=== PATIENT | male | born 1965 | race Caucasian/White ===

== ENCOUNTER 2024-04-21 08:38 | Outpatient (OUT) | payer OTHER, SELFPAY ==
--- NOTE | 2024-04-20 10:45 | VEINCLINIC_ITS ---
Vital Signs 04/21/24 08:49 Height 6 ft Weight 161.025 kg BMI 48.1 BP 110/66 BP Location Left Brachial BP Position Sitting BP Cuff Size Adult BP Source Manual Cuff Respiration 18 Pulse 67 Pulse Oximetry (%) 97 Varicose Veins Patient on this day for comprehensive consult for bilateral painful varicose veins. Referred by Dr. Han for chronic edema that is worsening. He is on Lasix which has helped. 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 Patient has worn stockings for the past 3 years with minimal relief. Nam Vargas MD personally performed the services described in this documentation, as scribed by Jena Garrett RN in my presence and it is both accurate and complete. IJena RN, am scribing for, and in the presence of, Dr. Nam Meza and in the presence of the patient. thigh: bilateral, knee: bilateral, calf: bilateral, ankle: bilateral and robert: bilateral tender 7 10 years Worsened in recent months: Yes standing elevating extremities and compression stockings Reports fatigue, heaviness, limb pain, edema and leg edema History of lower extremity trauma: Yes Superficial thrombophlebitis: No Family history of varicose veins: no Has patient had previous lower extremity venous surgery: No Patient has previously received the following treatment(s) for lower extremity varicose veins: Reports none Does patient have a history of : not applicable Does patient intend to have future pregnancies: not applicable Has patient had lower extremity venous scan with relux testing: Yes Support hose used: Yes Problems walking or doing physical activity: Yes How does it affect you: effects ADL and work life Do you walk much: Yes Do you stand much: Yes Review of Systems ROS Narrative Patient has heeled right robert wound. Nam aVrgas MD personally performed the services described in this documentation, as scribed by Jena Garrett RN in my presence and it is both accurate and complete. IJena RN, am scribing for, and in the presence of, Dr. Nam Meza and in the presence of the patient. Status of ROS 10 or more systems reviewed and unremark able except as noted in history and below Cardiovascular Reports: edema and swelling of feet/ankles Musculoskeletal Reports: extremity pain, extremity swelling, joint pain and joint swelling Integumentary/Breast Reports: skin tenderness [facility] Medical History (Updated 04/21/24 @ 09:40 by Jena Garrett, SINDI) Pain due to varicose veins of both lower extremities ?I83.813 - Varicose veins of bilateral lower extremities with pain (ICD-10) Melanoma ?C43.9 - Malignant melanoma of skin, unspecified (ICD-10) Hypertension ?I10 - Essential (primary) hypertension (ICD-10) Vertigo ?R42 - Dizziness and giddiness (ICD-10) 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, unspecified (ICD-10) Myocardial infarct ?I21.9 - Acute myocardial infarction, unspecified (ICD-10) CAD (coronary artery disease) ?I25.10 - Atherosclerotic heart disease of [place] coronary artery without angina pectoris (ICD-10) Hypercholesteremia ?E78.00 - Pure hypercholesterolemia, unspecified (ICD-10) AAA (abdominal aortic aneurysm) ?I71.40 - Abdominal aortic aneurysm, without rupture, unspecified (ICD-10) Surgical History (Updated 04/21/24 @ 08:58 by Jena Garrett RN) S/P lateral meniscus repair of right knee ?Z98.890 - Other specified postprocedural states (ICD-10) H/O heart artery stent ?Z95.5 - Presence of coronary angioplasty implant and graft (ICD-10) History of endovascular stent graft for abdominal aortic aneurysm (AAA) ?Z95.828 - Presence of other vascular implants and grafts (ICD-10) Family History (Updated 04/21/24 @ 08:59 by Jena Garrett RN) Mother Family history of cancer Father Family history of myocardial infarction Family history of hypertension Family history of stroke Social History (Updated 04/21/24 @ 09:00 by Jena Garrett RN) Within the past year, how many standard drinks containing alcohol did you have on a typical day: 7 to 9 Smoking status: Former smoker Do you use any of these nicotine containing products: smokeless tobacco Nicotine containing products detail: smoked 3-4 PPD for 35 days. Quit 13 years ago. Non-prescribed substance use: denies use Meds Home Medications and Allergies Home Medications ?Medication ?Instructions ?Recorded ?Confirmed ?Type albuterol 90 mcg/actuation aerosol mcg inhalation 04/21/24 History inhaler aspirin 81 mg tablet,delayed 81 mg PO DAILY 04/21/24 04/21/24 History release (Adult Low Dose Aspirin) furosemide 20 mg tablet 20 mg PO DAILY 04/21/24 04/21/24 History lisinopril 10 mg tablet 10 mg PO DAILY 04/21/24 04/21/24 History lovastatin 10 mg tablet 10 mg PO DAILY 04/21/24 04/21/24 History nitroglycerin 0.4 mg sublingual 0.4 mg sublingual Q5M 04/21/24 04/21/24 History tablet potassium chloride 20 mEq oral 20 meq PO DAILY 04/21/24 04/21/24 History packet (Klor-Con) Allergies Allergy/AdvReac Type Severity Reaction Status Date / Time No Known Drug Allergies Allergy Unverified 04/21/24 09:00 Exam Narrative Exam Narrative: INam MD personally performed the services described in this documentation, as scribed by Jena Garrett RN in my presence and it is both accurate and complete. IJena RN, am scribing for, and in the presence of, Dr. Nam Meza and in the presence of the patient. Constitutional Documenting provider has reviewed patient's vital signs: yes Common normals: oriented x3 Nutritional appearance: overweight Lymph Lymphatic: no lymphedema noted Cardio Peripheral pulses: posterior tibial pulses present and dorsalis pedis pulses present Extremity General: calf tenderness, edema and other findings Right lower extremity: lower leg Right lower leg: inspection and palpation Left lower extremity: lower leg Left lower leg: inspection and palpation Neuro Common normals: oriented x3 Assessment and Plan Assessment and Plan (1) Pain due to varicose veins of both lower extremities: Plan Explained vein anatomy and physiology to patient. Explained the development of varicose veins to patient.? Explained varicose vein treatments to patient, including laser ablation, microfoam chemical ablation (Varithena), injection sclerotherapy and microphlebectomy.? Explained potential risks and benefits of varicose vein treatments.? Patient verbalizes understanding and wants to pursue varicose vein treatment.? Dr. Meza examines patient and reviews results of bilateral leg reflux u/s.? Patient and Dr. Meza creates a plan of care.? Patient also agrees to purchase bilateral thigh high compression stockings and wear them as educated.? Patient also educated on exercise and rest elevation of bilateral legs. Plan is to start with EVLT of left GSV. Prior authorization initiated. Will call patient to schedule when approved. Will initiate lymphedema clinic referral. I, Nam West, MD personally performed the services described in this documentation, as scribed by Jena Garrett RN in my presence and it is both accurate and complete. I, Jena Garrett RN, am scribing for, and in the presence of, Dr. Nam Meza and in the presence of the patient.
--- NOTE | 2024-04-20 10:46 | W.VEIN ---
Discharge Plan Discharge Disposition: Home, Self-Care Outpatient Diagnostics: VC Endovenous Perf Ablation LT (Routine) Timeframe: 2 Months Facility: [facility] - Location: Vein Center Ordered By: Nam Meza Follow Up Appointments: will call patient to schedule Plan of Treatment: prior authorization needed. Referral to lymphedema. Patient Instructions: Endovenous Ablation (GEN) Print Language: Syriac Discharge Date/Time: 04/21/24 10:15
--- NOTE | 2024-04-21 08:45 | VEIN_ITS ---
Patient Name: LIZZY KELLY MR#: [id number] : 1965 Exam Date: 04/21/2024 Ordering Doctor: DR RONY SAUNDERS D.P.M. RADIOLOGY REPORT PROCEDURE: [facility] - OFFICE VISIT INITIAL COMPARISON: None. PROGRESS NOTES: 58-year-old male who presents a long history of lower extremity painful varicose veins with chronic subcutaneous edema period this culminated in a nonhealing wound along the right ankle. The patient was referred by Dr. Rangel . 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 His swelling is significantly decreased when he wakes from sleep. Patient does have some relief with compression stockings and leg elevation. The patient denies any signs and symptoms to suggest arterial ischemia. The patient describes a family history significant for cancer myocardial infarction hypertension and stroke. The patient does drink 79 drinks per day. The patient does not currently smoke but does use smokeless tobacco. The patient has a 90-100 pack year history of smoking discontinuing 13 years ago. The patient's current medical history is significant for melanoma, primary hypertension, vertigo, myocardial infarction, coronary artery disease with 4 stents. Hypercholesterolemia and a 12 cm abdominal aortic aneurysm with endograft placement. No history of deep venous thrombus or pulmonary embolus. See separate history and physical for medication list. No prior treatment for varicose or spider veins. After review of nurse notes, history and physical exam I discussed at length the pathophysiology of venous hypertension and possible treatments, therapies and strategies available. We discussed at length the importance of elevating the lower extremities above the level of the heart, increased physical activity and compression stocking use. 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 I did refer the patient to the lymphedema clinic. We did discussed intravenous laser ablation micro foam chemical ablation at length. Risks benefits and alternatives were discussed with the patient. We decided to start with the worst vein, the left great saphenous vein to CF patient has some improvement in symptoms. Additionally the patient purchased 30-40 mm knee high compression stockings for lymphedema. The patient was given referral to the lymphedema clinic. Ultrasound venous reflux study performed the same day was discussed at length with the patient. The report demonstrates moderate right and mild left great saphenous vein venous insufficiency with dilatation and saphenofemoral junction reflux. Incompetent right leg perforating vein in the region of the patient's ulcer. Bilateral incompetent varicose veins PHYSICAL EXAM: The right leg demonstrates mild scattered varicose and reticular veins. Extensive subcutaneous edema below the knee with pitting edema. Evidence of healing venous stasis ulceration on the ankle. Multiple scars. The left leg demonstrates mild scattered varicose reticular veins. Extensive subcutaneous edema below the knee with pitting edema. Multiple scars. Both thighs, legs and feet were symmetrically warm to the touch. posterior tibial and dorsalis pedis pulses were not definitively , possibly related to edema. VEIN/VC Facility EST Comprehensive IMPRESSION: 1. Bilateral great saphenous vein and right leg perforating vein venous insufficiency with dilatation and saphenofemoral junction reflux 2. Bilateral lower extremity varicose veins 3. Severe multifactorial lower extremity subcutaneous edema 4. No definite flow significant arterial disease 5. CEAP: C5, Ep, Asd, Pr PLAN: 1. Endovenous laser ablation of the left patient has we will right great saphenous vein right perforating vein 2. Micro foam chemical ablation bilateral incompetent varicose veins 3. Long-term use of bilateral knee high 30-40 mm compression stockings 4. Referral to the [facility] 5. Elevated legs , weight loss and increased physical activity for symptomatic relief Nurse notes, history and physical were reviewed and confirmed, see attached forms. The nurse was present throughout the physical exam and consultation Dictated by: Nam Meza MD on 04/21/2024 at 11:13 Approved by: Nam Meza MD on 04/21/2024 at 11:20
--- NOTE | 2024-04-21 08:46 | VEIN_ITS ---
Patient Name: LIZZY KELLY MR#: [id number] : 1965 Exam Date: 04/21/2024 Ordering Doctor: DR RONY SAUNDERS D.P.M. RADIOLOGY REPORT PROCEDURE: VC EXT VENOUS REFLUX GELA LMTD COMPARISON: None. INDICATIONS: I83.813 Bilateral painful varicose veins TECHNIQUE: Duplex imaging of the lower extremity to assess the deep and superficial venous system for the presence of deep or superficial venous incompetence and to document the location and severity of disease. The study includes evaluation of the great saphenous vein (GSV), anterior accessory saphenous vein (AASV) and small saphenous vein (SSV). Patient scanned in reverse Trendelenburg and standing. FINDINGS: RIGHT LOWER EXTREMITY: Saphenofemoral Junction Reflux: Yes 9.9mm 1.5 sec GSV: Diam (mm) Reflux/ Time (sec) Proximal Thigh 5.8 Yes 0.7 Mid Thigh 5.8 Yes 0.9 Distal Thigh 4.7 Yes 0.5 Prox Calf 4.0 No Mid Calf 3.9 Yes 1.2 Saphenopopliteal Junction Reflux: 5.5mm Yes 0.8 SSV: Proximal Calf 3.1 No Mid Calf 2.7 No AASV: Not present Thrombi: No acute or chronic thrombus visualized Compressibility: Normal Flow: Normal Preforator: Dist/med calf 6.4mm with 0.7s reflux. Tech Note: Incompetent GSV. Patent varicose vein mid/med calf 4.3mm with 1.7s reflux. Patent varicose vein medial knee 4.0mm with 0.9s reflux. Patent varicose vein 3.4mm with 1.4s reflux. LEFT LOWER EXTREMITY: Saphenofemoral Junction Reflux: Yes 11.1 mm 1.6 sec GSV: Diam (mm) Reflux/Time (sec) Proximal Thigh 6.5 Yes 1.2 Mid Thigh 6.7 No Distal Thigh 6.6 Yes 0.7 Prox Calf 5.3 Yes 3.7 Mid Calf 4.5 Yes 3.5 Saphenopopliteal Junction Relux: 4.5 mm No SSV: Proximal Calf 2.7 No Mid Calf 3.0 No AASV: Not present Thrombi: No acute or chronic thrombus visualized Compressibility: Normal Flow: Normal [employer] Driver: No patent perforators visualized. Tech Note: Incompetent GSV. Patent varicose vein mid/med calf 5.4mm with 2.2s reflux. Patent varicose vein mid/posterior 5.1mm with 1.5s reflux. CONCLUSION: 1. Mild right and severe left great saphenous vein venous insufficiency with dilatation and saphenofemoral junction reflux 2. Incompetent right leg perforating vein with associated wound 3. Bilateral incompetent varicose veins Dictated by: Nam Meza MD on 04/21/2024 at 09:45 Approved by: Nam Meza MD on 04/21/2024 at 09:47
[2024-04-21 08:49] VITALS: BP 110/66; PULSE 67; O2SAT 97; BMI 48.1
== END 2024-04-21 10:15 | disposition home or self-care (01) ==
LOC: VC 08:39
PROVIDERS: PCP Podiatrist Foot & Ankle Surgery; Visit Provider Podiatrist Foot & Ankle Surgery
DX: I87.2 Venous insufficiency (chronic) (peripheral) (principal); L03.115 Cellulitis of right lower limb; I83.813 Varicose veins of bilateral lower extremities with pain
CPT/HCPCS: 93970; G0463

== ENCOUNTER 2024-04-24 09:40 | Outpatient (RCR) | payer OTHER, SELFPAY | END 2024-05-16 13:32 | disposition home or self-care (01) | LOC: OT 09:40 | PROVIDERS: PCP Podiatrist Foot & Ankle Surgery; Visit Provider Radiology Diagnostic Radiology | DX: R60.0 Localized edema (principal); I89.0 Lymphedema, not elsewhere classified | CPT/HCPCS: 97140; 97167; 97535 ==

== ENCOUNTER 2024-06-04 08:35 | Outpatient (OUT) | payer OTHER, SELFPAY ==
--- NOTE | 2024-06-03 15:24 | VEINCLINIC_ITS ---
Vital Signs 06/04/24 08:59 BP 150/72 H BP Location Right Brachial BP Position Sitting BP Cuff Size Large Adult BP Source Manual Cuff Respiration 18 Pulse 79 Pulse Source Monitor Pulse Oximetry (%) 95 Oxygen Delivery Method Room Air Comment The patient's blood pressure is elevated. Varicose Veins Patient in this day for EVLT of left GSV Nam Vargas MD personally performed the services described in this documentation, as scribed by Dylan Ying RN in my presence and it is both accurate and complete. Dylan Vargas RN, am scribing for, and in the presence of, Dr. Nam Meza and in the presence of the patient. thigh: bilateral, knee: bilateral, calf: bilateral, ankle: bilateral and robert: bilateral tender 7 10 years Worsened in recent months: Yes standing elevating extremities and compression stockings Reports fatigue, heaviness, limb pain, edema and leg edema History of lower extremity trauma: Yes Superficial thrombophlebitis: No Family history of varicose veins: no Has patient had previous lower extremity venous surgery: No Patient has previously received the following treatment(s) for lower extremity varicose veins: Reports none Does patient have a history of : not applicable Does patient intend to have future pregnancies: not applicable Has patient had lower extremity venous scan with relux testing: Yes Support hose used: Yes Problems walking or doing physical activity: Yes How does it affect you: effects ADL and work life Do you walk much: Yes Do you stand much: Yes Review of Systems ROS Narrative Patient has heeled right robert wound. Nam Vargas MD personally performed the services described in this documentation, as scribed by Dylan Ying RN in my presence and it is both accurate and complete. Dylan Vargas RN, am scribing for, and in the presence of, Dr. Nam Meza and in the presence of the patient. Status of ROS 10 or more systems reviewed and unremark able except as noted in history and below Cardiovascular Reports: edema and swelling of feet/ankles Musculoskeletal Reports: extremity pain, extremity swelling, joint pain and joint swelling Integumentary/Breast Reports: skin tenderness [facility] Medical History (Updated 06/04/24 @ 08:55 by Dylan Ying) Thrombophlebitis of femoropopliteal vein of left lower extremity ?I80.02 - Phlebitis and thrombophlebitis of superficial vessels of left lower extremity (ICD-10) Pain due to varicose veins of both lower extremities ?I83.813 - Varicose veins of bilateral lower extremities with pain (ICD-10) Melanoma ?C43.9 - Malignant melanoma of skin, unspecified (ICD-10) Hypertension ?I10 - Essential (primary) hypertension (ICD-10) Vertigo ?R42 - Dizziness and giddiness (ICD-10) 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, unspecified (ICD-10) Myocardial infarct ?I21.9 - Acute myocardial infarction, unspecified (ICD-10) CAD (coronary artery disease) ?I25.10 - Atherosclerotic heart disease of [place] coronary artery without angina pectoris (ICD-10) Hypercholesteremia ?E78.00 - Pure hypercholesterolemia, unspecified (ICD-10) AAA (abdominal aortic aneurysm) ?I71.40 - Abdominal aortic aneurysm, without rupture, unspecified (ICD-10) Surgical History (Updated 06/04/24 @ 09:25 by Dylan Ying) Status post laser ablation of incompetent vein ?Z98.890 - Other specified postprocedural states (ICD-10) S/P lateral meniscus repair of right knee ?Z98.890 - Other specified postprocedural states (ICD-10) H/O heart artery stent ?Z95.5 - Presence of coronary angioplasty implant and graft (ICD-10) History of endovascular stent graft for abdominal aortic aneurysm (AAA) ?Z95.828 - Presence of other vascular implants and grafts (ICD-10) Family History (Updated 04/21/24 @ 08:59 by Jena Garrett RN) Mother Family history of cancer Father Family history of myocardial infarction Family history of hypertension Family history of stroke Social History (Updated 04/21/24 @ 09:00 by Jena Garrett RN) Within the past year, how many standard drinks containing alcohol did you have on a typical day: 7 to 9 Smoking status: Former smoker Do you use any of these nicotine containing products: smokeless tobacco Nicotine containing products detail: smoked 3-4 PPD for 35 days. Quit 13 years ago. Non-prescribed substance use: denies use Meds Home Medications and Allergies Home Medications ?Medication ?Instructions ?Recorded ?Confirmed ?Type albuterol 90 mcg/actuation aerosol mcg inhalation 04/21/24 History inhaler aspirin 81 mg tablet,delayed 81 mg PO DAILY 04/21/24 04/21/24 History release (Adult Low Dose Aspirin) furosemide 20 mg tablet 20 mg PO DAILY 04/21/24 04/21/24 History lisinopril 10 mg tablet 10 mg PO DAILY 04/21/24 04/21/24 History lovastatin 10 mg tablet 10 mg PO DAILY 04/21/24 04/21/24 History nitroglycerin 0.4 mg sublingual 0.4 mg sublingual Q5M 04/21/24 04/21/24 History tablet potassium chloride 20 mEq oral 20 meq PO DAILY 04/21/24 04/21/24 History packet (Klor-Con) Allergies Allergy/AdvReac Type Severity Reaction Status Date / Time No Known Drug Allergies Allergy Unverified 04/21/24 09:00 Exam Narrative Exam Narrative: Nam Vargas MD personally performed the services described in this documentation, as scribed by Dylan Ying RN in my presence and it is both accurate and complete. IDylan RN, am scribing for, and in the presence of, Dr. Nam Meza and in the presence of the patient. Constitutional Documenting provider has reviewed patient's vital signs: yes Common normals: oriented x3 Nutritional appearance: overweight Lymph Lymphatic: no lymphedema noted Cardio Peripheral pulses: posterior tibial pulses present and dorsalis pedis pulses present Extremity General: calf tenderness, edema and other findings Right lower extremity: lower leg Right lower leg: inspection and palpation Left lower extremity: lower leg Left lower leg: inspection and palpation Neuro Common normals: oriented x3 Assessment and Plan Assessment and Plan (1) Pain due to varicose veins of both lower extremities: Plan f/u evaluation with physician along with left leg limited u/s Nam Vargas MD personally performed the services described in this documentation, as scribed by Dylan Ying RN in my presence and it is both accurate and complete. Dylan Vargas RN, am scribing for, and in the presence of, Dr. Nam Meza and in the presence of the patient. Procedures Procedure Instructions Procedures Plan of care: Risks and benefits of the procedure were discussed at length and informed written consent was obtained.? Time-out completed for verification of correct patient, procedure and site.? Staff present during time-out: Dylan Ying RN,? Nam Meza MD, Carmen Roque RDMS,RVT. Time Out Time__929____ Patient prepped and procedure performed in usual sterile fashion. Risk of injury related to use of Diode laser and/or laser devices__CR___ ? Serial number of laser used :? [id number] Control panel self test performed, electrical cords in good condition, floor is dry, basin of water available, fire extinguisher in close proximity_CR__ Polycarbonate goggles available and Laser warning signs outside of doors___CR__ Eye protection provided to patient and staff in room_CR___ Use of laser retardant drapes and dull blackened instruments as directed__CR___ Use of nonflammable prep solutions and use of saline soaked sponges to protect tissues as indicated _CR___ Length ___43 cm Laser operated by __Dr. Meza Physician verbal confirmation laser locked in place__CR__ Laser start time (date and time) _06/04/2024@_0943 Laser stop time(date and time) _06/04/2024@_0948 Lisa _8.0___ Average laser use __2252 Joules Average laser use__281 seconds Pulse continuous ___CR_? Pulse intermittent ___ Amount of Tumescent used _300cc Evaluated patient for signs and symptoms of electrical injury __CR___ ? Skin clear at insertion site __CR___ Patient tolerated procedure well.? Left leg Coban dressing applied to access site.? Applied Left thigh high leg compression stocking. Will return on 06/10/2024 for Left leg limited venous ultrasound and exam. INam MD personally performed the services described in this documentation, as scribed by Dylan Ying RN in my presence and it is both accurate and complete. I, Dylan Ying RN, am scribing for, and in the presence of, Dr. Nam Meza and in the presence of the patient.
--- NOTE | 2024-06-03 15:27 | W.VEIN ---
Discharge Plan Discharge Disposition: Home, Self-Care Outpatient Diagnostics: VC Facility EST LMTD (Routine) Timeframe: 2 Weeks Facility: [facility] - Location: Vein Center Ordered By: Nam Meza VC EXT Venous LT Limited (Routine) Timeframe: 2 Weeks Facility: [facility] - Location: Vein Center Ordered By: Nam Meza Follow Up Appointments: 06/10/2024 Plan of Treatment: f/u evaluation with physician along with left leg limited u/s Patient Instructions: Endovenous Ablation (DC) Print Language: Divehi Discharge Date/Time: 06/04/24 09:24
[2024-06-04] MEDS: 0.9 % SODIUM CHLORIDE 500 ML, LIDOCAINE HCL 20 ML, SODIUM BICARBONATE 10 MEQ INJ (08:40)
[2024-06-04] MEDS: LIDOCAINE HCL 1% 100 MG/10 ML MDV INJ (08:40)
--- NOTE | 2024-06-04 08:57 | VEIN_ITS ---
[address] [address] Patient Name: LIZZY KELLY MRN: [id number] date: 1965 Sex: M Assigned Patient Location: Current Patient Location: Accession/Order Number: [id number] Exam Date: 06/04/2024 08:57 Report Date: 06/04/2024 09:55 At the request of: ALEX CHARLES Procedure: VC Endovenous Ablation 1VeinLT EXAMINATION: VC Endovenous Ablation 1Vein, left great saphenous vein HISTORY: I83.813 - Varicose veins of bilateral lower extremities w... COMPARISON: No relevant comparison available. TECHNIQUE: The risks and benefits of the procedure had been previously discussed, and were rediscussed at length. Informed written consent was obtained. Hilary Woods and Dylan Ying assisted. Time out procedure was performed. The left lower extremity was prepared and draped in the usual sterile fashion to allow knee flexion in the sterile field. Duplex ultrasound probe was draped in a sterile cover, sterile transmission gel was used. Venous mapping was performed with the areas of dilation and large tributaries marked. The total length was 43 cm from the entry upper calf to 3 cm below the saphenofemoral junction. The vein beneath the entry point was not amenable to ablation. The diameter of the greater saphenous vein ranged from 4-7 mm. A 30 gauge needle and 1% buffered lidocaine was used to anesthetize the entry site. A 4 mm incision was made with a scalpel and the saphenous vein was entered percutaneously under direct ultrasound guidance with a micropuncture set, a single stick was successful in gaining access. A micro-guide wire was inserted and the needle removed. A micro-set including a dilator was inserted over the microwire and the needle and dilator were removed. A 0.018 guide wire was inserted through the micro-set and threaded through the saphenous vein to the saphenofemoral junction. The dilator was removed and an introducer sheath was inserted over the wire until the end of the sheath entered the saphenofemoral junction. The dilator and wire were removed and the 600 micron fiber was introduced and placed and positioned so that it extended beyond the sheath and was 3 cm peripheral to the saphenofemoral femoral junction. Final position of the fiber was determined by ultrasound guidance and duplex imaging. Tumescent anesthetic was delivered by ultrasound guidance. 300 cc of fluid was delivered along the entire course of the saphenous vein. The solution consisted of 1000 cc of normal saline with 40 mL of 1% lidocaine and 20 mL of sodium bicarbonate. A final positioning check was made. The energy source was turned on by means of the foot pedal and the fiber and sheath were withdrawn. The total number of Joules delivered was 2252. The laser was active for 281seconds under continuous pulse, average laser use of 8 J. Laser start time 9:43 AM 06/04/2024 . Laser stop time 9:48 AM 06/04/2024 . A duplex ultrasound revealed compressibility and flow at the saphenofemoral junction immediately after the procedure. Hemostasis at the access site was achieved. The skin incision of the saphenous vein was closed with a 4 x 4. A compression stocking was applied. Postop instructions were given. A follow up appointment was recommended and scheduled. The patient tolerated the procedure well and was discharged in good condition . VEIN/VC Endovenous Ablation 1VeinLT IMPRESSION: Technically successful endovenous laser ablation left great saphenous vein Electronically authenticated by: ALEX CHARLES Date: 06/04/2024 09:55
[2024-06-04 08:59] VITALS: BP 150/72; PULSE 79; O2SAT 95
== END 2024-06-04 09:24 | disposition home or self-care (01) ==
LOC: VC 08:35
PROVIDERS: PCP Podiatrist Foot & Ankle Surgery; Visit Provider Radiology Diagnostic Radiology
DX: I83.813 Varicose veins of bilateral lower extremities with pain (principal)
CPT/HCPCS: 36478

== ENCOUNTER 2024-06-10 09:13 | Outpatient (OUT) | payer OTHER, SELFPAY ==
--- NOTE | 2024-06-10 09:14 | VEIN_ITS ---
Patient Name: LIZZY KELLY MR#: [id number] : 1965 Exam Date: 06/10/2024 Ordering Doctor: DR NAM MEZA M.D. RADIOLOGY REPORT PROCEDURE: VC EXT VENOUS LT LIMITED COMPARISON: None. INDICATIONS: I80.02 - Phlebitis and thrombophlebitis of superficial veins left leg TECHNIQUE: Lower extremity hudson scale and Duplex Doppler evaluation of the deep venous system from the inguinal ligament through the calf veins. FINDINGS: REGION: Left lower extremity. THROMBI: Negative for DVT. Heat induced thrombus in left GSV 1.5 cm from SFJ and extends to proximal lower leg. COMPRESSIBILITY: Non-compressible segments corresponding to thrombus FLOW: Areas of no flow corresponding to thrombus CONCLUSION: Post ablation occlusion of the left great saphenous vein with heat induced thrombus 1.5 cm from the saphenofemoral junction and no deep vein thrombus Dictated by: Nam Meza MD on 06/10/2024 at 09:41 Approved by: Nam Meza MD on 06/10/2024 at 09:42
--- NOTE | 2024-06-10 09:14 | VEIN_ITS ---
Patient Name: LIZZY KELLY MR#: [id number] : 1965 Exam Date: 06/10/2024 Ordering Doctor: DR NAM MEZA M.D. RADIOLOGY REPORT PROCEDURE: FACILITY EST LMTD [facility] - OFFICE VISIT FOLLOW UP COMPARISON: None. PROGRESS NOTES: The patient reports no significant problems following intravenous laser ablation of the left great saphenous vein. The patient has worn his compression stocking as directed for the patient has tried exercise. Physical exam demonstrates several small areas of bruising in the medial left thigh likely related to tumescence injection. The incision is sealed. Thrombosed left great saphenous vein can be partially palpated. No erythema or warmth to suggest cellulitis or thrombophlebitis. No active ulceration Review of the ultrasound performed the same day demonstrates occlusive thrombus extending throughout the treated left great saphenous vein with heat induced thrombus 1.5 cm from the saphenofemoral junction. No deep vein thrombus. The patient expressed a desire to proceed with treatment of incompetent right great saphenous vein. VEIN/ Facility EST LMTD IMPRESSION: 1. Successful ablation of the left great saphenous vein. 2. Persistent incompetent right great saphenous vein. PLAN: Intravenous laser ablation right great saphenous vein Nurse notes, history and physical were reviewed and confirmed, see attached forms. The nurse was present throughout the physical exam and consultation Dictated by: Nam Meza MD on 06/10/2024 at 09:50 Approved by: Nam Meza MD on 06/10/2024 at 09:52
--- NOTE | 2024-06-10 09:57 | VEINCLINIC_ITS ---
Vital Signs 06/10/24 09:58 Height 6 ft Weight 161 kg BMI 48.1 Varicose Veins Patient in today for follow up ultrasound of left lower extremity following EVLT of left leg GSV completed on 06/04/24. Nam Vargas MD personally performed the services described in this documentation, as scribed by Dinorah Jimenes RDMS in my presence and it is both accurate and complete. Dinorah Vargas RDMS, am scribing for, and in the presence of, Dr. Nam Meza and in the presence of the patient. thigh: bilateral, knee: bilateral, calf: bilateral, ankle: bilateral and robert: bilateral tender 7 10 years Worsened in recent months: Yes standing elevating extremities and compression stockings Reports fatigue, heaviness, limb pain, edema and leg edema History of lower extremity trauma: Yes Superficial thrombophlebitis: No Family history of varicose veins: no Has patient had previous lower extremity venous surgery: No Patient has previously received the following treatment(s) for lower extremity varicose veins: Reports none Does patient have a history of : not applicable Does patient intend to have future pregnancies: not applicable Has patient had lower extremity venous scan with relux testing: Yes Support hose used: Yes Problems walking or doing physical activity: Yes How does it affect you: effects ADL and work life Do you walk much: Yes Do you stand much: Yes Review of Systems ROS Narrative Nam Vargas MD personally performed the services described in this document ation, as scribed by Dinorah Jimenes RDMS in my presence and it is both accurate and complete. Dinorah Vargas RDMS, am scribing for, and in the presence of, Dr. Nam Meza and in the presence of the patient. Status of ROS 10 or more systems reviewed and unremark able except as noted in history and below Cardiovascular Reports: edema and swelling of feet/ankles Musculoskeletal Reports: extremity pain, extremity swelling, joint pain and joint swelling Integumentary/Breast Reports: skin tenderness 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, unspecified (ICD-10) Myocardial infarct ?I21.9 - Acute myocardial infarction, unspecified (ICD-10) CAD (coronary artery disease) ?I25.10 - Atherosclerotic heart disease of [place] coronary artery without angina pectoris (ICD-10) Hypercholesteremia ?E78.00 - Pure hypercholesterolemia, unspecified (ICD-10) AAA (abdominal aortic aneurysm) ?I71.40 - Abdominal aortic aneurysm, without rupture, unspecified (ICD-10) Surgical History (Updated 06/04/24 @ 09:25 by Dylan Ying) Status post laser ablation of incompetent vein ?Z98.890 - Other specified postprocedural states (ICD-10) S/P lateral meniscus repair of right knee ?Z98.890 - Other specified postprocedural states (ICD-10) H/O heart artery stent ?Z95.5 - Presence of coronary angioplasty implant and graft (ICD-10) History of endovascular stent graft for abdominal aortic aneurysm (AAA) ?Z95.828 - Presence of other vascular implants and grafts (ICD-10) Family History (Updated 04/21/24 @ 08:59 by Jena Garrett RN) Mother Family history of cancer Father Family history of myocardial infarction Family history of hypertension Family history of stroke Social History (Updated 04/21/24 @ 09:00 by Jena Garrett RN) Within the past year, how many standard drinks containing alcohol did you have on a typical day: 7 to 9 Smoking status: Former smoker Do you use any of these nicotine containing products: smokeless tobacco Nicotine containing products detail: smoked 3-4 PPD for 35 days. Quit 13 years ago. Non-prescribed substance use: denies use Meds Home Medications and Allergies Home Medications ?Medication ?Instructions ?Recorded ?Confirmed ?Type albuterol 90 mcg/actuation aerosol mcg inhalation 04/21/24 History inhaler aspirin 81 mg tablet,delayed 81 mg PO DAILY 04/21/24 04/21/24 History release (Adult Low Dose Aspirin) furosemide 20 mg tablet 20 mg PO DAILY 04/21/24 04/21/24 History lisinopril 10 mg tablet 10 mg PO DAILY 04/21/24 04/21/24 History lovastatin 10 mg tablet 10 mg PO DAILY 04/21/24 04/21/24 History nitroglycerin 0.4 mg sublingual 0.4 mg sublingual Q5M 04/21/24 04/21/24 History tablet potassium chloride 20 mEq oral 20 meq PO DAILY 04/21/24 04/21/24 History packet (Klor-Con) Allergies Allergy/AdvReac Type Severity Reaction Status Date / Time No Known Drug Allergies Allergy Unverified 04/21/24 09:00 Exam Narrative Exam Narrative: Nam Vargas MD personally performed the services described in this documentation, as scribed by Dinorah Jimenes RDMS in my presence and it is both accurate and complete. Dinorah Vargas RDMS, am scribing for, and in the presence of, Dr. Nam Meza and in the presence of the patient. Constitutional Documenting provider has reviewed patient's vital signs: yes Common normals: oriented x3 Nutritional appearance: overweight Lymph Lymphatic: no lymphedema noted Cardio Peripheral pulses: posterior tibial pulses present and dorsalis pedis pulses present Extremity General: calf tenderness, edema and other findings Right lower extremity: lower leg Right lower leg: inspection and palpation Left lower extremity: lower leg Left lower leg: inspection and palpation Neuro Common normals: oriented x3 Results Imaging Venous US: Radiologist's impression: Heat induced thrombus in left GSV 1.5 cm from SFJ and extends to proximal lower leg. Nam Vargas MD personally performed the services described in this documentation, as scribed by Dinorah Jimenes RDMS in my presence and it is both accurate and complete. Dinorah Vargas RDMS, am scribing for, and in the presence of, Dr. Nam Meza and in the presence of the patient. Assessment and Plan Assessment and Plan (1) Thrombophlebitis of femoropopliteal vein of left lower extremity: Plan Plan is for patient to return for EVLT of right leg GSV on 06/18/24. Nam Vargas MD personally performed the services described in this documentation, as scribed by Dinorah Jimenes RDMS in my presence and it is both accurate and complete. I, Dinorah Jimenes RDMS, am scribing for, and in the presence of, Dr. Nam Meza and in the presence of the patient.
[2024-06-10 09:58] VITALS: BMI 48.1
--- NOTE | 2024-06-10 10:01 | P.DS_ITS ---
Discharge Plan Discharge Disposition: Home, Self-Care Outpatient Diagnostics: VC Endovenous Ablation 1VeinRT (Routine) Timeframe: 2 Weeks Facility: [facility] - Location: Vein Center Ordered By: Nam Meza Follow Up Appointments: 06/18/24 Plan of Treatment: EVLT of right GSV EVLT Tumescent Anesthesia: 500 mL 0.9% NS with 20 mL 1% Lidocaine and 10 mL 8.4% NAHCO3 Buffered Local Anesthesia: 10 mL of 1% Lidocaine Buffered Print Language: [place]agu[place] Discharge Date/Time: 06/10/24 10:05
== END 2024-06-10 10:05 | disposition home or self-care (01) ==
PROVIDERS: PCP Radiology Diagnostic Radiology; Visit Provider Radiology Diagnostic Radiology
DX: I80.02 Phlebitis and thrombophlebitis of superficial vessels of left lower extremity (principal)
CPT/HCPCS: 93971; G0463

== ENCOUNTER 2024-06-18 10:52 | Outpatient (OUT) | payer OTHER, SELFPAY ==
--- NOTE | 2024-06-17 16:17 | VEINCLINIC_ITS ---
Vital Signs 06/18/24 10:59 BP 127/77 BP Location Left Brachial BP Position Sitting BP Cuff Size Large Adult BP Source Automatic Cuff Respiration 18 Pulse 74 Pulse Source Monitor Pulse Oximetry (%) 96 Oxygen Delivery Method Room Air Comment The patient's blood pressure is elevated. Varicose Veins Patient in today for EVLT of right GSV Nam Vargas MD personally performed the services described in this documentation, as scribed by Dylan Ying RN in my presence and it is both accurate and complete. IDylan RN, am scribing for, and in the presence of, Dr. Nam Meza and in the presence of the patient. thigh: bilateral, knee: bilateral, calf: bilateral, ankle: bilateral and robert: bilateral tender 7 10 years Worsened in recent months: Yes standing elevating extremities and compression stockings Reports fatigue, heaviness, limb pain, edema and leg edema History of lower extremity trauma: Yes Superficial thrombophlebitis: No Family history of varicose veins: no Has patient had previous lower extremity venous surgery: No Patient has previously received the following treatment(s) for lower extremity varicose veins: Reports none Does patient have a history of : not applicable Does patient intend to have future pregnancies: not applicable Has patient had lower extremity venous scan with relux testing: Yes Support hose used: Yes Problems walking or doing physical activity: Yes How does it affect you: effects ADL and work life Do you walk much: Yes Do you stand much: Yes Review of Systems ROS Narrative Nam Vargas MD personally performed the services described in this documentation, as scribed by Dylan Ying RN in my presence and it is both accurate and complete. Dylan Vargas RN, am scribing for, and in the presence of, Dr. Nam Meza and in the presence of the patient. Status of ROS 10 or more systems reviewed and unremark able except as noted in history and below Cardiovascular Reports: edema and swelling of feet/ankles Musculoskeletal Reports: extremity pain, extremity swelling, joint pain and joint swelling Integumentary/Breast Reports: skin tenderness PFSH PFS Medical History (Updated 06/17/24 @ 16:20 by Dylan Ying) Thrombophlebitis of superficial veins of right lower extremity ?I80.01 - Phlebitis and thrombophlebitis of superficial vessels of right lower extremity (ICD-10) Thrombophlebitis of femoropopliteal vein of left lower extremity ?I80.02 - Phlebitis and thrombophlebitis of superficial vessels of left lower extremity (ICD-10) Pain due to varicose veins of both lower extremities ?I83.813 - Varicose veins of bilateral lower extremities with pain (ICD-10) Melanoma ?C43.9 - Malignant melanoma of skin, unspecified (ICD-10) Hypertension ?I10 - Essential (primary) hypertension (ICD-10) Vertigo ?R42 - Dizziness and giddiness (ICD-10) 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, unspecified (ICD-10) Myocardial infarct ?I21.9 - Acute myocardial infarction, unspecified (ICD-10) CAD (coronary artery disease) ?I25.10 - Atherosclerotic heart disease of [place] coronary artery without angina pectoris (ICD-10) Hypercholesteremia ?E78.00 - Pure hypercholesterolemia, unspecified (ICD-10) AAA (abdominal aortic aneurysm) ?I71.40 - Abdominal aortic aneurysm, without rupture, unspecified (ICD-10) Surgical History (Updated 06/18/24 @ 11:11 by Dylan Ying) Status post laser ablation of incompetent vein ?Z98.890 - Other specified postprocedural states (ICD-10) Status post laser ablation of incompetent vein ?Z98.890 - Other specified postprocedural states (ICD-10) S/P lateral meniscus repair of right knee ?Z98.890 - Other specified postprocedural states (ICD-10) H/O heart artery stent ?Z95.5 - Presence of coronary angioplasty implant and graft (ICD-10) History of endovascular stent graft for abdominal aortic aneurysm (AAA) ?Z95.828 - Presence of other vascular implants and grafts (ICD-10) Family History (Updated 04/21/24 @ 08:59 by Jena Garrett RN) Mother Family history of cancer Father Family history of myocardial infarction Family history of hypertension Family history of stroke Social History (Updated 04/21/24 @ 09:00 by Jena Garrett RN) Within the past year, how many standard drinks containing alcohol did you have on a typical day: 7 to 9 Smoking status: Former smoker Do you use any of these nicotine containing products: smokeless tobacco Nicotine containing products detail: smoked 3-4 PPD for 35 days. Quit 13 years ago. Non-prescribed substance use: denies use Meds Home Medications and Allergies Home Medications ?Medication ?Instructions ?Recorded ?Confirmed ?Type albuterol 90 mcg/actuation aerosol mcg inhalation 04/21/24 History inhaler aspirin 81 mg tablet,delayed 81 mg PO DAILY 04/21/24 04/21/24 History release (Adult Low Dose Aspirin) furosemide 20 mg tablet 20 mg PO DAILY 04/21/24 04/21/24 History lisinopril 10 mg tablet 10 mg PO DAILY 04/21/24 04/21/24 History lovastatin 10 mg tablet 10 mg PO DAILY 04/21/24 04/21/24 History nitroglycerin 0.4 mg sublingual 0.4 mg sublingual Q5M 04/21/24 04/21/24 History tablet potassium chloride 20 mEq oral 20 meq PO DAILY 04/21/24 04/21/24 History packet (Klor-Con) Allergies Allergy/AdvReac Type Severity Reaction Status Date / Time No Known Drug Allergies Allergy Unverified 04/21/24 09:00 Exam Narrative Exam Narrative: Nam Vargas MD personally performed the services described in this documentation, as scribed by Dylan Ying RN in my presence and it is both accurate and complete. Dylan Vargas RN, am scribing for, and in the presence of, Dr. Nam Meza and in the presence of the patient. Constitutional Documenting provider has reviewed patient's vital signs: yes Common normals: oriented x3 Nutritional appearance: overweight Lymph Lymphatic: no lymphedema noted Cardio Peripheral pulses: posterior tibial pulses present and dorsalis pedis pulses present Extremity General: calf tenderness, edema and other findings Right lower extremity: lower leg Right lower leg: inspection and palpation Left lower extremity: lower leg Left lower leg: inspection and palpation Neuro Common normals: oriented x3 Assessment and Plan Assessment and Plan (1) Pain due to varicose veins of both lower extremities: Plan f/u examination with physician along with right leg limited u/s Nam Vargas MD personally performed the services described in this documentation, as scribed by Dylan Ying RN in my presence and it is both accurate and complete. Dylan Vargas RN, am scribing for, and in the presence of, Dr. Nam Meza and in the presence of the patient. Procedures Procedure Instructions Procedures Plan of care: Risks and benefits of the procedure were discussed at length and informed written consent was obtained.? Time-out completed for verification of correct patient, procedure and site.? Staff present during time-out: Dylan Ying RN,? Nam Meza MD, Carmen Roque RDMS,RVT. Time Out Time_[id number] Patient prepped and procedure performed in usual sterile fashion. Risk of injury related to use of Diode laser and/or laser devices__CR___ ? Serial number of laser used :? [id number] Control panel self test performed, electrical cords in good condition, floor is dry, basin of water available, fire extinguisher in close proximity_CR__ Polycarbonate goggles available and Laser warning signs outside of doors___CR__ Eye protection provided to patient and staff in room_CR___ Use of laser retardant drapes and dull blackened instruments as directed__CR___ Use of nonflammable prep solutions and use of saline soaked sponges to protect tissues as indicated _CR___ Length ___43 cm Laser operated by _Dr. Meza Physician verbal confirmation laser locked in place__CR__ Laser start time (date and time) _06/18/2024@__1134 Laser stop time(date and time) __06/18/2024@__1138 Lisa _8.0___ Average laser use __2011 Joules Average laser use seconds Pulse continuous ___CR_? Pulse intermittent ___ Amount of Tumescent used __400cc____ Evaluated patient for signs and symptoms of electrical injury __CR___ ? Skin clear at insertion site __CR___ Patient tolerated procedure well.? Right leg Coban dressing applied to access site.? Applied right thigh high leg compression stocking. Will return on 06/25/2024 for right leg limited venous ultrasound and exam.
--- NOTE | 2024-06-17 16:19 | P.DS_ITS ---
Discharge Plan Discharge Disposition: Home, Self-Care Outpatient Diagnostics: VC Facility EST LMTD (Routine) Timeframe: 2 Weeks Facility: [facility] - Location: Vein Center Ordered By: Nam Meza VC EXT Venous RT LMTD (Routine) Timeframe: 2 Weeks Facility: [facility] - Location: Vein Center Ordered By: Nam eMza Follow Up Appointments: 06/25/2024 Plan of Treatment: f/u examination with physician along with right leg limited u/s Patient Instructions: Endovenous Ablation (DC) Print Language: Korean Discharge Date/Time: 06/18/24 11:13
--- NOTE | 2024-06-18 10:52 | VEIN_ITS ---
[address] [address] Patient Name: LIZZY KELLY MRN: [id number] date: 1965 Sex: M Assigned Patient Location: Current Patient Location: Accession/Order Number: [id number] Exam Date: 06/18/2024 10:55 Report Date: 06/18/2024 12:01 At the request of: ALEX CHARLES Procedure: VC Endovenous Ablation 1VeinRT EXAMINATION: VC Endovenous Ablation 1Vein right great saphenous vein HISTORY: I83.813 - Varicose veins of bilateral lower extremities w... COMPARISON: No relevant comparison available. TECHNIQUE: The risks and benefits of the procedure had been previously discussed, and were rediscussed at length. Informed written consent was obtained. Hilary Woods and Dylan Ying assisted. Time out procedure was performed. The right lower extremity was prepared and draped in the usual sterile fashion to allow knee flexion in the sterile field. Duplex ultrasound probe was draped in a sterile cover, sterile transmission gel was used. Venous mapping was performed with the areas of dilation and large tributaries marked. The total length was 43 cm from the entry mid calf to 3 cm below the saphenofemoral junction. The diameter of the greater saphenous vein ranged from 9-10 mm. A 30 gauge needle and 1% buffered lidocaine was used to anesthetize the entry site. A 4 mm incision was made with a scalpel and the saphenous vein was entered percutaneously under direct ultrasound guidance with a micropuncture set, a single stick was successful in gaining access. A micro-guide wire was inserted and the needle removed. A micro-set including a dilator was inserted over the microwire and the needle and dilator were removed. A 0.018 guide wire was inserted through the micro-set and threaded through the saphenous vein to the saphenofemoral junction. The dilator was removed and an introducer sheath was inserted over the wire until the end of the sheath entered the saphenofemoral junction. The dilator and wire were removed and the 600 micron fiber was introduced and placed and positioned so that it extended beyond the sheath and was 3 cm peripheral to the saphenofemoral femoral junction. Final position of the fiber was determined by ultrasound guidance and duplex imaging. Tumescent anesthetic was delivered by ultrasound guidance. 400 cc of fluid was delivered along the entire course of the saphenous vein. The solution consisted of 1000 cc of normal saline with 40 mL of 1% lidocaine and 20 mL of sodium bicarbonate. A final positioning check was made. The energy source was turned on by means of the foot pedal and the fiber and sheath were withdrawn. The total number of Joules delivered was 2012. The laser was active for 251 seconds under continuous pulse, average laser use of 8 J. Laser start time 11:34 AM 06/18/2024 . Laser stop time 11:38 AM 06/18/2024 . A duplex ultrasound revealed compressibility and flow at the saphenofemoral junction immediately after the procedure. Hemostasis at the access site was achieved. The skin incision of the saphenous vein was closed with a 4 x 4. A compression stocking was applied. Postop instructions were given. A follow up appointment was recommended and scheduled. The patient tolerated the procedure well and was discharged in good condition . VEIN/VC Endovenous Ablation 1VeinRT IMPRESSION: Technically successful endovenous ablation of the right great saphenous vein. Electronically authenticated by: ALEX CHARLES Date: 06/18/2024 12:01
[2024-06-18] MEDS: LIDOCAINE HCL 1% 100 MG/10 ML MDV INJ (10:54)
[2024-06-18] MEDS: 0.9 % SODIUM CHLORIDE 500 ML, LIDOCAINE HCL 20 ML, SODIUM BICARBONATE 10 MEQ INJ (10:55)
[2024-06-18 10:59] VITALS: BP 127/77; PULSE 74; O2SAT 96
--- OUTSIDE RECORDS SUMMARY | 2024-06-18 11:04 | XMS_ITS | CCD ---
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 Lennie Bradford Primary Care Unav ailable MCGuinn II, Dr. Hdz Attending Unavaila ble MCGuinn II, Dr. Hdz Referring Unavaila ble Kyung, Ms. Lennie Bradford Primary Care Unav ailable MCGuinn II, Dr. Hdz Referring Unavaila ble MCGuinn II, Dr. Hdz Attending Unavaila ble Kyung[facility] MCGuinn II, Dr. Hdz Referring Unavaila ble MCGuinn II, Dr. Hdz Attending Unavaila Lennie Davidson Primary Care Physician Chelsea Hough Unavailable Unavailable Gregory, Alicia S Unavailable Unavailable MARNI KELLI Referring Unavailable MARNI KELLI Referring Unavailable AYDIN, MOHAMED Referring Unavailable AYDIN, MOHAMED Admitting Unavailable ASSALY, OMARHEB Attending Unavailable Kyung, Ms. Lennie Juniorbeth Primary Care Unav ailable McGuinn II, Dr. Wilder Esparza Referring Unavailable McGuinn II, Dr. Wilder Esparza Attending Unavailable Lennie TRACEY Attending Unavailable [place] DO Angella SJermain Attending Unavaila ble Xena DO [place] SJermain Attending Unavaila ble Xena DO Angella SJermain Admitting Unavaila ble Julia STRICKLAND, Jacqueline Provider Primary Care Provi erinn BRYAN SAUNDERS Referring Unavailable BRYAN SAUNDERS Attending Unavailable BRYAN SAUNDERS Attending Unavailable BRYAN SAUNDERS Attending Unavailable BRYAN SAUNDERS Attending Unavailable Jacqueline Dumont MD Provider Primary Care Provi erinn Allergies Allergy Classification Reported Allergen(s) Allergy Type Date of Onset Reaction(s) Facility (1 source) Acetaminophen / HYDROcodone; Translations: [Vicodin] Drug Allergy [facility] Repository (1 source) Acetaminophen / oxyCODONE; Translations: [Percocet 5325] Drug Allergy [facility] Repository Medications Current Medications Medication Drug Class(es) Dates Sig (Normalized) Sig (Original) [id number] 200 actuat albuterol 0.09 mg/actuat metered dose inhaler (8 sources) beta2-Adrenergic Agonist take 2 puff(s) by inhalation every four hours for wheezing albuterol HFA 90 mcg/act inhaler Inhale 2 puffs every 4 (four) hours if needed for wheezing Active take 1-2 puff(s) by inhalation every four to six hours as needed Albuterol Sulfate HFA 108 (90 Base) MCG/ACT Inhalation Aerosol Solution INHALE 1 TO 2 PUFFS EVERY 4 TO 6 HOURS NEEDED. Quantity: 90 Refills: 3 Ordered: 26-Feb-2023 DO Active Aspirin 81 mg Tab-EC (10 sources) Start: 05-14-2014 take 1 tablet by mouth once daily Aspirin 81 mg Tab-EC 81 mg = 1 tab(s), Oral, Daily, Refills(s) 0, Blood Thinner Start Date: 05/14/14 Status: Ordered furosemide 20 mg oral tablet (18 sources) Loop Diuretic Start: 10-24-2022 take 1 tablet by mouth once daily furosemide 20 mg Tab 20 mg = 1 tab(s), Oral, Daily, # 90 tab(s), Refills(s) 4, Pharmacy: [facility], 182, cm, 02/20/23 10:23:00 EDT, Height/Length Dosing, 154.6, kg, 02/20/23 10:23:00 EDT, Weight Dosing Start Date: 04/22/23 Status: Ordered lisinopril 10 mg oral tablet (20 sources) Angiotensin Converting Enzyme Inhibitor Start: 12-31-2023 lisinopril 10 MG tablet Take 10 mg by mouth 12/31/2023 Active Start: 11-23-2020 take 1 tablet by anton once daily lisinopril 10 mg Tab 10 mg = 1 tab(s), Oral, Daily, # 90 tab(s), Refills(s) 4, Pharmacy: [facility], 182, cm, 10/24/22 11:03:00 EDT, Height/Length Dosing, 154.8, kg, 10/24/22 10:48:00 EDT, Weight Dosing Start Date: 10/24/22 Status: Ordered Nitro 0.4 mg Tab (4 sources) Start: 05-24-2014 Nitro 0.4 mg T ab = 1 tab(s), SubLingual, q5min, PRN Chest pain, If chest pain not relieved within 5 minutes of taking the 1st dose, seek immediate medical attention not to exceed 3 doses/15 min--if pain persists, seek medical attention, # 25 tab(s) Start Date: 05/24/14 Status: Ordered nitroglycerin 0.4 mg sublingual tablet (20 sources) Nitrate Vasodilator Start: 11-21-2022 nitroglyce rin 0.4 mg sublingual Tab 0.4 mg = 1 tab(s), SubLingual, q5min, PRN for chest pain, # 100 tab(s), Refills(s) 1, Pharmacy: [facility], 182, cm, 11/21/22 9:23:00 EDT, Height/Length Dosing, 153.6, kg, 11/21/22 9:23:00 EDT, Weight Dosing Start Date: 11/21/22 Status: Ordered Start: 11-20-2021 apply 1 dose transde rmal route once daily, then apply 1 dose transdermal route every twenty-four hours Nitroglycerin 0.4 MG/HR Transdermal Patch 24 Hour APPLY PATCH FOR 12 TO 14 HOURS DAILY, THEN REMOVE Quantity: 90 Refills: 3 Ordered: 20-Nov-2021 Wilder Lang MD Start : 20-Nov-2021 Active new start rosuvastatin calcium 10 mg oral tablet (20 sources) HMG-CoA Reductase Inhibitor Start: 09-07-2020 End: 01-21-2025 take 1 tablet by mouth at bedtime rosuvastatin (Crestor) 10 MG tablet Take 10 mg by mouth at bedtime 01/22/2024 01/21/2025 Active Ventolin HFA 90 mcg/inh Aerosol (4 sources) Start: 09-25-2020 take 2 puff(s) by inhalation every six hours for wheezing Ventolin HFA 90 mcg/inh Aerosol 2 puff(s), Inhalation, q6hr for wheezing, 1 EA, Refill(s) 1, [facility], 183, cm, 09/25/20 11:18:00 EDT, Height/Length Dosing, 143, kg, 09/25/20 11:18:00 EDT, Weight Dosing Start Date: 09/25/20 Status: Ordered Ventolin HFA 90 mcg/inh Aerosol-Adpt (6 sources) Start: 02-19-2024 take 2 puff(s) by inhalation every four hours for wheezing Ventolin HFA 90 mcg/inh Aerosol-Adpt 2 puff(s), Inhalation, q4hr for wheezing, 18 gram, Refill(s) 3, [facility], 182, cm, 02/19/24 9:08:00 EDT, Height/Length Dosing, 159.8, kg, 02/19/24 9:08:00 EDT, Weight Dosing Start Date: 02/19/24 Status: Ordered Start: 11-21-2022 take 2 puff(s) by in halation every four hours for wheezing Ventolin HFA 90 mcg/inh Aerosol-Adpt 2 puff(s), Inhalation, q4hr for wheezing, 18 gram, Refill(s) 3, [facility], 182, cm, 11/21/22 9:23:00 EDT, Height/Length Dosing, 153.6, kg, 11/21/22 9:23:00 EDT, Weight Dosing Start Date: 11/21/22 Status: Ordered Completed/Discontinued Medications Medication Drug Class(es) Dates Sig (Normalized) Sig (Original) acetaminophen 500 mg oral tablet (10 sources) take 1 tablet by mouth every four to six hours as needed Acetaminophen 500 MG Oral Tablet TAKE 1 TABLET EVERY 4 TO 6 HOURS NEEDED. Quantity: 0 Refills: 0 Ordered: 20-Nov-2021 DO Active aspirin 81 mg delayed release oral tablet (10 sources) Platelet Aggregation Inhibitor, Nonsteroidal Anti-inflammatory Drug take 1 tablet by mouth once daily Aspirin Adult Low Dose 81 MG Oral Tablet Delayed Release TAKE 1 TABLET DAILY. Quantity: 90 Refills: 3 Ordered: 26-Feb-2023 Wilder Lang MD Active hydroCHLOROthiazide 25 mg / triamterene 37.5 mg oral capsule (8 sources) Potassium-sparing Diuretic, Thiazide Diuretic Start: 01-19-2021 take 1 capsule by mouth once daily Triamterene-HCTZ 37.5-25 MG Oral Capsule take 1 capsule by mouth once daily Quantity: 90 Refills: 3 Ordered: 27-Dec-2022 Wilder Lang MD Start : 19-Jan-2021 Active potassium chloride 20 meq extended release oral tablet (18 sources) Start: 04-22-2023 take 1 tablet by mouth once daily potassium chloride 20 mEq ER Tab 20 mEq = 1 tab(s), Oral, Daily, # 90 tab(s), Refills(s) 4, Pharmacy: [facility], 182, cm, 02/20/23 10:23:00 EDT, Height/Length Dosing, 154.6, kg, 02/20/23 10:23:00 EDT, Weight Dosing Start Date: 04/22/23 Status: Ordered Start: 10-24-2022 take 1 tablet by anton th once daily potassium chloride 20 mEq ER Tab 20 mEq = 1 tab(s), Oral, Daily, # 90 tab(s), Refills(s) 1, Pharmacy: [facility], 182, cm, 10/24/22 11:03:00 EDT, Height/Length Dosing, 154.8, kg, 10/24/22 10:48:00 EDT, Weight Dosing Start Date: 10/24/22 Status: Ordered take 1 tablet by anton th once daily KLOR-CON 20 MEQ ER tablet Take 20 mEq by mouth Daily Active Problems Active Problems Problem Classification Problem Date Documented Date Episodic/Chronic Abdominal hernia (11 sources) Umbilical hernia; Translations: [Umbilical hernia without obstruction or gangrene] Onset: 10-24-2022 Episodic Aortic; peripheral; and visceral artery aneurysms (10 sources) Abdominal aortic aneurysm; Translations: [Abdominal aortic aneurysm without rupture] Onset: 11-08-2022 11-01-2022 Chronic Calculus of urinary tract (10 sources) History of calculus of kidney 09-11-2013 Episodic Chronic ulcer of skin (3 sources) Chronic ulcer of lower extremity; Translations: [Non-pressure chronic ulcer of unspecified part of right lower leg with fat layer exposed] 04-01-2024 Chronic Complication of device; implant or graft (12 sources) Arteriosclerosis of coronary artery bypass graft; Translations: [Coronary atherosclerosis of unspecified bypass graft] Onset: 01-26-2022 Chronic Coronary atherosclerosis and other heart disease (20 sources) Angina pectoris; Translations: [Other and unspecified angina pectoris] Onset: 10-24-2022 Chronic Disorders of lipid metabolism (20 sources) Hyperlipidemia; Translations: [Other and unspecified hyperlipidemia] Onset: 10-24-2022 Chronic Essential hypertension (20 sources) Hypertensive disorder; Translations: [Unspecified essential hypertension] Onset: 10-24-2022 Chronic Immunizations and screening for infectious disease (4 sources) Patient encounter status; Translations: [Other specified vaccination] Episodic Malaise and fatigue (12 sources) Fatigue; Translations: [Other malaise and fatigue] Onset: 01-26-2022 Episodic Nonspecific chest pain (6 sources) Chest pain; Translations: [Chest pain, unspecified] Onset: 01-26-2022 Episodic Osteoarthritis (10 sources) Osteoarthritis of knee 05-14-2014 Chronic Comment on above: RIGHT Other aftercare (1 source) Follow-up status; Translations: [Encounter for follow-up examination after completed treatment for conditions other than malignant neoplasm] Onset: 12-24-2022 Episodic Other circulatory disease (10 sources) Patient post angioplasty; Translations: [Other postprocedural status] Episodic Other connective tissue disease (2 sources) Synovitis and tenosynovitis; Translations: [Other synovitis and tenosynovitis, left ankle and foot] 04-01-2024 Episodic Other connective tissue disease (1 source) Enthesopathy of lower limb; Translations: [Other enthesopathy of left foot and ankle] 03-17-2024 Episodic Other diseases of veins and lymphatics (5 sources) Peripheral venous insufficiency; Translations: [Venous insufficiency (chronic) (peripheral)] Onset: 02-20-2023 Episodic Other diseases of veins and lymphatics (4 sources) Stasis dermatitis 02-20-2023 Episodic Other lower respiratory disease (10 sources) Dyspnea; Translations: [Other respiratory abnormalities] Episodic Other lower respiratory disease (2 sources) Dyspnea, unspecified; Translations: [Dyspnea, unspecified] Onset: 12-19-2021 Episodic Other lower respiratory disease (10 sources) Restrictive lung disease 11-23-2020 Episodic Other lower respiratory disease (1 source) Disorder of lung; Translations: [Other disorders of lung] Onset: 02-19-2024 Episodic Other non-traumatic joint disorders (1 source) Ankle joint pain; Translations: [Pain in left ankle and joints of left foot] Onset: 02-19-2024 Episodic Other non-traumatic joint disorders (3 sources) Ankle pain; Translations: [Pain in left ankle and joints of left foot] 02-19-2024 Episodic Other non-traumatic joint disorders (1 source) Sinus tarsi syndrome of left ankle; Translations: [Pain in left ankle and joints of left foot] 03-17-2024 Episodic Other nutritional; endocrine; and metabolic disorders (20 sources) Body mass index 40+ - severely obese; Translations: [Morbid obesity] Onset: 10-24-2022 Chronic Other nutritional; endocrine; and metabolic disorders (2 sources) Morbid obesity; Translations: [Morbid (severe) obesity due to excess calories] Onset: 08-21-2023 Chronic Other screening for suspected conditions (not mental disorders or infectious disease) (4 sources) Screening for malignant neoplasm of colon done; Translations: [Encounter for screening for malignant neoplasm of colon] Onset: 10-24-2022 Episodic Other skin disorders (2 sources) Senile hyperkeratosis; Translations: [Other seborrheic keratosis] Onset: 02-20-2023 Episodic Residual codes; unclassified (20 sources) Sleep apnea; Translations: [Unspecified sleep apnea] Onset: 10-24-2022 Chronic Residual codes; unclassified (1 source) FH: Cardiovascular disease; Translations: [Family history of ischemic heart disease and other diseases of the circulatory system] Onset: 10-24-2022 Episodic Residual codes; unclassified (4 sources) Family history of aneurysm of abdominal aorta 10-24-2022 Episodic Residual codes; unclassified (6 sources) Dependent edema 11-21-2022 Episodic Residual codes; unclassified (2 sources) Edema; Translations: [Edema, unspecified] Onset: 02-20-2023 Episodic Screening and history of mental health and substance abuse codes (10 sources) Ex-smoker; Translations: [Personal history of tobacco use] Episodic Comment on above: Quit: 09/2013 ( 2-3 P PD ); Skin and subcutaneous tissue infections (3 sources) Cellulitis of right lower limb; Translations: [Cellulitis of right lower limb] 04-01-2024 Episodic Sprains and strains (4 sources) Sprain of left ankle; Translations: [Sprain of unspecified ligament of left ankle, initial encounter] Onset: 08-21-2023 Episodic Substance-related disorders (5 sources) Nicotine dependence; Translations: [Nicotine dependence, unspecified, uncomplicated] Onset: 10-24-2022 Chronic Comment on above: Added secondary to d ocumentation in Social History. Unclassified (8 sources) Patient encounter status 10-24-2022 Unclassified (1 source) Abdominal aortic aneurysm, without rupture, unspecified; Translations: [Abdominal aortic aneurysm, without rupture, unspecified] Onset: 11-09-2022 Unclassified (3 sources) Seborrheic keratosis 02-20-2023 Past or Other Problems Problem Classification Problem Date Documented Da te Episodic/Chronic Unclassified (1 source) Abdominal aortic aneurysm, without rupture, unspecified; Translations: [Abdominal aortic aneurysm, without rupture, unspecified] Onset: 11-08-2022 Results Test Name Value Interpretation Reference Range Facility Ambulatory Visit Summaryon 0 02-19-2024 Ambulatory Visit Summary Ambulatory Visit Summary LIZZY KELLY JR :1965 Visit Date:02/19/2024 Ambulatory Visit Instructions Your Diagnosis Coronary arteriosclerosis HTN (hypertension) Dependent edema Stasis dermatitis Lung disease, restrictive Left ankle pain BMI 45.0-49.9, adult Class 3 severe obesity in adult Your Care Team Attending Physician - Lennie TRACEY CNP Primary Care Physician - Lennie TRACEY CNP This Is Your Medications List albuterol (Ventolin HFA 90 mcg/inh Aerosol-Adpt) Contact prescribing physician if questions or concerns aspirin (Aspirin 81 mg Tab-EC) furosemide (furosemide 20 mg Tab) lisinopril (lisinopril 10 mg Tab) nitroglycerin (nitroglycerin 0.4 mg sublingual Tab) potassium chloride (potassium chloride 20 mEq ER Tab) rosuvastatin (rosuvastatin 10 mg Tab) Procedures Performed Right kknee arthroscopy with partial medial meniscectomy, chondroplasy all 3 compartments (05/24/2014), cardiac stents, Excision of basal cell carcinoma, Nasal sinus procedure, Percutaneous transluminal coronary angioplasty, STONE BASKET FOR KIDNEY STONE. Discharge Vitals Heart Rate (Peripheral) 64 Respiratory Rate 17 Blood Pressure 130/73 Height 182 cm Height 72 in Weight 159.8 kg Weight 351.56 lb BMI 48.24 What to do next You Need to Schedule the Following Appointments Follow Up with Lennie TRACEY CNP When: In 6 months Where: [address] [place] [address]- Someone Will Contact You Regarding These Appointments [facility] External Ambulatory Referral, Podiatry, 02/19/24 9:38:00 EDT, Left ankle pain [facility] External Ambulatory Referral, Service not offered at [facility], Podiatry, Bryan Saunders, 02/19/24 9:39:00 EDT, Left ankle pain Medications What How Much When Instructions Unchanged albuterol (Ventolin HFA 90 mcg/ inh Aerosol-Adpt) 2 Puffs Inhalation Every 4 hours as needed for for wheezing Pickup at [facility] Unchanged aspirin (Aspirin 81 mg Tab-EC) 1 Tablets By Mouth Every day Contact prescribing physician if questions or concerns Unchanged furosemide (furosemide 20 mg Tab) 1 Tablets By Mouth Every day Contact prescribing physician if questions or concerns Unchanged lisinopril (lisinopril 10 mg Tab) 1 Tablets By Mouth Every day Contact prescribing physician if questions or concerns Unchanged nitroglycerin (nitroglycerin 0.4 mg sublingual Tab) 1 Tablets Sublingual Every 5 minutes as needed for for chest pain Contact prescribing physician if questions or concerns Unchanged potassium chloride (potassium chloride 20 mEq ER Tab) 1 Tablets By Mouth Every day Contact prescribing physician if questions or concerns Unchanged rosuvastatin (rosuvastatin 10 mg Tab) 1 Tablets By Mouth Every day Contact prescribing physician if questions or concerns Pharmacy Information [facility]: [address] [place] [address] [address] [place] [id number] [phone] Allergies No Known Allergies Problems Ongoing - Any problem that you are currently receiving treatment for. Coronary arteriosclerosis Dependent edema HTN (hypertension) Hyperlipidemia Left ankle pain Lung disease, restrictive Sleep apnea Stasis dermatitis Umbilical hernia Historical - Any problem that you are no longer receiving treatment for. AAA (abdominal aortic aneurysm) BMI 40.0-44.9, adult History of kidney stones Knee DJD Patient Survey You may receive a survey via text or e-mail asking about your office visit. Please share your experience with us by completing your survey. We appreciate your feedback and thank you for choosing us for your care. Sydnee [facility] Family Medicine Office/Clini c Noteon 02-19-2024 Family Medicine Office/Clinic Note Family Medicine Office/Clinic Note Chief Complaint HTN HPI Staff Patient is here for follow up on hypertension. How often are you checking your blood pressure? Not checking at home. What are your average readings? 151/101 at the dentist last wk. Do you exercise? no Are you compliant with your medications? Yes Do you have side effects from the medication? No Do you have any of the following symptoms? Chest Pain? No Palpitations? No SWAN/SOB? On occasion Headache? No Peripheral Edema? Bilat LE. Light Headedness? No Pt is c/o left ankle pain for the last 9 months. No acute injury. Was seen in Aug for the same issue, he was dx with an ankle sprain and was told it should it should heal in 6-8 wks. Pt wanted and xray at that time but it was not ordered. Refills - Albuterol Inhaler. Colon Cancer Screen - GI referral placed 10/21 CMP and Lipids - 2.21.24 Total -140 Trigs - 91 HDL - 49 LDL - 81 The standard range for ages 18 and older is >=18.5 and < 25 kg/m2. Your BMI today was above this range, this falls in the overweight to obese category and there are medical benefits to weight loss. We can offer counselling, referral, and/or medical support in addressing this problem. Your BMI and weight management will be followed at subsequent visits. History of Present Illness Lizzy Kelly is a 58-year-old male who is here today for a routine 6-month follow-up of chronic conditions including hypertension with dependent edema and stasis dermatitis, restrictive lung disease, hyperlipidemia, history of PERC, coronary angioplasty, and cardiac stents. He does follow with cardiology. He continues on aspirin, lisinopril, furosemide, potassium, and rosuvastatin. He does have an albuterol inhaler to use as needed. Weight is up 7 pounds compared to his 08/2023 visit. He is compliant with his medications, however, not checking his blood pressures at home. At the dentist recently, it was elevated at 151/101 mmHg. He denies any chest pain or heart palpitations. He does still have intermittent dyspnea on exertion. This is not new for him and still has the ever present bilateral lower extremity edema. Feeling well other than left ankle pain. I do have a cardiology consult note from 02/26/2023, NOSANTO Lang. Blood pressure at that visit was 108/58 mmHg. No medications or testing was ordered at that time. They recommended weight loss. In regards to his AAA that he had repaired last year in [facility], he is to follow up with vascular on a routine basis to monitor the presence of his aortic stent graft. His filler picker, Dr. Lang has recently retired, and he is scheduled to see a nurse practitioner next week. His procedures were performed by Dr. Hendrix. His last labs were done in 08/2023 and the filler picker is going to do them at next visit. His blood pressure remains well controlled, but it was elevated at the dentist's office where he had his tooth extraction. He has used his albuterol rescue inhaler 4 times in the last 6 months, which provides relief. He needs refills of it. He saw Dr. Mccallum for his left ankle pain, who diagnosed him with a sprain and informed him that it would resolve in 6 to 8 weeks, but it is still bothering him after 6 months. He reports no specific injury. Dr. Mccallum did not prescribe any medication or perform an x-ray. He cannot put weight on his ankle while sitting in his recliner. The pain is located under the lateral malleolus but is not unbearable. He does not normally experience pain while walking, but it is more noticeable when pressure is applied to the area. He reports no weakness. He tries to stretch as much as he can but has not tried wrapping, compression, ice, or ibuprofen. He prefers not to take any medication. He saw Dr. Saunders who cut the wart on his foot and applied acid on it. Review of Systems PHQ Score Initial Depression Screen Score: 0 SCORE All other systems are negative except as stated in the HPI. Physical Exam Vitals & Measurements HR: 64(Peripheral) RR: 17 BP: 130/73 SpO2: 96% HT: 72 in HT: 182 cm WT: 159.8 kg WT: 351.56 lb BMI: 48.24 General: The patient appears well, has normal self, in no acute distress, is obese, up 6 pounds compared to 08/2023 visit. Lungs: Clear to auscultation without crackles, wheezing, or rhonchi. Good air exchange. Respirations are easy and nonlabored. No conversational dyspnea. No audible wheeze. Heart: Regular rate and rhythm. No murmur or rub. Extremities: There is 1+ pitting edema in the bilateral lower extremities from the top of the foot up to proximal to the knee. Chronic brownish discoloration in both anterior lower shins noted. Left ankle has tenderness to palpation around the lateral malleolus with some fluctuance noted extending about 3 cm from the malleolus, worse towards the distal foot. Range of motion of the ankle is normal however. No ecchymosis. Neurologic: Grossly intact. Mental status: Normal. Assessment/Plan 1. Coronary arterioscle (more content not included)... Normal [facility] Comment on above: Result Comment: Elec tronically Signed By: Lennie TRACEY CNP\.br\Date and Time Signed: 02/19/24 12:59 EDT\.br\Electronically Co-Signed By: Darryn Bermudez\.br\Date and Time Co-Signed: 02/19/24 12:32 EDT Ambulatory Visit Summaryon 0 08-21-2023 Ambulatory Visit Summary LIZZY KELLY JR :1965 Visit Date:08/21/2023 Ambulatory Visit Instructions Your Diagnosis Left ankle sprain Coronary arteriosclerosis HTN (hypertension) Seborrheic keratoses Prostate cancer screening Screening cholesterol level BMI 45.0-49.9, adult Morbid obesity Your Care Team Attending Physician - Angella Mccallum DO Primary Care Physician - Lennie TRACEY CNP This Is Your Medications List Contact prescribing physician if questions or concerns albuterol (Ventolin HFA 90 mcg/inh Aerosol-Adpt) aspirin (Aspirin 81 mg Tab-EC) furosemide (furosemide 20 mg Tab) lisinopril (lisinopril 10 mg Tab) nitroglycerin (nitroglycerin 0.4 mg sublingual Tab) potassium chloride (potassium chloride 20 mEq ER Tab) rosuvastatin (rosuvastatin 10 mg Tab) Procedures Performed Right kknee arthroscopy with partial medial meniscectomy, chondroplasy all 3 compartments (05/24/2014), cardiac stents, Excision of basal cell carcinoma, Nasal sinus procedure, Percutaneous transluminal coronary angioplasty, STONE BASKET FOR KIDNEY STONE. Discharge Vitals Heart Rate (Peripheral) 60 Blood Pressure 133/79 Height 182 cm Height 72 in Weight 156.4 kg Weight 344.08 lb BMI 47.22 What to do next You Need to Schedule the Following Appointments Follow Up with Angella Mccallum DO, FAM When: In 6 months Comments: schedule a wellness exam Where: You Need to Complete the Following CBC w/ Auto Diff, Blood, Routine collect, 08/21/23, Order for future visit, Lab Collect, Coronary arteriosclerosis Invalid Interpretation Code Seborrheic keratoses [facility] [place] CBC w/ Auto Diffon 4 Basophil Absolute 0.0 E9/L Normal 0.0-0.2 [facility] [place] Comment on above: Performed By: #### 1 [id number], 3770505, [id number], 4301024, 5392777 #### [facility] Laboratory [address] [place] [address] Basophils/100 WBC (Bld) 0.7 % Normal 0.0-2.0 [facility] [place] Comment on above: Performed By: #### 1 [id number], 3021716, 14468644, 4352699, 7943284 #### [facility] [place] Laboratory [address] [place] [address] Eos Absolute 0.1 E9/L Normal 0.0-0.5 [facility] [place] Comment on above: Performed By: #### 1 [id number], 4236418, 55697240, 5483715, 2716236 #### [facility] Laboratory [address] [place] [address] Eosinophils/100 WBC (Bld) 2.4 % Normal 0.0-8.0 [facility] [place] Comment on above: Performed By: #### 1 [id number], 5106991, 21645964, 7502067, 8068828 #### [facility] Laboratory [address] [place] [address] Erythrocyte distribution width (RBC) [Ratio] 16.1 % High 10.9-14.2 [facility] [place] Comment on above: Performed By: #### 1 5506373, 5445521, 85079445, 9527824, 6881684 #### [facility] Laboratory [address] [place] [address] Hematocrit (Bld) [Volume fraction] 42.0 % Normal 37.7-49.0 [facility] [place] Comment on above: Performed By: #### 1 2538678, 8961208, 87457600, 9316222, 4751205 #### [facility] [place] Laboratory [address] [id number] Hemoglobin (Bld) [Mass/Vol] 13.5 g/dL Normal 13.5-17.5 [facility] [place] Comment on above: Performed By: #### 1 3502428, 1186821, 63131253, 9513003, 5090821 #### [facility] Laboratory [address] [place] [address] Lymph Absolute 1.6 E9/L Normal 1.0-4.0 [facility] Comment on above: Performed By: #### 1 [id number], 0529975, 12473603, 2833938, 1737139 #### [facility] [place] Laboratory [address] [place], [place] [id number] Lymphocytes/100 WBC (Bld) 31.8 % Normal 14.0-50.0 [facility] [place] Comment on above: Performed By: #### 1 5795326, 2385462, 82361911, 1713805, 7418052 #### [facility] Laboratory [address] [id number] MCH (RBC) [Entitic mass] 27.1 pg Normal 27.0-34.0 [facility] [place] Comment on above: Performed By: #### 1 0358027, 1042779, 16186163, 9169634, 2036285 #### [facility] Laboratory [address] [place] [address] MCHC (RBC) [Mass/Vol] 32.4 g/dL Normal 31.4-36.0 [facility] Comment on above: Performed By: #### 1 9120368, 0867071, 24169907, 5451380, 0805279 #### [facility] Laboratory [address] [place] [address] MCV (RBC) [Entitic vol] 83.9 fL Normal 80.0-100.0 [facility] [place] Comment on above: Performed By: #### 1 8391433, 1580821, 88364619, 5549490, 7705774 #### [facility] [place] Laboratory [address] [place] [address] Bamberg Absolute 0.5 E9/L Normal 0.2-1.0 [facility] Comment on above: Performed By: #### 1 8378053, 2214200, 50678560, 2326153, 6891802 #### [facility] [place] Laboratory [address] [place] [address] Monocytes/100 WBC (Bld) 10.2 % Normal 4.0-14.0 [facility] [place] Comment on above: Performed By: #### 1 5883703, 1483795, 79452745, 6285445, 9863003 #### [facility] [place] Laboratory [address] [place] [address] Neutro Absolute 2.8 E9/L Normal 2.0-7.5 [facility] Comment on above: Performed By: #### 1 5343868, 4886547, 36738884, 2317497, 4294227 #### [facility] [place] Laboratory [address] [place] [address] Neutro Auto 54.9 % Normal 36.0-75.0 [facility] [place] Comment on above: Performed By: #### 1 0414127, 8625184, 86428633, 1800971, 6436482 #### [facility] [place] Laboratory [address] [place] [address] Platelet 163.0 E9/L Normal 150.0-500.0 [facility] [place] Comment on above: Performed By: #### 1 1413106, 7453899, 64468559, 5303323, 3198135 #### [facility] Laboratory [address] [place] [address] Platelet mean volume (Bld) [Entitic vol] 9.1 fL Normal 6.4-10.8 [facility] Comment on above: Performed By: #### 1 0306914, 2569833, 11642458, 9710889, 6507479 #### [facility] Laboratory [address] [place] [address] RBC 5.0 E12/L Normal 4.3-5.9 [facility] Comment on above: Performed By: #### 1 2776256, 8426278, 53169624, 5804009, 0947751 #### [facility] Laboratory [address] [place] [address] WBC 5.1 E9/L Normal 4.0-11.0 [facility] [place] Comment on above: Performed By: #### 1 7765874, 1669405, 45510274, 4000442, 5939748 #### [facility] Laboratory [address] [place] [address] CHEMISTRYOrdered By: SYSTEM SYSTEM on 08-21-2023 Albumin [Mass/Vol] 4.1 g/dL Normal 3.3 - 5.0 gm/dL [facility] Chem Albumin/Globulin [Mass ratio] 1.3 {ratio} Normal 1.1 - 2.2 [facility] Alk Phos 119 [iU]/d High 21 - 98 Int._Unit/L [facility] Chem ALT 21 [iU]/d Normal 6 - 46 Int._Unit/L [facility] Chem Anion gap [Moles/Vol] 11 mmol/L Normal 6 - 16 mEq/L R emisol Chem AST 20 [iU]/d Normal 5 - 43 Int._Unit/L [facility] Bili Total 0.6 mg/dL Normal 0.0 - 1.1 mg/dL [facility] Calcium [Mass/Vol] 9.3 mg/dL Normal 8.9 - 11. 1 mg/dL [facility] Chloride [Moles/Vol] 105 mmol/L Normal 101 - 1 11 mmol/L [facility] Cholesterol [Mass/Vol] 140 mg/dL Normal 120 - 200 mg/dL [facility] Cholesterol in HDL [Mass/Vol] 49 mg/dL Invalid Interpretation Code [facility] Comment on above: Result Comment: '>= 60 LOW RISK' '<= 40 HIGH RISK' Cholesterol in LDL [Mass/Vol] 81 mg/dL Normal <=129mg/dL [facility] Cholesterol in VLDL [Mass/Vol] 18 mg/dL Normal 7 - 40 mg/dL [facility] CO2 [Moles/Vol] 24 mmol/L Normal 21 - 31 mmol/L [facility] Creatinine [Mass/Vol] 0.9 mg/dL Normal 0.5 - 1.3 mg/dL [facility] eGFR 98 mL/min/1.73 m2 Normal >=59mL/min /1. 73 m2 [facility] Globulin (S) [Mass/Vol] 3.1 g/dL Normal 1.4 - 4.0 gm/dL [facility] Glucose [Mass/Vol] 92 mg/dL Normal 55 - 199 mg/dL [facility] Potassium [Moles/Vol] 4.2 mmol/L Normal 3.5 - 5.3 mmol/L [facility] Protein [Mass/Vol] 7.2 g/dL Normal 6.0 - 7.8 gm/dL [facility] Chem PSA Scrn Tot. 1.6 ng/mL Normal 0.1 - 3.5 ng/mL [facility] Comment on above: Interpretive Data: T he concentration of PSA determined by different manufacturers can vary due to differences in assay methods and reagent specificity. Values obtained from different assay methods cannot be used interchangeably. The methodology used for this result was chemiluminescence using [employer]s Access Hybritech PSA reagent. Sodium [Moles/Vol] 136 mmol/L Normal 135 - 145 mmol/L [facility] Triglyceride [Mass/Vol] 91 mg/dL Normal <=149mg/dL [facility] Urea nitrogen [Mass/Vol] 19 mg/dL Normal 5 - 21 mg/dL [facility] Urea nitrogen/Creatinine [Mass ratio] 21 mg/mg High 10 - 20 [facility] CMPon 08-21-2023 Albumin [Mass/Vol] 4.1 g/dL Normal 3.3-5.0 [facility] Comment on above: Performed By: #### 1 8828775, 3988264, 47046348, 6847369, 5739107 #### [facility] Laboratory [address] [place] [address] Albumin/Globulin [Mass ratio] 1.3 {ratio} Normal 1.1-2.2 [facility] Comment on above: Performed By: #### 1 0844103, 8832553, 66754407, 7644456, 0538658 #### [facility] Laboratory [address] [place] [address] Alk Phos 119 Int._Unit/L High 21-98 [facility] Comment on above: Performed By: #### 1 7418322, 3254830, 08891657, 1384804, 2638712 #### [facility] Laboratory [address] [place] [address] ALT 21 Int._Unit/L Normal 6-46 [facility] Comment on above: Performed By: #### 1 5667045, 1218884, 22224605, 9949805, 9942877 #### [facility] Laboratory [address] [id number] Anion gap [Moles/Vol] 11 mmol/L Normal 6-16 [facility] Comment on above: Performed By: #### 1 7220990, 0667017, 00400785, 2430830, 5275890 #### [facility] Laboratory [address] [place] [address] AST 20 Int._Unit/L Normal 5-43 [facility] Comment on above: Performed By: #### 1 0823016, 7507508, 91046915, 7704072, 3325192 #### [facility] Laboratory [address] [place] [address] Bili Total 0.6 mg/dL Normal 0.0-1.1 [facility] Comment on above: Performed By: #### 1 6383991, 2133613, 39195498, 2002294, 8864738 #### [facility] Laboratory [address] [place] [address] BUN/Creat Ratio 21 No Units High 10-20 [facility] Comment on above: Performed By: #### 1 1411326, 6641585, 20150429, 4187105, 0053083 #### [facility] Laboratory [address] [place] [address] Calcium [Mass/Vol] 9.3 mg/dL Normal 8.9-11.1 [facility] Comment on above: Performed By: #### 1 1586010, 3573556, 99977986, 8368739, 4951356 #### [facility] Laboratory [address] [place] [address] Chloride [Moles/Vol] 105 mmol/L Normal 101-111 [facility] Comment on above: Performed By: #### 1 8118902, 0446108, 14156399, 3867156, 1582983 #### [facility] Laboratory [address] [place] [address] CO2 [Moles/Vol] 24 mmol/L Normal 21-31 [facility] Comment on above: Performed By: #### 1 9040424, 7794047, 56932592, 8355741, 3802134 #### [facility] Laboratory [address] [place] [address] Creatinine [Mass/Vol] 0.9 mg/dL Normal 0.5-1.3 [facility] Comment on above: Performed By: #### 1 1512535, 2173982, 54898249, 1488272, 0136196 #### [facility] Laboratory [address] [place] [address] Globulin (S) [Mass/Vol] 3.1 g/dL Normal 1.4-4.0 [facility] Comment on above: Performed By: #### 1 1261053, 8418256, 66780691, 9658601, 5581600 #### [facility] Laboratory [address] [place] [address] Glucose [Mass/Vol] 92 mg/dL Normal 55-199 [facility] Comment on above: Performed By: #### 1 7825352, 3476393, 76932875, 1739982, 4445901 #### [facility] Laboratory [address] [place] [address] Potassium [Moles/Vol] 4.2 mmol/L Normal 3.5-5.3 [facility] Comment on above: Performed By: #### 1 1113336, 1624345, 47138651, 6223397, 8753514 #### [facility] Laboratory [address] [place] [address] Protein [Mass/Vol] 7.2 g/dL Normal 6.0-7.8 [facility] Comment on above: Performed By: #### 1 8167985, 5326771, 64590895, 4787929, 8942498 #### [facility] Laboratory [address] [place] [address] Sodium [Moles/Vol] 136 mmol/L Normal 135-145 [facility] Comment on above: Performed By: #### 1 3943674, 0353452, 38496155, 2873028, 9656251 #### [facility] Laboratory [address] [place] [address] Urea nitrogen [Mass/Vol] 19 mg/dL Normal 5-21 [facility] Comment on above: Performed By: #### 1 5380070, 0489507, 99470054, 1775266, 0297164 #### [facility] Laboratory [address] [place] [address] Family Medicine Office/Clini c Noteon 08-21-2023 Family Medicine Office/Clinic Note Chief Complaint 6 mo. f/u and left ankle issue HPI Staff 6 mo. f/u Pt. states left ankle is bothering him, hurt it about 2 weeks ago. Patient is here for follow up on hypertension. How often are you checking your blood pressure? not checking What are your average readings? n/a Do you exercise? no Are you compliant with your medications? yes Do you have side effects from the medication? No Do you have any of the following symptoms? Chest Pain? No Palpitations? No SWAN/SOB? No Headache? No Peripheral Edema? No Light Headedness? No Colon cancer screening - declines right now, will have it done at some point The standard range for ages 18 and older is >=18.5 and < 25 kg/m2. Your BMI today was above this range, this falls in the overweight to obese category and there are medical benefits to weight loss. We can offer counselling, referral, and/or medical support in addressing this problem. Your BMI and weight management will be followed at subsequent visits. History of Present Illness The patient presents for evaluation of multiple medical concerns. A few weeks ago, he injured his ankle, resulting in missed workdays. The outer side of the ankle remains tender and shows signs of bruising. Additionally, the back side of the ankle is also tender. He experiences persistent ankle swelling. He suspects the injury occurred while getting on and off a toe motor. He is unsure whether the twist happened at home or during the toe motor activity. Although the discomfort didn?t bother him immediately after work, he woke up with tenderness the next day. He does not wear support hose and wears socks. Initially, he used an Ariel bandage for 4 to 5 days and took 2 days off work due to significant difficulty in walking. He takes potassium and Lasix. He has been dealing with a ventral hernia for quite some time, and the pain intensifies during activities that involve lifting. This pain has made it challenging for him to engage in regular exercise. He weighed 20 pounds less as he wanted to lose weight the last time, he wanted his hernia repaired. He has a Cologuard at home. He had plans to address his hernia and undergo a colonoscopy last year. He underwent an aneurysm screening, but unfortunately, subsequent procedures were canceled. He was supposed to come in for a follow-up for his aneurysm due to his history of an abdominal aortic aneurysm last year. However, he has not yet consulted with a specialist. He had blood work for his aneurysm in 10/2022. His aneurysm is under control. He underwent stent placement, which has collapsed. He has a scar on their back resulting from skin cancer removal. During the procedure, 22 elida and 7 internal stitches were used to close the wound. He states the wound has healed but then it starts bleeding again. Initially, the patient applied Aquaphor and was prescribed antibiotics. However, it leads to a subsequent infection and he was prescribed with another antibiotic again which partially resolved the issue. Despite this improvement, the infection recurred. Currently, he experiences seepage from the wound, and the area remains swollen and red due to the infection. He had 1 kidney stone 15 years ago which coincided with heavy coffee consumption. He visited the hospital where an x-ray confirmed the presence of a kidney stone and was discharged. He received an intravenous medication which made him rest. He states morphine gives him migraines. He could not tolerate Percocet or [place] as caused him insomnia. Instead, he was prescribed Tylenol No. 3 with Codeine and took it every 15 minutes to alleviate pain. Unfortunately, as its effects wore off, the pain intensified. He used to work 20 hours a day. He used to chain smoke 4 packs of cigarettes a day for 35 years. He also used to consumed a significant amount of coffee and has now discontinued his excessive coffee intake. He denies any family history of colon cancer or colon polyps. His father had 7 kidney stones. None of his brothers have skin cancer. His mother had skin cancer. Review of Systems PHQ Score Initial Depression Screen Score: 0 SCORE Physical Exam Vitals & Measurements HR: 60(Peripheral) BP: 133/79 SpO2: 93% HT: 72 in HT: 182 cm WT: 156.4 kg WT: 344.08 lb BMI: 47.22 mild edema left lateral ankle and mild bruising General: well developed, well nourished, in no acute distress Mental Status: alert and oriented times three, normal mood and affect Psych: mood appropriate Neurologic: grossly normal Throat: midline Nose: no drainage Lungs: normal respiratory effort ,no cough Derm: no rashes visualized, good color Muscle Skeletal: normal motion extremities Assessment/Plan 1. Left ankle sprain (S93.402A: Sprain of unspecified ligament of left ankle, initial encounter) The patient is currently experiencing ankle pain due to a pulled tendon. The expected healing time for this conditi (more content not included)... Normal [facility] Comment on above: Result Comment: Elec tronically Signed By: Angella Mccallum DO\.br\Date and Time Signed: 08/21/23 13:24 EST\.br\Electronically Co-Signed By: Coni Suarez\.br\Date and Time Co-Signed: 08/21/23 13:19 EST HEMATOLOGYOrdered By: SYSTEM SYSTEM on 08-21-2023 Basophil Absolute 0.0 E9/L Normal 0.0 - 0.2 E9/L Remisol Heme Basophils/100 WBC (Bld) 0.7 % Normal 0.0 - 2.0 % Remisol Heme Eos Absolute 0.1 E9/L Normal 0.0 - 0.5 E9/L [facility] Heme Eosinophils/100 WBC (Bld) 2.4 % Normal 0.0 - 8.0 % [facility] Heme Erythrocyte distribution width (RBC) [Ratio] 16.1 % High 10.9 - 14.2 % [facility] Hem[facility] Hematocrit (Bld) [Volume fraction] 42.0 % Normal 37.7 - 49.0 % [facility]e Hemoglobin (Bld) [Mass/Vol] 13.5 g/dL Normal 13.5 - 17.5 gm/dL [facility] Lymph Absolute 1.6 E9/L Normal 1.0 - 4.0 E9/L [facility]e Lymphocytes/100 WBC (Bld) 31.8 % Normal 14.0 - 50.0 % [facility] Heme MCH (RBC) [Entitic mass] 27.1 pg Normal 27.0 - 34.0 pg Rem[facility] Heme MCHC (RBC) [Mass/Vol] 32.4 g/dL Normal 31.4 - 36.0 gm/dL [facility] Heme MCV (RBC) [Entitic vol] 83.9 fL Normal 80.0 - 100.0 fL [facility] Heme [place] Absolute 0.5 E9/L Normal 0.2 - 1.0 E9/L [facility] Heme Monocytes/100 WBC (Bld) 10.2 % Normal 4.0 - 14.0 % [facility]e Neutro Absolute 2.8 E9/L Normal 2.0 - 7.5 E9/L [facility] Heme Neutro Auto 54.9 % Normal 36.0 - 75.0 % Remisol He me Platelet 163.0 E9/L Normal 150.0 - 500.0 E9/L [facility] Heme Platelet mean volume (Bld) [Entitic vol] 9.1 fL Normal 6.4 - 10.8 fL [facility] Heme RBC 5.0 E12/L Normal 4.3 - 5.9 E12/L [facility] WBC 5.1 E9/L Normal 4.0 - 11.0 E9/L [facility] Lipid Panelon 08-21-2023 Cholesterol [Mass/Vol] 140 mg/dL Normal 120-200 [facility] Comment on above: Performed By: #### 1 [id number], 3459248, 01686970, 7037915, 8484211 #### [facility] Laboratory [address] [place] [address] Cholesterol in HDL [Mass/Vol] 49 mg/dL Invalid Interpretation Code [facility] Comment on above: Result Comment: '>= 60 LOW RISK' '<= 40 HIGH RISK' Performed By: #### 1 4272400, 8849059, 29951572, 4807261, 6047482 #### [facility] Laboratory [address] [place] [address] Cholesterol in LDL [Mass/Vol] 81 mg/dL Normal <=129 [facility] Comment on above: Performed By: #### 1 6226106, 8926415, 88990758, 5969254, 4805959 #### [facility] Laboratory [address] [place] [address] Cholesterol in VLDL [Mass/Vol] 18 mg/dL Normal 7-40 [facility] Comment on above: Performed By: #### 1 [id number], 4837480, 83503941, 9771001, 6716396 #### [facility] Laboratory [address] [place] [address] Triglyceride [Mass/Vol] 91 mg/dL Normal <=149 [facility] Comment on above: Performed By: #### 1 4073861, 8394468, 12630655, 6424763, 6315731 #### [facility] Laboratory [address] [place] [address] PSA Screen, Totalon 08-21-19 24 PSA Scrn Tot. 1.6 ng/mL Normal 0.1-3.5 [facility] Comment on above: Result Comment: The concentration of PSA determined by different manufacturers can vary due to differences in assay methods and reagent specificity. Values obtained from different assay methods cannot be used interchangeably. The methodology used for this result was chemiluminescence using [employer] PSA reagent. Performed By: #### 1 [id number], 5693373, 62120630, 7839163, 7141377 #### [facility] Laboratory [address] [place] [address] Patient Educationon 08-21-19 Patient Education Cardiovascular Angina Angina is discomfort in the chest, neck, arm, jaw, or back. The discomfort is caused by a lack of blood in the middle layer of the heart wall (myocardium). There are four types of angina: ? Stable angina. This is triggered by vigorous activity or exercise. It goes away when you rest or take medicines that treat angina. This is diagnosed if you have had the symptom for more than 2 months. ? Unstable angina. This is a warning sign and can lead to a heart attack. This is a medical emergency. Symptoms come at rest and last a long time. ? Microvascular angina. This affects the small coronary arteries. Symptoms include chest pain, feeling tired, and being short of breath. The symptoms can last a long time or short time. ? Prinzmetal or variant angina. This is caused by a spasm of the arteries that go to your heart. What are the causes? This condition is usually caused by atherosclerosis. This is the buildup of fat and cholesterol (plaque) in your arteries. The plaque may narrow or block the artery. Other causes of angina include: ? Sudden spasms of the muscles of the arteries in the heart. ? Small artery disease (microvascular dysfunction). ? Problems with any of your heart valves. ? A tear in an artery in your heart (coronary artery dissection). ? Weakness of the heart muscle (cardiomyopathy). What increases the risk? You are more likely to develop this condition if you have: ? High cholesterol. ? High blood pressure. ? Diabetes. ? A family history of heart disease. ? A sedentary lifestyle, or a lifestyle in which you do not exercise enough. ? Depression. ? Had radiation treatment to the left side of your chest. Other risk factors include: ? Using tobacco. ? Being obese. ? Eating a diet high in saturated fats. ? Being exposed to high stress or triggers of stress. ? Using drugs, such as cocaine. Women have a greater risk for angina if they: ? Are older than age 55. ? Have gone through menopause. What are the signs or symptoms? Common symptoms of this condition in both men and women may include: ? Chest pain, which may: ? Feel like a crushing or squeezing in the chest, or a tightness, pressure, fullness, or heaviness in the chest. ? Last for more than a few minutes, or stop and come back over a few minutes. ? Pain in the neck, arm, jaw, or back. ? Unexplained heartburn or indigestion. ? Shortness of breath. ? Nausea. ? Sudden cold sweats. Women and people with diabetes may have unusual (atypical) symptoms, such as: ? Fatigue. ? Unexplained feelings of nervousness or anxiety. ? Unexplained weakness. ? Dizziness or fainting. How is this diagnosed? This condition may be diagnosed based on: ? Your symptoms and medical history. ? Electrocardiogram (ECG) to measure the electrical activity in your heart. ? Blood tests. ? Stress test to look for signs of blockage when your heart is stressed. ? CT angiogram to examine your heart and the blood flow to it. ? Coronary angiogram to check for arterial blockage. ? Echocardiogram (ultrasound) to assess the strength of your heartbeat. How is this treated? Angina may be treated with: ? Medicines to: ? Prevent blood clots and heart attack. ? Relax blood vessels and improve blood flow to the heart. ? Reduce blood pressure, improve heart pumping, and relax blood vessels spasms. ? Reduce cholesterol and help treat atherosclerosis. ? A procedure to widen a narrowed or blocked coronary artery (angioplasty). A mesh tube (stent) may be placed in a coronary artery to keep it open. ? Surgery to allow blood to go around a blocked artery (coronary artery bypass surgery). Follow these instructions at home: Medicines ? Take vvzb-ssv-owpqmdk and prescription medicines only as told by your health care provider. ? Do not take the following medicines unless your health care provider approves: ? NSAIDs, such as ibuprofen or naproxen. ? Vitamin supplements that contain vitamin A, vitamin E, or both. ? Hormone replacement therapy that contains estrogen with or without progestin. Eating and drinking ? Eat a heart-healthy diet. This includes plenty of fresh fruits and vegetables, whole grains, low-fat (lean) protein, and low-fat dairy products. ? Follow instructions from your health care provider about eating or drinking restrictions. Activity ? Follow an exercise program approved by your health care provider. ? Consider joining a cardiac rehabilitation program. ? Take a break when you feel fatigued. Plan rest periods in your daily activities. Lifestyle ? Do not use any products that contain nicotine or tobacco. These products include cigarettes, chewing tobacco, and vaping devices, such as e-cigarettes. If you need help quitting, ask your health care provider. ? If your health care provider says you can dri (more content not included)... Normal [facility] eGFRon 08-21-2023 eGFR 98 mL/min/1.73 m2 Normal >=59 [facility] Comment on above: Order Comment: Order added by Discern Expert. 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.05) (I25.810) Status post angioplasty (V45.89) (Z98.62) Hypertension (401.9) (I10) Hyperlipidemia (272.4) (E78.5) Morbid obesity with BMI of 45.0-49.9, adult (278.01,V85.42) (E66.01,Z68.42) Former smoker (V15.82) (Z87.891) Quit: 09/2013 ( 2-3 PPD ) Orders Angina pectoris, Chest pain Renew: Nitroglycerin 0.4 MG Sublingual Tablet Sublingual; PLACE 1 TABLET UNDER THE TONGUE EVERY 5 MINUTES FOR UP TO 3 DOSES NEEDED FOR CHEST PAIN.CALL 911 IF PAIN PERSISTS Atherosclerosis of coronary 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 without angina pectoris, Status post angioplasty Renew: Aspirin Adult Low Dose 81 MG Oral Tablet Delayed Release; TAKE 1 TABLET DAILY Hyperlipidemia Renew: Rosuvastatin Calcium 10 MG Oral Tablet; TAKE 1 TABLET AT BEDTIME Morbid obesity with BMI of 45.0-49.9, adult Healthy Weight Tips; Status:Complete - Retrospective Authorization; Done: [id number] Some eating tips that can help you lose weight.; Status:Complete - Retrospective Authorization; Done: [id number] SocHx: Former smoker Tobacco Use Screening; Status:Complete; Done: [id number] Patient Instructions Please bring all medicines, vitamins, and herbal supplements with you when you come to the office. Prescriptions will not be filled unless you are compliant with your follow up appointments or have a follow up appointment scheduled as per instruction of your physician. Refills should be requested at the time of your visit. Follow up in 1 year. Chief Complaint LIZZY KELLY is being seen for an annual follow-up of. History of Present Illness Patient returns in follow-up of problems as noted. In interim he is done well from a cardiology standpoint but he was found to have a large abdominal aortic aneurysm and he underwent percutaneous intervention in [place]. Details are not all available. Nonetheless he states he was recently evaluated and given the all clear and because of this he believes the matter is behind him. The concept of device migration was discussed with him I suggested that he maintain follow-up with vascular surgery for surveillance of his aortic stent graft. In regards to his coronary disease he is doing well. He has none of the symptoms that preceded his diagnosis of coronary disease and subsequent angioplasty. Control and management of risk factors hyperlipidemia and hypertension is reviewed and control is acceptable. We did advocate the merits of diet and weight loss and he understands our recommendation. Surgical History Problems History of Abdominal aortic aneurysm repair History of Excision of basal cell carcinoma ON BACK History of Knee surgery History of Percutaneous transluminal coronary angioplasty History of Sinus surgery Current Meds Medication NameInstruction Acetaminophen 500 MG Oral TabletTAKE 1 TABLET EVERY 4 TO 6 HOURS NEEDED. Albuterol Sulfate HFA 108 (90 Base) MCG/ACT Inhalation Aerosol SolutionINHALE 1 TO 2 PUFFS EVERY 4 TO 6 HOURS NEEDED. Aspirin Adult Low Dose 81 MG Oral Tablet Delayed ReleaseTAKE 1 TABLET DAILY. Furosemide 20 MG Oral TabletTAKE 1 TABLET DAILY. Lisinopril 10 MG Oral TabletTAKE 1 TABLET BY MOUTH ONCE DAILY Nitroglycerin 0.4 [address] Tablet SublingualPL[address] 1 TABLET UNDER THE TONGUE EVERY 5 MINUTES FOR UP TO 3 DOSES NEEDED FOR CHEST PAIN.CALL 911 IF PAIN PERSISTS. Potassium Chloride ER 20 MEQ Oral Tablet Extended ReleaseTake 1 tablet daily Rosuvastatin Calcium 10 MG Oral TabletTAKE 1 TABLET AT BEDTIME Allergies Medication No Known Drug Allergies Recorded By: Ariana Macias; 10/26/2021 3:30:11 PM Social History Problems Caffeine use (V49.89) (Z78.9) 1 CUP COFFEE OCCASIONALLY - 1 CAN SODA OCCASIONALLY Former smoker (V15.82) (Z87.891) Quit: 09/2013 ( 2-3 PPD ) No illicit drug use Rarely consumes alcohol (V49.89) (Z78.9) Review of Systems Constitutional: not feeling tired. Eyes: no eyesight problems. ENT: no hearing loss and no nosebleeds. Cardiovascular: no intermittent leg claudication and as noted in HPI. Respiratory: no chronic cough and no shortness of breath. Gastrointestinal: no change in bowel habits and no blood in stools. Genitourinary: no urinary frequency and no hematuria. Skin: no skin rashes. Neurological: no seizures and no frequent falls. Psychiatric: no depression and not suicidal. All other systems have been reviewed and are negative for complaint. Vitals Vital Signs Recorded: [id number] 10:27AM Heart Rate66, R Radial [id number], LUE, Sitting Nkkmobdoi19, LUE, Sitting Height6 ft Zaogji652 lb BMI Jovoivtjum97.98 kg/m2 BSA Calculated2.67 Tobacco Useb) No PHQ-2 #1. Over the last 2 weeks have you felt down, depressed or hopeless? (If yes, answer PHQ-9 below)No PHQ-2 #2. Over the last 2 weeks have you felt little interest or pleasure in doing things? (If yes, answer PHQ (more content not included)... [facility] Scre[facility].on 023 Adult depression screening assessment No [facility] [address] DO Work Phone: Fall risk assessment c) Not medically indicated [facility] [address] DO Work Phone: Tobacco use status [facility] b) No [facility] [address] DO Work Phone: BASIC METABOLIC PANELon 05- Anion gap [Moles/Vol] 10 mmol/L Normal 7-20 [facility] Comment on above: Performed By: #### L [id number] ####[facility] (BEAKER)[address] [place] [address] Calcium [Mass/Vol] 8.4 mg/dL Low 8.6-10.3 [facility] Comment on above: Performed By: #### L [id number] ####[facility] ([facility])[address] [place] [address] Chloride [Moles/Vol] 106 mmol/L Normal 98-107 [facility] Comment on above: Performed By: #### L [id number] ####[facility] ([facility])[address] [place] [address] CO2 [Moles/Vol] 23 mmol/L Normal 21-31 [facility] Comment on above: Performed By: #### L [id number] ####[facility] ([facility])[address] [place] [address] Creatinine [Mass/Vol] 0.84 mg/dL Normal 0.70-1.30 [facility] Comment on above: Performed By: #### L [id number] ####[facility] ([facility])[address] [place] [address] GLOMERULAR FILTRATION RATE ML/MIN/1.73 SQ M.PREDICTED 100.5 mL/min/1.73m*2 Normal >60.0 [facility] Comment on above: Result Comment: The [facility]???s estimated glomerular filtration rate (eGFR) will no longer include consideration of race in its calculation. The National Kidney Foundation???s eGFR Task Force developed new recommendations for the estimation of the glomerular filtration rate in the [place] They recommend immediate implementation of the new equation refit without the race variable in all laboratories because the calculation does not include race. In addition to not including race in the calculation and reporting, it included diversity in its development, and has acceptable performance characteristics and potential consequences that do not disproportionately affect any one group of individuals. Performed By: #### L [id number] ####[facility] ([facility])[address] [place] [address] Glucose [Mass/Vol] 142 mg/dL High 70-100 [facility] Comment on above: Performed By: #### L [id number] ####[facility] ([facility])[address] [place] [address] Potassium [Moles/Vol] 4.4 mmol/L Normal 3.5-5.1 [facility] Comment on above: Performed By: #### L [id number] ####[facility] ([facility])[address] [place] [address] Sodium [Moles/Vol] 135 mmol/L Low 136-145 [facility] Comment on above: Performed By: #### L [id number] ####[facility] ([facility])[address] [place] [address] Urea nitrogen [Mass/Vol] 16 mg/dL Normal 7-25 [facility] Comment on above: Performed By: #### L [id number] ####[facility] ([facility]ER)[address] [place] [address] UREA NITROGEN/CREATININE (MASS RATIO) IN SER/PLAS 19.0 Normal [facility] Comment on above: Performed By: #### L [id number] ####[facility] ([facility])[address] [place] [address] CBCon 11-10-2022 Erythrocyte distribution width (RBC) [Ratio] 14.5 % Normal 11.5-15.0 [facility] Comment on above: Performed By: #### L [id number] ####[facility] ([facility]ER)[address] [place] [address] ERYTHROCYTE MEAN CORPUSCULAR HEMOGLOBIN CONCENTRATION (G/DL) BY AUTOMATED 31.3 g/dL Low 32.0-35.0 [facility] Comment on above: Performed By: #### L [id number] ####[facility] (BEAKER)[address] [place] [address] Hematocrit (Bld) [Volume fraction] 38.7 % Low 39.0-55.0 [facility] Comment on above: Performed By: #### L [id number] ####[facility] (BEAKER)[address] [place] [address] Hemoglobin (Bld) [Mass/Vol] 12.1 g/dL Low 13.0-17.0 [facility] Comment on above: Performed By: #### L [id number] ####[facility] ([facility])[address] [place] [address] MCH (RBC) [Entitic mass] 27.0 pg Normal 27.0-33.0 [facility] Comment on above: Performed By: #### L [id number] ####[facility] ([facility])[address] [place] [address] MCV (RBC) [Entitic vol] 86.4 fL Normal 82.0-98.0 [facility] Comment on above: Performed By: #### L [id number] ####[facility] ([facility])[address] [place] [address] PLATELETS (10*3/UL) IN BLOOD AUTOMATED COUNT 161 10*3/uL Normal 150-400 [facility] Comment on above: Performed By: #### L [id number] ####[facility] ([facility])[address] [place] [address] RBC (Bld) [#/Vol] 4.48 10*6/uL Normal 4.20-5.70 [facility] Comment on above: Performed By: #### L [id number] ####[facility] ([facility])[address] [place] [address] WBC (Bld) [#/Vol] 10.35 10*3/uL Normal 4.00-10.60 [facility] Comment on above: Performed By: #### L [id number] ####[facility] ([facility])[address] [place] [address] DSon 11-10-2022 DS Admission Admitted 11/08/2022 for Abdominal Aortic Aneurysm Discharge Diagnosis AAA repair Discharge Disposition Home or Self Care Discharge Medications Your medication list CONTINUE taking these medications Instructions Last Dose Given Next Dose Due albuterol 90 mcg/actuation inhaler aspirin 81 mg EC tablet furosemide 20 mg tablet Commonly known as: Lasix lisinopril 10 mg tablet nitroglycerin 0.4 mg SL tablet Commonly known as: Nitrostat potassium chloride CR 20 mEq ER tablet Commonly known as: Klor-Con M20 rosuvastatin 10 mg tablet Commonly known as: Crestor Activity Normal activity as tolerated, no driving until seen for follow up May shower after dressing removed Diet Continue on the same type of diet and foods as you were eating before your admission. Drink plenty of water. Allergies Patient has no known allergies. Hospital Course Lizzy Kelly Jr. is a 57 y.o. male presenting to [facility] as a direct admit from [facility]. 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 Patient was transferred to [facility] for surgical management. Endorses history of CAD for which he had 3 stents placed 20+ years ago. He takes daily 81 mg Aspirin. Endorses a past smoking history (non-smoker for 10 years) and 80% of my original lung volume from COVID-19 . He uses a CPAP at night and has a prescription for a home inhaler which he doesn't use. Denies any renal disease. Pt had endovascular AAA repair by Dr Perrin on 11-08-22 through 11-09-22, pt tolerated procedure well and was transferred to SICU. Pt acute events overnight. Pt tolerated diet, kulkarni and art line removed. Hemodynamically stable, groin sites soft and dressing dry and intact bilaterally. Pt discharged home with . Continue ASA and statin, follow up with Dr. Perrin at [facility] in 1-2 weeks. Pertinent Physical Exam At Time of Discharge Physical Exam Vitals reviewed. Constitutional: Appearance: Normal appearance. HENT: Head: Normocephalic and atraumatic. Cardiovascular: Rate and Rhythm: Normal rate. Pulmonary: Effort: Pulmonary effort is normal. Skin: General: Skin is warm and dry. Comments: Groin sites soft with dressings dry and intact bilaterally. Neurological: General: No focal deficit present. Mental Status: He is alert and oriented to person, place, and time. Mental status is at baseline. Psychiatric: Mood and Affect: Mood normal. Lab Results Labs Reviewed BASIC METABOLIC PANEL - Abnormal Result Value Sodium 140 Potassium 3.7 Chloride 108 (*) CO2 25 BUN 25 Creatinine 1.01 Glucose 75 Calcium 8.9 Anion Gap 11 eGFR 85.7 BUN/Creatinine Ratio 24.8 PROTIME-INR - Abnormal Protime 14.3 INR 1.12 (*) CBC WITH AUTO DIFFERENTIAL - Abnormal Auto WBC 5.57 RBC 4.67 Hemoglobin 12.9 (*) Hematocrit 40.2 MCV 86.1 MCH 27.6 MCHC 32.1 RDW 15.2 (*) Neutrophils Relative 48.0 Lymphocytes Relative 33.6 Monocytes Relative 14.0 (*) Eosinophils Relative 3.4 Basophils Relative 0.5 Neutrophils Absolute 2.67 Lymphocytes Absolute 1.87 Monocytes Absolute 0.78 Eosinophils Absolute 0.19 Basophils Absolute 0.03 Platelets 174 nRBC % 0.0 Immature Granulocytes Relative 0.5 Immature Granulocytes Absolute 0.03 APTT - Abnormal aPTT 47.7 (*) BASIC METABOLIC PANEL - Abnormal Sodium 138 Potassium 4.1 Chloride 108 (*) CO2 23 BUN 19 Creatinine 0.80 Glucose 100 Calcium 8.1 (*) Anion Gap 11 eGFR 101.9 BUN/Creatinine Ratio 23.8 CBC - Abnormal Auto WBC 4.76 RBC 4.64 Hemoglobin 12.6 (*) Hematocrit 40.5 MCV 87.3 MCH 27.2 MCHC 31.1 (*) RDW 15.0 Platelets 147 (*) POCT GLUCOSE METER UNSOLICITED RESULTS - Abnormal Glucose POC 108 (*) ARTERIAL BLOOD GAS WITH CO-OXIMETRY - Abnormal pH, Arterial 7.37 pCO2, Arterial 39 pO2, Arterial 81 (*) HCO3, Arterial 22.5 Total Hemoglobin 13.7 O2 Sat, Arterial 97.0 Carboxyhemoglobin 1.3 Methemoglobin 0.3 Deoxyhemoglobin 2.9 Base Excess, Arterial -2.5 (*) Source Of Oxygen Vent Oxyhemoglobin 95.4 (*) Narrative: OR GAS CALCIUM, IONIZED - Abnormal Calcium, Ion 1.09 (*) SODIUM, WHOLE BLOOD - Abnormal Sodium, Whole Blood 135 (*) POCT GLUCOSE METER UNSOLICITED RESULTS - Abnormal Glucose POC 231 (*) BASIC METABOLIC PANEL - Abnormal Sodium 135 (*) Potassium 4.4 Chloride 106 CO2 23 BUN 16 Creatinine 0.84 Glucose 142 (*) Calcium 8.4 (*) Anion Gap 10 eGFR 100.5 BUN/Creatinine Ratio 19.0 CBC - Abnormal Auto WBC 10.35 RBC 4.48 Hemoglobin 12.1 (*) Hematocrit 38.7 (*) MCV 86.4 MCH 27.0 MCHC 31.3 (*) RDW 14.5 Platelets 161 MAGNESIUM - Normal Magnesium 1.9 PHOSPHORUS - Normal Phosphorus 3.5 TROPONIN I - Normal Troponin I 0.01 APTT - Normal aPTT 30.8 POTASSIUM, WHOLE BLOOD - Normal Potassium, Whole Blood 3.9 CBC AND DIFFERENTIAL Narrative: The following orders wer (more content not included)... Normal [facility] APTTon 11-09-2022 ACTIVATED PARTIAL THROMBOPLASTIN TIME IN PPP BY COAGULATION ASSAY 47.7 Seconds High 25.0-35.0 [facility] Comment on above: Result Comment: Clin ical significance of the APTT is questionable in the presence of heparin. Performed By: #### S ODIUM, WHOLE BLOOD #### [facility] [address] [place], [place] [address] ARTERIAL BLOOD GAS WITH CO-O XIMETRYon 11-09-2022 Base excess Calc (Bld) [Moles/Vol] -2.5000 mmol/L Low -2.0-3.0 [facility] Comment on above: Order Comment: OR GA S Performed By: #### L [id number] ####[facility] [id number] [place] [address] [facility] CARBOXYHEMOGLOBIN/HEM OGLOBIN TOTAL % IN BLOOD 1.3 % Normal 0.0-3.0 [facility] Comment on above: Order Comment: OR GA S Performed By: #### L [id number] ####[facility] [id number] [place] [address] [facility] CO2 (Bld) [Partial pressure] 39 mm[Hg] Normal 35-48 [facility] Comment on above: Order Comment: OR GA S Performed By: #### L [id number] ####[facility] [id number] [place] [address] [facility] DEOXYGENATED HEMOGLOBIN IN BLOOD 2.9 % Normal 1-[address] [facility] Comment on above: Order Comment: OR GA S Performed By: #### L [id number] ####[facility] [id number] [place] [address] [facility] HCO3 (Bld) [Moles/Vol] 22.5 mmol/L Normal 21.0-28.0 [facility] Comment on above: Order Comment: OR GA S Performed By: #### L [id number] ####[facility] [id number] [facility] [place] [address] [facility] Hemoglobin (Bld) [Mass/Vol] 13.7 g/dL Normal 11.7-17.4 [facility] Comment on above: Order Comment: OR GA S Performed By: #### L [id number] ####[facility] [id number] [facility] [address] [facility] METHEMOGLOBIN/100 IN BLOOD 0.3 % Normal 0.0-1.5 [facility] Comment on above: Order Comment: OR GA S Performed By: #### L [id number] ####[facility] [id number] [place] [address] [facility] Oxygen (Bld) [Partial pressure] 81 mm[Hg] Low 83-100 [facility] Comment on above: Order Comment: OR GA S Performed By: #### L [id number] ####[facility] [id number] [place] [address] [facility] OXYGEN SATURATION (%) IN ARTERIAL BLOOD 97.0 % Normal 94.0-98.0 [facility] Comment on above: Order Comment: OR GA S Performed By: #### L [id number] ####[facility] [id number] [place] [address] [facility] OXYGENATED HEMOGLOBIN IN BLOOD 95.4 % High 90.0-95.0 [facility] Comment on above: Order Comment: OR GA S Performed By: #### L [id number] ####[facility] [id number] [place] [address] [facility] pH (Bld) 7.37 [pH] Normal 7.35-7.45 [facility] Comment on above: Order Comment: OR GA S Performed By: #### L [id number] ####[facility] [id number] [place] [address] [facility] SOURCE OF OXYGEN Vent Normal [facility] Comment on above: Order Comment: OR GA S Performed By: #### L [id number] ####[facility] [id number] [place] [address] [facility] BASIC METABOLIC PANELon 05-1 Anion gap [Moles/Vol] 11 mmol/L Normal 7-20 [facility] Comment on above: Performed By: #### L [id number] ####[facility] (BEAKER)[address] [place] [address] Calcium [Mass/Vol] 8.1 mg/dL Low 8.6-10.3 [facility] Comment on above: Performed By: #### L [id number] ####[facility] (BEAKER)[address] [place] [address] Chloride [Moles/Vol] 108 mmol/L High 98-107 [facility] Comment on above: Performed By: #### L [id number] ####[facility] [facility] [place] [address] CO2 [Moles/Vol] 23 mmol/L Normal 21-31 [facility] Comment on above: Performed By: #### L [id number] ####[facility] ([facility])[address] [place] [address] Creatinine [Mass/Vol] 0.80 mg/dL Normal 0.70-1.30 [facility] Comment on above: Performed By: #### L [id number] ####[facility] ([facility])[address] [place] [address] GLOMERULAR FILTRATION RATE ML/MIN/1.73 SQ M.PREDICTED 101.9 mL/min/1.73m*2 Normal >60.0 [facility] Comment on above: Result Comment: The [facility]???s estimated glomerular filtration rate (eGFR) will no longer include consideration of race in its calculation. The National Kidney Foundation???s eGFR Task Force developed new recommendations for the estimation of the glomerular filtration rate in the [place] They recommend immediate implementation of the new equation refit without the race variable in all laboratories because the calculation does not include race. In addition to not including race in the calculation and reporting, it included diversity in its development, and has acceptable performance characteristics and potential consequences that do not disproportionately affect any one group of individuals. Performed By: #### L [id number] ####[facility] ([facility])[address] [place] [address] Glucose [Mass/Vol] 100 mg/dL Normal 70-100 [facility] Comment on above: Performed By: #### L [id number] ####[facility] ([facility])[address] [place] [address] Potassium [Moles/Vol] 4.1 mmol/L Normal 3.5-5.1 [facility] Comment on above: Performed By: #### L [id number] ####[facility] ([facility])[address] [place] [address] Sodium [Moles/Vol] 138 mmol/L Normal 136-145 [facility] Comment on above: Performed By: #### L [id number] ####[facility] ([facility])[address] [place] [address] Urea nitrogen [Mass/Vol] 19 mg/dL Normal 7-25 [facility] Comment on above: Performed By: #### L [id number] ####[facility] ([facility])[address] [place] [address] UREA NITROGEN/CREATININE (MASS RATIO) IN SER/PLAS 23.8 Normal [facility] Comment on above: Performed By: #### L [id number] ####[facility] ([facility])[address] [place] [address] CALCIUM, IONIZEDon CALCIUM IONIZED (MMOL/L) IN BLOOD 1.09 mmol/L Low 1.15-1.33 [facility] Comment on above: Performed By: #### C ALCIUM, IONIZED ####[facility] [id number] [place] [address] [place] CBCon 11-09-2022 Erythrocyte distribution width (RBC) [Ratio] 15.0 % Normal 11.5-15.0 [facility] Comment on above: Performed By: #### L [id number] ####[facility] [place] [address] ERYTHROCYTE MEAN CORPUSCULAR HEMOGLOBIN CONCENTRATION (G/DL) BY AUTOMATED 31.1 g/dL Low 32.0-35.0 [facility] Comment on above: Performed By: #### L [id number] ####[facility] [place] [address] Hematocrit (Bld) [Volume fraction] 40.5 % Normal 39.0-55.0 [facility] Comment on above: Performed By: #### L [id number] ####[facility] ([facility])[address] [place] [address] Hemoglobin (Bld) [Mass/Vol] 12.6 g/dL Low 13.0-17.0 [facility] Comment on above: Performed By: #### L [id number] ####[facility] ([facility])[address] [place] [address] MCH (RBC) [Entitic mass] 27.2 pg Normal 27.0-33.0 [facility] Comment on above: Performed By: #### L [id number] ####[facility] ([facility])[address] [place] [address] MCV (RBC) [Entitic vol] 87.3 fL Normal 82.0-98.0 [facility] Comment on above: Performed By: #### L [id number] ####[facility] ([facility])[address] [place] [address] PLATELETS (10*3/UL) IN BLOOD AUTOMATED COUNT 147 10*3/uL Low 150-400 [facility] Comment on above: Performed By: #### L [id number] ####[facility] [place] [address] RBC (Bld) [#/Vol] 4.64 10*6/uL Normal 4.20-5.70 [facility] Comment on above: Performed By: #### L [id number] ####[facility] [place] [address] WBC (Bld) [#/Vol] 4.76 10*3/uL Normal 4.00-10.60 [facility] Comment on above: Performed By: #### L [id number] ####[facility] (BEAKER)[address] [address] HPon 11-09-2022 HP History Of Present Illness Lizzy Kelly Jr. is a 57 y.o. male presenting to [facility] as a direct admit [facility]. 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 Patient was transferred to [facility] for surgical management Past Medical History HTN, YAMILKA, HLD, ventral hernia Surgical History He has no past surgical history on file. Social History He has no history on file for tobacco use, alcohol use, and drug use. Family History AAA (mother, father, siblings) Allergies NKDA Medications No medications prior to admission. Review of Systems Constitutional: Negative for activity change, chills and diaphoresis. HENT: Negative for ear pain. Respiratory: Negative for cough, choking, chest tightness and shortness of breath. Cardiovascular: Negative for chest pain, palpitations and leg swelling. Gastrointestinal: Negative for abdominal distention, abdominal pain, constipation and diarrhea. Musculoskeletal: Negative for back pain. Skin: Negative for pallor and rash. Neurological: Negative for dizziness and headaches. Last Recorded Vitals Visit Vitals BP 125/73 (BP Location: Left arm) Pulse 69 Temp 36.6 ???C (97.8 ???F) (Temporal) Resp 20 Ht 1.82 m (5' 11.65 ) Wt (!) 155 kg (341 lb 11.4 oz) SpO2 93% BMI 46.79 kg/m??? BSA 2.8 m??? Physical Exam Constitutional: General: He is not in acute distress. Appearance: He is obese. He is not ill-appearing or toxic-appearing. HENT: Head: Normocephalic and atraumatic. Mouth/Throat: Pharynx: Oropharynx is clear. Eyes: Extraocular Movements: Extraocular movements intact. Pupils: Pupils are equal, round, and reactive to light. Cardiovascular: Rate and Rhythm: Normal rate and regular rhythm. Pulses: Normal pulses. Heart sounds: Normal heart sounds. Pulmonary: Effort: Pulmonary effort is normal. Breath sounds: Normal breath sounds. No wheezing or rales. Abdominal: General: Abdomen is flat. There is no distension. Palpations: Abdomen is soft. Tenderness: There is no abdominal tenderness. Hernia: A hernia is present. Musculoskeletal: General: Normal range of motion. Cervical back: Neck supple. Skin: General: Skin is warm and dry. Capillary Refill: Capillary refill takes less than 2 seconds. Neurological: General: No focal deficit present. Mental Status: He is alert and oriented to person, place, and time. Psychiatric: Mood and Affect: Mood normal. Behavior: Behavior normal. Relevant Lab Results Lab Results Component Value Date NA 140 11/08/2022 K 3.7 11/08/2022 CL 108 (H) 11/08/2022 CO2 25 11/08/2022 BUN 25 11/08/2022 CREATININE 1.01 11/08/2022 GLUCOSE 75 11/08/2022 CALCIUM 8.9 11/08/2022 ANIONGAP 11 11/08/2022 EGFR 85.7 11/08/2022 BCR 24.8 11/08/2022 Relevant Imaging Results Electrocardiogram, 12-lead Normal sinus rhythm Inferior infarct , age undetermined Abnormal ECG No previous ECGs available Assessment/Plan Principal Problem: AAA (abdominal aortic aneurysm) without rupture (CMS/HCC) Assessment 57yo M presents as a direct admit from [facility] from surgical management of AAA Plan -Discussed with Dr. Aydin IBARRA [place] -Stat echo, ecg -Plan for EVAR 11/09 Based on my medical assessment, after consideration of the patient???s risk factors (age, co-morbidities, patient presenting symptoms and acuity), it is determined that the services needed warrant inpatient care. [facility] NURSNOTEon 11-09-2022 NURSNOTE Report given to josee sierra micu [facility] NURSNOTE PRE OP PULSES RIGHT DP + RIGHT PT + LEFT DP + RIGHT PT + ACT 188 0950 ACT 299 1004 ACT 279 1030 ACT 151 1055 MIN: 17.4 MGY 1935 CONTRAST 100ML [facility] OPNOTEon 11-09-2022 OPNOTE - Attestation signed by Gina Perrin MD at 11/10/2022 11:59 AM I was present for the entire procedure. REPAIR, AAA, ENDOVASCULAR Operative Note Date: 11/08/2022 - 11/09/2022 Location: [facility] OR Name: Lizzy Kelly Jr., : 1965, Diagnosis Pre-op Diagnosis * AAA (abdominal aortic aneurysm) without rupture (CMS/HCC) [I71.40] Post-op Diagnosis * AAA (abdominal aortic aneurysm) without rupture (CMS/HCC) [I71.40] Procedures 1) Percutaneous access and closure of femoral artery 2) Placement of aorto-biiliac endograft 3) Trans cath delivery of enhanced fixation device Surgeons * Gina Perrin - Primary Residents Karla Oconnor, PGY-5 Procedure Summary Anesthesia: General ASA: IV Estimated Blood Loss: Minimal Total IV Fluids: Please see anesthesia record Drains: * None in log * Staff: Supervisor Filtration: Parviz Cristina RN Scrub Person: Lennie Tuttle Assist: Paras Quintana CSA Orientee Supervisor Filtration: Norman Shaw Orientee Scrub: Rosa Elena Hernandez Indications: Lizzy Kelly Jr. is an 57 y.o. male with a family history of aneurysmal disease who presented with a 7 cm infrarenal AAA identified on screening ultrasound. The plan for endovascular AAA repair was discussed with the patient, including risks, benefits and alternatives. The patient elected to proceed with operative intervention and written informed consent was obtained. Implants: 1) 36 x 14 x 103 cm main body Endurant stent graft 2) 16 x 20 x 124 cm right iliac limb Endurant stent graft 3) 16 x 16 x 124 cm left iliac limb Endurant stent graft Fluoroscopic Time: 17.4 Min Fluoroscopic Dose: 1935 mGY Contrast Volume: 100 mL Procedure Details: Patient was taken to the operating room where a time-out was performed to verify correct patient, procedure, and site. The operative site had been marked in the preoperative holding area prior to transport to the operating room. The patient was transferred to the operating table and placed in the supine position. Cardiopulmonary monitoring was initiated. EPC's were placed on the lower extremities bilaterally. Prophylactic antibiotics were administered. General endotracheal anesthesia was initiated by the anesthesiology team and found to be adequate. The patient was then prepped and draped in the usual sterile fashion. The patients bilateral common femoral arteries were accessed using US with micropuncture kit and upsized to a 5 Fr sheath. The preclose technique was used with two ProGlide closure kits deployed at each groin site. The sheath was upsized to 9 Fr. A glide wire was advanced into the descending thoracic aorta via the R groin. A marker catheter was advanced over a wire from the L groin to the level of the renal arteries. A kempe catheter was advanced over the glide wire which was then exchanged for a stiff Lunderquist wire. The patient was then systemically heparinized with [id number] units of IV heparin and an ACT was drawn. An aortogram was performed to delineate the anatomy of the abdominal aorta and its branches. The 9 Fr sheath was removed from the groin and a 36 x 14 x 103 cm Medtronic Endurant II stent graft was advanced under fluoro and positioned such that the top marker was below the level of the renal arteries. The stent graft was deployed. Follow-up angiogram showed renal arteries to be patent with good positioning of the graft. A glide wire was then advanced through the marker catheter which was then retracted inferiorly to the gate which was then cannulated. We confirmed successful cannulation of the gate with rotation of the marker catheter in the main body. The glide wire was then exchanged for a stiff Lunderquist wire which was positioned in the proximal descending thoracic aorta. Angiogram from the left was performed to identify the takeoff of the left internal iliac artery which was marked and measured. The 9 Fr sheath was removed and a 16 x 16 x 124 cm left iliac limb was advanced over the wire under fluoro and lined up appropriately with the markers. The limb was then deployed. The 16 x 20 x 124 cm right iliac was then deployed. The delivery system was used to recapture the spindle. Six endoanchors were used to secure the proximal portion of the main body. The graft and limbs were then ballooned with the reliant balloon. Completion angiogram showed a good result with appropriately deployed graft with no evidence of endoleak. The catheters and wires were then removed and the Proglide anchoring sutures tightened. Hemostasis was excellent. Heparin was reveresed with protamine. All counts were correct. Findings: Successful treatment of the 7 cm infrarenal AAA with Medtronic Endurant II endograft. No evidence of endoleak on case completion. Complications: None; patient keith (more content not included)... Normal [facility] POCT ACTIVATED CLOTTING TIME UNSOLICITED RESULTSon 11-09-2022 POC ACTIVATED CLOTTING TIME 151 sec Normal 82-152 [facility] Comment on above: Performed By: #### S ODIUM, WHOLE BLOOD #### [facility] THER[facility] [address] POC ACTIVATED CLOTTING TIME 279 sec High 82-152 [facility] Comment on above: Performed By: #### S ODIUM, WHOLE BLOOD #### [facility] THERAPY [address] [place] [address] [facility] POC ACTIVATED CLOTTING TIME 299 sec High 82-152 [facility] Comment on above: Performed By: #### S ODIUM, WHOLE BLOOD #### [facility] THERAPY [address] [place] [address] [facility] POC ACTIVATED CLOTTING TIME 188 sec High 82-152 [facility] Comment on above: Performed By: #### S ODIUM, WHOLE BLOOD #### [facility] THERAPY [address] [place] [id number] [facility] POCT GLUCOSE METER UNSOLICIT ED RESULTSon 11-09-2022 Glucose [Mass/Vol] 231 mg/dL High 70-105 [facility] Comment on above: Result Comment: [email or web address] Performed By: #### L [id number] ####[facility] (BEAKER)[address] [place] [address] Glucose [Mass/Vol] 108 mg/dL High 70-105 [facility] Comment on above: Result Comment: ltol les Performed By: #### L [id number] ####[facility] ([facility])[address] [place] [address] POTASSIUM, WHOLE BLOODon Potassium [Moles/Vol] 3.9 mmol/L Normal 3.5-5.1 [facility] Comment on above: Performed By: #### P OTASSIUM, WHOLE BLOOD ####[facility] [id number] [place] [address] [place] SODIUM, WHOLE BLOODon 2022 SODIUM, WHOLE BLOOD 135 Low 136-145 [facility] Comment on above: Performed By: #### S ODIUM, WHOLE BLOOD #### [facility] THERAPY [address] [place] [address] [place] TYPE AND SCREENon 11-09-2022 AB SCREEN Negative Normal [facility] Comment on above: Performed By: #### L [id number] ####[facility] B[facility], ABO group Nom (Bld) O Normal [facility] Comment on above: Performed By: #### L [id number] ####[facility], RH TYPE IN BLOOD Positive Normal [facility] Comment on above: Performed By: #### L [id number] ####[facility], APTTon 11-08-2022 ACTIVATED PARTIAL THROMBOPLASTIN TIME IN PPP BY COAGULATION ASSAY 30.8 Seconds Normal 25.0-35.0 [facility] Comment on above: Result Comment: Clin ical significance of the APTT is questionable in the presence of heparin. Performed By: #### L [id number] ####[facility] ([facility])[address] [place] [address] BASIC METABOLIC PANELon 10-29 Anion gap [Moles/Vol] 11 mmol/L Normal 7-20 [facility] Comment on above: Performed By: #### S ODIUM, WHOLE BLOOD #### [facility] THERAP[facility] [address] [place] [address] [place] Calcium [Mass/Vol] 8.9 mg/dL Normal 8.6-10.3 [facility] Comment on above: Performed By: #### S ODIUM, WHOLE BLOOD #### [facility] THERAP[facility] [address] [place] [address] [place] Chloride [Moles/Vol] 108 mmol/L High 98-107 [facility] Comment on above: Performed By: #### S ODIUM, WHOLE BLOOD #### [facility] THERAPY [address] [place] [address] [place] CO2 [Moles/Vol] 25 mmol/L Normal 21-31 [facility] Comment on above: Performed By: #### S ODIUM, WHOLE BLOOD #### [facility] THERAPY [address] [place] [address] [facility] Creatinine [Mass/Vol] 1.01 mg/dL Normal 0.70-1.30 [facility] Comment on above: Performed By: #### S ODIUM, WHOLE BLOOD #### [facility] THERAP[facility] [address] [place] [address] [facility] GLOMERULAR FILTRATION RATE ML/MIN/1.73 SQ M.PREDICTED 85.7 mL/min/1.73m*2 Normal >60.[address] [facility] Comment on above: Result Comment: [facility]???s estimated glomerular filtration rate (eGFR) will no longer include consideration of race in its calculation. The National Kidney Foundation???s eGFR Task Force developed new recommendations for the estimation of the glomerular filtration rate in the [place] They recommend immediate implementation of the new equation refit without the race variable in all laboratories because the calculation does not include race. In addition to not including race in the calculation and reporting, it included diversity in its development, and has acceptable performance characteristics and potential consequences that do not disproportionately affect any one group of individuals. Performed By: #### S ODIUM, WHOLE BLOOD #### [facility] THERAP[facility] [address] [place] [address] [place] Glucose [Mass/Vol] 75 mg/dL Normal 70-100 [facility] Comment on above: Performed By: #### S ODIUM, WHOLE BLOOD #### [facility] THERAPY [address] [place], [place] [address] Potassium [Moles/Vol] 3.7 mmol/L Normal 3.5-5.1 [facility] Comment on above: Performed By: #### S ODIUM, WHOLE BLOOD #### [facility] THERAP[facility] [address] [place] [address] [facility] Sodium [Moles/Vol] 140 mmol/L Normal 136-145 [facility] Comment on above: Performed By: #### S ODIUM, WHOLE BLOOD #### [facility] THERAP[facility] [address] [place], [place] [address] Urea nitrogen [Mass/Vol] 25 mg/dL Normal 7-25 [facility] Comment on above: Performed By: #### S ODIUM, WHOLE BLOOD #### [facility] THERAP[facility] [address] [place], [place] [address] UREA NITROGEN/CREATININE (MASS RATIO) IN SER/PLAS 24.8 Normal [facility] Comment on above: Performed By: #### S ODIUM, WHOLE BLOOD #### [facility] TH[facility]AP[facility] [address] [place], [place] [address] CBC WITH AUTO DIFFERENTIALon 11-08-2022 Basophils (Bld) [#/Vol] 0.03 10*3/uL Normal 0.00-0.20 [facility] Comment on above: Performed By: #### L [id number] #### [facility] (BEAKER) [address] [place] [address] Basophils/100 WBC (Bld) 0.5 % Normal 0.0-1.0 [facility] Comment on above: Performed By: #### L [id number] #### [facility] ([facility]ER) [address] [place] [address] Eosinophils (Bld) [#/Vol] 0.19 10*3/uL Normal 0.00-0.50 [facility] Comment on above: Performed By: #### L [id number] #### [facility] (BEAKER) [address] [place] [address] Eosinophils/100 WBC (Bld) 3.4 % Normal 0.0-6.0 [facility] Comment on above: Performed By: #### L [id number] #### [facility] [address] [address] Erythrocyte distribution width (RBC) [Ratio] 15.2 % High 11.5-15.0 [facility] Comment on above: Performed By: #### L [id number] #### [facility] ([facility]) [address] [place] [address] ERYTHROCYTE MEAN CORPUSCULAR HEMOGLOBIN CONCENTRATION (G/DL) BY AUTOMATED 32.1 g/dL Normal 32.0-35.0 [facility] Comment on above: Performed By: #### L [id number] #### [facility] ([facility]) [address] [place] [address] Hematocrit (Bld) [Volume fraction] 40.2 % Normal 39.0-55.0 [facility] Comment on above: Performed By: #### L [id number] #### [facility] ([facility]) [address] [place] [address] Hemoglobin (Bld) [Mass/Vol] 12.9 g/dL Low 13.0-17.0 [facility] Comment on above: Performed By: #### L [id number] #### [facility] [address] [place] [address] Immature granulocytes (Bld) [#/Vol] 0.03 10*3/uL Normal 0.00-0.20 [facility] Comment on above: Performed By: #### L [id number] #### [facility] (BEAKER) [address] [place] [address] Immature granulocytes/100 WBC (Bld) 0.5 % Normal 0.0-1.0 [facility] Comment on above: Performed By: #### L [id number] #### [facility] (BEAKER) [address] [place] [address] Lymphocytes (Bld) [#/Vol] 1.87 10*3/uL Normal 1.20-4.00 [facility] Comment on above: Performed By: #### L [id number] #### [facility] [address] [place] [address] Lymphocytes/100 WBC (Bld) 33.6 % Normal 20.0-45.0 [facility] Comment on above: Performed By: #### L [id number] #### [facility] [address] [place] [address] MCH (RBC) [Entitic mass] 27.6 pg Normal 27.0-33.0 [facility] Comment on above: Performed By: #### L [id number] #### [facility] ([facility]) [address] [place] [address] MCV (RBC) [Entitic vol] 86.1 fL Normal 82.0-98.0 [facility] Comment on above: Performed By: #### L [id number] #### [facility] ([facility]) [address] [place] [address] Monocytes (Bld) [#/Vol] 0.78 10*3/uL Normal 0.10-1.00 [facility] Comment on above: Performed By: #### L [id number] #### [facility] ([facility]) [address] [place] [address] Monocytes/100 WBC (Bld) 14.0 % High 5.0-12.0 [facility] Comment on above: Performed By: #### L [id number] #### [facility] [address] [place] [address] Neutrophils (Bld) [#/Vol] 2.67 10*3/uL Normal 1.60-7.60 [facility] Comment on above: Performed By: #### L [id number] #### [facility] [address] [place] [address] Neutrophils/100 WBC (Bld) 48.0 % Normal 40.0-72.0 [facility] Comment on above: Performed By: #### L [id number] #### [facility] ([facility]) [address] [place] [address] NRBC (PER 100 WBCS) BY AUTOMATED COUNT 0.0 % Normal 0 [facility] Comment on above: Performed By: #### L [id number] #### [facility] ([facility]) [address] [place] [address] PLATELETS (10*3/UL) IN BLOOD AUTOMATED COUNT 174 10*3/uL Normal 150-400 [facility] Comment on above: Performed By: #### L [id number] #### [facility] ([facility]) [address] [address] RBC (Bld) [#/Vol] 4.67 10*6/uL Normal 4.20-5.70 [facility] Comment on above: Performed By: #### L [id number] #### [facility] ([facility]) [address] [address] WBC (Bld) [#/Vol] 5.57 10*3/uL Normal 4.00-10.60 [facility] Comment on above: Performed By: #### L [id number] #### [facility] ([facility]) [address] [place] [address] CHEMISTRYOrdered By: SYSTEM SYSTEM on 11-08-2022 Anion gap [Moles/Vol] 11 mmol/L Normal 6 - 16 mEq/L F [facility] Remisol Calcium [Mass/Vol] 9.1 mg/dL Normal 8.9 - 11. 1 mg/dL [facility] Chloride [Moles/Vol] 105 mmol/L Normal 101 - 1 11 mmol/L [facility] CO2 [Moles/Vol] 25 mmol/L Normal 21 - 31 mmol/L [facility] Creatinine [Mass/Vol] 1.0 mg/dL Normal 0.5 - 1.3 mg/dL [facility] Remisol GFR/1.73 sq M.predicted among non-blacks MDRD (S/P/Bld) [Vol rate/Area] 87 mL/min/1.73 m2 Normal >=59mL/min/1. 73 m2 [facility] Chem S Glucose [Mass/Vol] 184 mg/dL Normal 55 - 199 mg/dL [facility] Rem[facility] Potassium [Moles/Vol] 3.7 mmol/L Normal 3.5 - 5.3 mmol/L [facility] Sodium [Moles/Vol] 137 mmol/L Normal 135 - 145 mmol/L [facility] Urea nitrogen [Mass/Vol] 25 mg/dL High 5 - 21 mg/dL [facility] Remisol Urea nitrogen/Creatinine [Mass ratio] 25 mg/mg High 10 - 20 [facility] COAGULATIONOrdered By: Silverio Pack on 11-08-2022 aPTT Coag (PPP) [Time] 33.4 s Normal 25.1 - 36.5 second(s) [facility] Auto Coag INR Coag (PPP) [Relative time] 1.2 {INR} Invalid Interpretation Code [facility] Auto Coag PT Coag (PPP) [Time] 13.7 s High 9.4 - 1 2.5 second(s) [facility] Auto Coag HEMATOLOGYOrdered By: SYSTEM SYSTEM on 11-08-2022 Basophils/100 WBC (Bld) 0.9 % Normal 0.0 - 2.0 % [facility] HemeAutoSS Basophils/Leukocytes Auto (Bld) [Pure # fraction] 0.0 E9/L Normal 0.0 - 0.2 E9/L [facility] HemeAutoSS Eosinophils/100 WBC (Bld) 2.5 % Normal 0.0 - 8.0 % [facility] HemeAutoSS Eosinophils/Leukocyte s Auto (Bld) [Pure # fraction] 0.1 E9/L Normal 0.0 - 0.5 E9/L [facility] HemeAutoSS Lymphocytes/100 WBC (Bld) 29.6 % Normal 14.0 - 50.0 % [facility] HemeAutoSS Lymphocytes/Leukocyte s Auto (Bld) [Pure # fraction] 1.4 E9/L Normal 1.0 - 4.0 E9/L [facility] HemeAutoSS Monocytes/100 WBC (Bld) 9.0 % Normal 4.0 - 14.0 % [facility] HemeAutoSS Monocytes/Leukocytes Auto (Bld) [Pure # fraction] 0.4 E9/L Normal 0.2 - 1.0 E9/L [facility] HemeAutoSS Neutrophils/100 WBC (Bld) 58.0 % Normal 36.0 - 75.0 % [facility] HemeAutoSS Neutrophils/Leukocyte s Auto (Bld) [Pure # fraction] 2.8 E9/L Normal 2.0 - 7.5 E9/L [facility] HemeAutoSS HEMATOLOGYOrdered By: Mer wadsworth on 11-08-2022 Erythrocyte distribution width (RBC) [Ratio] 15.3 % High 10.9 - 14.2 % [facility] HemeAutoSS Hematocrit (Bld) [Volume fraction] 39.8 % Normal 37.7 - 49.0 % [facility] HemeAutoSS Hemoglobin (Bld) [Mass/Vol] 12.9 g/dL Low 13.5 - 17.5 gm/dL [facility] HemeAutoSS MCH (RBC) [Entitic mass] 26.9 pg Low 27.0 - 34.0 pg [facility] HemeAutoSS MCHC (RBC) [Mass/Vol] 32.5 g/dL Normal 31.4 - 36.0 gm/dL [facility] HemeAutoSS MCV (RBC) [Entitic vol] 82.7 fL Normal 80.0 - 100.0 fL [facility] HemeAutoSS Platelet mean volume (Bld) [Entitic vol] 8.8 fL Normal 6.4 - 10.8 fL [facility] HemeAutoSS Platelets (Bld) [#/Vol] 157.0 E9/L Normal 150.0 - 500.0 E9/L [facility] HemeAutoSS RBC (Bld) [#/Vol] 4.8 E12/L Normal 4.3 - 5.9 E12/L [facility] HemeAutoSS WBC corrected for nucl RBC Auto (Bld) [#/Vol] 4.9 E9/L Normal 4.0 - 11.0 E9/L [facility] HemeAutoSS MAGNESIUMon 11-08-2022 Magnesium [Mass/Vol] 1.9 mg/dL Normal 1.9-2.7 [facility] Comment on above: Performed By: #### L [id number] ####[facility] ([facility])[address] [place] [address] PHOSPHORUSon 11-08-2022 Magnesium [Mass/Vol] 3.5 mg/dL Normal 2.5-5.0 [facility] Comment on above: Performed By: #### L [id number] ####[facility] ([facility])[address] [place] [address] PROTIME-INRon 11-08-2022 INR IN PPP BY COAGULATION ASSAY 1.12 High 0.90-1.10 [facility] Comment on above: Result Comment: ACCC P RECOMMENDED INR FOR WARFARIN THERAPY CONDITION INR PROPHYLAXIS OF VENOUS THROMBOSIS 2-3 (HIGH-RISK SURGERY) TREATMENT OF VENOUS THROMBOSIS 2-3 TREATMENT OF PULMONARY EMBOLISM 2-3 PREVENTION OF SYSTEMIC EMBOLISM: 2-3 ACUTE MYOCARDIAL INFARCTION TISSUE HEART VALVES VALVULAR HEART DISEASE ATRIAL FIBRILLATION RECURRENT SYSTEMIC EMBOLISM MECHANICAL HEART VALVE 2.5-3.5 FROM: ORAL ANTICOAGULANTS. MECHANISM OF ACTION, CLINICAL EFFECTIVENESS, AND OPTIMAL THERAPEUTIC RANGE. CHEST 1995;108:231S-246S. Performed By: #### L [id number] ####[facility] ([employer])[address] [place] [address] PROTHROMBIN TIME (PT) IN PPP BY COAGULATION ASSAY 14.3 Seconds Normal 12.3-14.8 [facility] Comment on above: Performed By: #### L [id number] ####[facility] ([facility])[address] [place] [address] TROPONIN Ion 11-08-2022 Troponin I.cardiac [Mass/Vol] 0.01 ng/mL Normal 0.00-0.04 [facility] Comment on above: Performed By: #### L [id number] ####[facility] ([facility])[address] [place] [address] Tobacco Screening.on 022 Tobacco use status CPHS b) No -[facility] 600 DO Work Phone: [facility] CARDIAC STRESS/REST INJE CTIONon 01-26-2022 [facility] CARDIAC STRESS/REST INJECTION Patient Name: LIZZY KELLY STUDY: MYOCARDIAL PERFUSION STRESS TEST WITH LEXISCAN Performing facility: [facility], [address] [place] [address], [address], [place] [address] [facility] Provider: Dharmesh Lang MD, FACC PCP: Dr. Lacy Tracey Supervising provider: Dharmesh Lang MD, FACC INDICATION: CAD; Chest Pain; Dyspnea Fatigue HISTORY: Gender: M; Age: 56 y/o ; Height: 0 cm; Weight: 535.6104605 kg. CAD; High Cholesterol; Previous TX; HTN; Chest Pain; SOB; Fatigue; Quit smoking 8 years ago. Cardiac catheterization on 2012. PTCA on 2012. COMPARISON: Previous nuclear testing completed [id number] at [facility]. ACCESSION NUMBER(S): [id number]; [id number]; [id number] ORDERING CLINICIAN: WILDER LANG TECHNIQUE: TWO DAY protocol. Stress injection: Date:01-26-22, 34.9 mCi of Myoview IV 20 seconds after rapid injection of Lexiscan. Rest injection: Date: 01-30-22, 34.2 mCi of Myoview IV at rest. The patient had a rapid injection of 0.4 mg of Lexiscan IV over 10 seconds. Imaging was performed by gated tomographic technique. Reason for Lexiscan: dizziness/unsteady/fa ll risk STRESS TEST DATA: Resting heart rate was 71 BPM. Resting blood pressure was 128/70 mmHg. Peak blood pressure was 110/58 mmHg. Peak heart rate was 96 BPM. TEST TERMINATED DUE TO: Protocol completed FINDINGS: STRESS TEST RESULTS: Resting electrocardiogram revealed normal sinus rhythm. There were no significant ischemic ECG changes or dysrhythmias. The patient did not have chest pains/symptoms during procedure. There was a normal recovery phase. IMAGING RESULTS: Image quality was good. Rest and stress tomographic images were reviewed and revealed normal perfusion without evidence of ischemia, myocardial infarction, or left ventricular dilatation with stress. Overall left ventricular systolic function appeared to be normal without regional wall motion abnormalities. Ejection fraction was 61%. TID is 1.07 and is normal. There were no evidence of attenuation artifact. IMPRESSION: Normal Lexiscan Myoview cardiac perfusion stress test. No evidence of ischemia or myocardial infarction by perfusion imaging. Normal left ventricular systolic function, ejection fraction 61%. No change when compared to prior study. Electronically signed by: AYLEEN DIAL MD Normal [facility] No Panel Informationon 01-26 Normal [facility] 600 DO Work Phone: Tobacco Screening.on 022 Tobacco use status CPHS b) No [facility] 600 DO Work Phone: Echocardiogramon 12-19-[address], [address] [place] [address] TRANSTHORACIC ECHOCARDIOGRAM REPORT Patient Name: LIZZY KELLY Reading Physician: [id number] A Lang MD Study Date: 12/19/2021 Referring Physician: Betty LANG MRN/PID: [id number] PCP: Adi Macias MD Accession/Order#: [id number] Department Location: [facility] Date of : 1965 Fellow: Gender: M Nurse: Admit Date: Editor House Organ: Maida Ochoa [facility], T Height: 182.88 cm CC Report to: Weight: 150.60 kg Study Type: Echocardiogram BSA: 2.64 m2 Blood Pressure: 126 /78 mmHg Diagnosis/ICD: R06.00-Dyspnea, unspecified Indication: CAD, PTCA, HTN, Hyperlipidemia, Former Smoker. Morbid Obesity, COVID-19 Pneumonia Procedure/CPT: Echo Complete w Full [id number] Study Detail: The following Echo studies were performed: 2D, M-Mode, Doppler and color flow. PHYSICIAN INTERPRETATION: Left Ventricle: The left ventricular systolic function is normal, with an estimated ejection fraction of 65-70%. There are no regional wall motion abnormalities. The left ventricular cavity size is normal. There is mild concentric left ventricular hypertrophy. Spectral Doppler shows a normal pattern of left ventricular diastolic filling. Left Atrium: The left atrium is normal in size. Right Ventricle: The right ventricle is normal in size. There is normal right ventricular global systolic function. Right Atrium: The right atrium is normal in size. Aortic Valve: The aortic valve is trileaflet. There is evidence of mild aortic valve stenosis. There is no evidence of aortic valve regurgitation. The peak instantaneous gradient of the aortic valve is 13.7 mmHg. The mean gradient of the aortic valve is 7.0 mmHg. Mitral Valve: The mitral valve is mildly thickened. There is trace to mild mitral valve regurgitation. Tricuspid Valve: The tricuspid valve is structurally normal. No evidence of tricuspid regurgitation. Pulmonic Valve: The pulmonic valve is not well visualized. There is no indication of pulmonic valve regurgitation. Pericardium: There is no pericardial effusion noted. Aorta: The aortic root is normal. Systemic Veins: The inferior vena cava appears mildly dilated. CONCLUSIONS: 1. The left ventricular systolic function is normal with a 65-70% estimated ejection fraction. 2. Mild aortic valve stenosis. QUANTITATIVE DATA SUMMARY: 2D MEASUREMENTS: Normal Ranges: Ao Root d: 3.00 cm (2.0-3.7cm) LAs: 3.60 cm (2.7-4.0cm) RVIDd: 3.70 cm (0.9-3.6cm) IVSd: 1.20 cm (0.6-1.1cm) LVPWd: 1.10 cm (0.6-1.1cm) LVIDd: 5.40 cm (3.9-5.9cm) LVIDs: 3.40 cm LV Mass Index: 94.4 g/m2 LV % FS 37.0 % LV SYSTOLIC FUNCTION BY 2D PLANIMETRY (MOD): Normal Ranges: EF-A4C View: 70.3 % (>55%) LV DIASTOLIC FUNCTION: Normal Ranges: MV Peak E: 1.03 m/s (0.7-1.2 m/s) MV Peak A: 0.89 m/s (0.42-0.7 m/s) E/A Ratio: 1.15 (1.0-2.2) MV lateral e' 0.11 m/s MV medial e' 0.09 m/s E/e' Ratio: 9.50 (<8.0) MITRAL VALVE: Normal Ranges: MV Vmax: 1.08 m/s (<1.3m/s) MV peak P.7 mmHg (<5mmHg) MV mean P.0 mmHg (<48mmHg) MITRAL INSUFFICIENCY: Normal Ranges: MR Vmax: 241.00 cm/s AORTIC VALVE: Normal Ranges: AoV Vmax: 1.85 m/s (<1.7m/s) AoV Peak P.7 mmHg (<20mmHg) AoV Mean P.0 mmHg (1.7-11.5mmHg) LVOT Max William: 1.30 m/s (<1.1m/s) AoV VTI: 38.10 cm (18-25cm) LVOT VTI: 25.50 cm LVOT Diameter: 2.70 cm (1.8-2.4cm) AoV Area, VTI: 3.83 cm2 (2.5-5.5cm2) AoV Area,Vmax: 4.02 cm2 (2.5-4.5cm2) AoV Dimensionless Index: 0.67 PULMONIC VALVE: Normal Ranges: PV Max William: 0.9 m/s (0.6-0.9m/s) PV Max P.6 mmHg [id number] Wilder Lang MD Electronically signed on 12/22/2021 at 3:00:54 PM Final Normal [facility] Tobacco Screening.on 022 Adult depression screening assessment No [facility] 600 DO Work Phone: Tobacco use status CPHS b) No [facility] 600 DO Work Phone: Vital Signs Date Time Vital Sign Value Performing Clinician Facility 04-08-2024 09:23-0400 Body height 180.3 cm Bryan Saunders DPM [facility]AC[facility] Work Phone: [facility] 04-08-2024 09:23-0400 Body mass index (BMI) [Ratio] 45.19 kg/m2 Bryan Saunders DPM FAC[facility]AS Work Phone: [facility] 04-08-2024 09:23-0400 Body weight 146.97 kg Bryan Dolce DPM FAC[facility]AS Work Phone: [facility] 04-08-2024 09:23-0400 Diastolic blood pressure 79 mm[Hg] Bryan Dolce DPM FAC[facility]AS Work Phone: [facility] 04-08-2024 09:23-0400 Heart rate 74 /min Bryan Dolce DPM FAC[facility]AS Work Phone: [facility] 04-08-2024 09:23-0400 Systolic blood pressure 125 mm[Hg] Bryan Dolce DPM [facility]AC[facility]AS Work Phone: [facility] 04-01-2024 09:10-0400 Body height 180.3 cm Bryan Dolce DPM FAC[facility]AS Work Phone: [facility] 04-01-2024 09:10-0400 Body mass index (BMI) [Ratio] 45.19 kg/m2 Bryan Dolce DPM [facility]AC[facility]AS Work Phone: [facility] 04-01-2024 09:10-0400 Body weight 146.97 kg Bryan Dolce DPM FAC[facility]AS Work Phone: [facility] 04-01-2024 09:10-0400 Diastolic blood pressure 76 mm[Hg] Bryan Dolce DPM FAC[facility]AS Work Phone: [facility] 04-01-2024 09:10-0400 Heart rate 81 /min Bryan Dolce DPM FACFAS Work Phone: [facility] 04-01-2024 09:10-0400 Systolic blood pressure 128 mm[Hg] Bryan Dolce DPM FAC[facility]AS Work Phone: [facility] 03-17-2024 10:07-0400 Body height 180.3 cm Bryan Dolce DPM [facility]AC[facility]AS Work Phone: [facility] 03-17-2024 10:07-0400 Body mass index (BMI) [Ratio] 45.19 kg/m2 Bryan Dolce DPM FAC[facility]AS Work Phone: [facility] 03-17-2024 10:07-0400 Body weight 146.97 kg Bryan Dolce DPM [facility]AC[facility]AS Work Phone: [facility] 03-17-2024 10:07-0400 Diastolic blood pressure 77 mm[Hg] Bryan Saunders DPM [facility] Work Phone: [facility] 03-17-2024 10:07-0400 Heart rate 74 /min Bryan Saunders DPM [facility]AC[facility]AS Work Phone: [facility] 03-17-2024 10:07-0400 Systolic blood pressure 126 mm[Hg] Bryan Saunders DPM FACFAS Work Phone: [facility] 02-19-2024 09:05-0400 Blood Pressure Location [facility] 02-19-2024 09:05-0400 Diastolic blood pressure 73 mm[Hg] [facility] 02-19-2024 09:05-0400 Heart rate 64 /min [facility] 02-19-2024 09:05-0400 Respiratory rate 17 /min [facility] 02-19-2024 09:05-0400 SaO2% (BldA) [Mass fraction] 96 % [facility] 02-19-2024 09:05-0400 Systolic blood pressure 130 mm[Hg] [facility] 08-21-2023 09:57-0500 Blood Pressure Location [facility] 08-21-2023 09:57-0500 Diastolic blood pressure 79 mm[Hg] [facility] 08-21-2023 09:57-0500 Heart rate 60 /min [facility] 08-21-2023 09:57-0500 SaO2% (BldA) [Mass fraction] 93 % [facility] 08-21-2023 09:57-0500 Systolic blood pressure 133 mm[Hg] [facility] 02-26-2023 10:27-0400 Body height 182.88 cm Lennie E Robuck Work Phone: [facility] 250 DO Work Phone: 02-26-2023 10:27-0400 Body mass index (BMI) [Ratio] 45.98 kg/m2 Lennie E Robuck Work Phone: [facility] [facility] 250 DO Work Phone: 02-26-2023 10:27-0400 Body surface area Derived from formula 2.67 m2 Lennie E Robuck Work Phone: [facility] 250 DO Work Phone: 02-26-2023 10:27-0400 Body weight 153.77 kg Lennie E Robuck Work Phone: [facility] 250 DO Work Phone: 02-26-2023 10:27-0400 Diastolic blood pressure 58 mm[Hg] Lennie E Robuck Work Phone: [facility] 250 DO Work Phone: 02-26-2023 10:27-0400 Heart rate 66 /min Lennie E Robuck Work Phone: [facility] [facility] 250 DO Work Phone: 02-26-2023 10:27-0400 Systolic blood pressure 108 mm[Hg] Lennie E Robuck Work Phone: [facility] 250 DO Work Phone: 02-20-2023 10:20-0400 Diastolic blood pressure 83 mm[Hg] [facility] 02-20-2023 10:20-0400 Heart rate 89 /min [facility] 02-20-2023 10:20-0400 SaO2% (BldA) [Mass fraction] 96 % [facility] 02-20-2023 10:20-0400 Systolic blood pressure 118 mm[Hg] [facility] 12-24-2022 10:50-0400 Blood Pressure Location Mohcallie Aydin [facility] 12-24-2022 10:50-0400 Diastolic blood pressure 79 mm[Hg] Mohamed Aydin [facility] 12-24-2022 10:50-0400 Heart rate 71 /min Mohamed Aydin [facility] 12-24-2022 10:50-0400 SaO2% (BldA) [Mass fraction] 95 % Mohamed Aydin [facility] 12-24-2022 10:50-0400 Systolic blood pressure 121 mm[Hg] Mohamed Aydin [facility] 11-08-2022 15:00-0400 Heart rate 72 /min Raffy Hernandez [facility] 11-08-2022 15:00-0400 Mean blood pressure 105 mm[Hg] Raffy Hernandez [facility] 11-08-2022 15:00-0400 Respiratory rate 20 /min Raffy David [facility] 11-08-2022 15:00-0400 SaO2% (BldA) [Mass fraction] 95 % Raffy David [facility] 11-08-2022 15:00-0400 Systolic blood pressure 146 mm[Hg] Raffy David [facility] 11-08-2022 14:30-0400 Diastolic blood pressure 84 mm[Hg] Raffy David [facility] 11-08-2022 14:30-0400 Heart rate 67 /min Raffy David [facility] 11-08-2022 14:30-0400 Mean blood pressure 104 mm[Hg] Raffy David [facility] 11-08-2022 14:30-0400 Respiratory rate 18 /min Raffy David [facility] 11-08-2022 14:30-0400 SaO2% (BldA) [Mass fraction] 98 % Raffy David [facility] 11-08-2022 14:30-0400 Systolic blood pressure 145 mm[Hg] Raffy David [facility] 11-08-2022 14:00-0400 Diastolic blood pressure 86 mm[Hg] Raffy David [facility] 11-08-2022 14:00-0400 Heart rate 77 /min Raffy David [facility] 11-08-2022 14:00-0400 Respiratory rate 16 /min Raffy David [facility] 11-08-2022 14:00-0400 Systolic blood pressure 143 mm[Hg] Raffy David [facility] 11-08-2022 10:53-0400 Body temperature 98.06 [degF] Raffy Hernandez [facility] 11-08-2022 10:53-0400 Heart rate 87 /min Raffy Hernandez [facility] 11-08-2022 10:53-0400 Respiratory rate 18 /min Raffy Hernandez [facility] 10-24-2022 10:45-0400 Blood Pressure Location [facility] 10-24-2022 10:45-0400 Diastolic blood pressure 68 mm[Hg] [facility] 10-24-2022 10:45-0400 Heart rate 82 /min [facility] 10-24-2022 10:45-0400 SaO2% (BldA) [Mass fraction] 95 % [facility] 10-24-2022 10:45-0400 Systolic blood pressure 107 mm[Hg] [facility] 02-21-2022 10:56-0400 Body height 182.88 cm [facility] Work Phone: 02-21-2022 10:56-0400 Body mass index (BMI) [Ratio] 45.16 kg/m2 [facility] Tracey [facility] DO Work Phone: 02-21-2022 10:56-0400 Body surface area Derived from formula 2.65 m2 Lennie E Robuck Work Phone: [facility] 600 DO Work Phone: 02-21-2022 10:56-0400 Body weight 151.05 kg Lennie Garrett Robuck Work Phone: [facility] 600 DO Work Phone: 02-21-2022 10:56-0400 Diastolic blood pressure 72 mm[Hg] Lennie Garrett Robuck Work Phone: [facility] 600 DO Work Phone: 02-21-2022 10:56-0400 Heart rate 72 /min Lennie Tracey Work Phone: [facility] 600 DO Work Phone: 02-21-2022 10:56-0400 Systolic blood pressure 112 mm[Hg] Lennie Tracey Work Phone: [facility] 600 DO Work Phone: 01-26-2022 10:00-0400 61 1 Lennie Tracey Work Phone: [facility] 600 DO Work Phone: Comment on above: [id number] 01-17-2022 10:08-0400 Body height 182.88 cm Lennie Tracey Work Phone: [facility] 600 DO Work Phone: 01-17-2022 10:08-0400 Body mass index (BMI) [Ratio] 44.89 kg/m2 Lennie Garrett Robuck Work Phone: [facility] 600 DO Work Phone: 01-17-2022 10:08-0400 Body surface area Derived from formula 2.64 m2 Lennie Garrett Robuck Work Phone: [facility] 600 DO Work Phone: 01-17-2022 10:08-0400 Body weight 150.14 kg Lennie E Robuck Work Phone: [facility] 600 DO Work Phone: 01-17-2022 10:08-0400 Diastolic blood pressure 70 mm[Hg] Lennie E Robuck Work Phone: [facility] 600 DO Work Phone: 01-17-2022 10:08-0400 Heart rate 68 /min Lennie E Robuck Work Phone: [facility] 600 DO Work Phone: 01-17-2022 10:08-0400 Systolic blood pressure 122 mm[Hg] Lennie E Robuck Work Phone: [facility] 600 DO Work Phone: 12-19-2021 12:30-0400 70 1 Lennie E Robuck Work Phone: [facility] [facility] [facility] [place] Work Phone: Comment on above: [id number] 11-20-2021 09:51-0400 Body height 182.88 cm Lennie E Robuck Work Phone: [facility] 600 DO Work Phone: 11-20-2021 09:51-0400 Body mass index (BMI) [Ratio] 45.03 kg/m2 Lennie E Robuck Work Phone: [facility] 600 DO Work Phone: 11-20-2021 09:51-0400 Body surface area Derived from formula 2.64 m2 Lennie E Robuck Work Phone: [facility] 600 DO Work Phone: 11-20-2021 09:51-0400 Body weight 150.6 kg Lennie E Robuck Work Phone: [facility] [employer] 600 DO Work Phone: 11-20-2021 09:51-0400 Diastolic blood pressure 68 mm[Hg] Lennie Tracey Work Phone: [facility] 600 DO Work Phone: 11-20-2021 09:51-0400 Heart rate 67 /min Lennie Tracey Work Phone: [facility] 600 DO Work Phone: 11-20-2021 09:51-0400 Systolic blood pressure 120 mm[Hg] Lennie Tracey Work Phone: [facility] [employer] 600 DO Work Phone: Encounters Encounter Date Encounter Type Care Provider Facility Start: 04-08-2024 End: 04-08-2024 Bamboo flowsheet Bryan Tong Dolce DPM FACFAS Work Phone: [facility] Start: 04-08-2024 End: 04-08-2024 Bamboo flowsheet Bryan Tong Carlislece DPM FACFAS Work Phone: [facility] Start: 04-08-2024 End: 04-08-2024 ambulatory BRYAN SAUNDERS Not Available Start: 04-08-2024 End: 04-08-2024 Office outpatient visit 25 minutes Bryan Saunders DPM FAC[facility]AS Work Phone: [facility] Comment on above: Venous insufficiency (chronic) (peripheral) (Primary Dx); Cellulitis of right leg; Chronic ulcer of right leg with fat layer exposed (CMS/HCC) Start: 04-01-2024 End: 04-01-2024 Bamboo flowsheet Bryan Tong Carlislece DPM FAC[facility]AS Work Phone: [facility] Start: 04-01-2024 End: 04-01-2024 Bamboo flowsheet Bryan Tong Carlislece DPM FACFAS Work Phone: [facility] Start: 04-01-2024 End: 04-01-2024 ambulatory BRYAN D DOLCE Not Available Start: 04-01-2024 End: 04-01-2024 Office outpatient visit 15 minutes Bryan D Dolce DPM FACFAS Work Phone: [facility] Comment on above: Other synovitis and tenosynovitis, left ankle and foot (Primary Dx); Left ankle pain, unspecified chronicity; Venous insufficiency (chronic) (peripheral); Chronic ulcer of right leg with fat layer exposed (CMS/HCC); Cellulitis of right leg Start: 03-17-2024 End: 03-17-2024 Bamboo flowsheet Bryan D Dolce DPM FACFAS Work Phone: [facility] Start: 03-17-2024 End: 03-17-2024 Bamboo flowsheet Bryan D Dolce DPM FACFAS Work Phone: [facility] Start: 03-17-2024 End: 03-17-2024 ambulatory BRYAN D DOLCE Not Available Start: 03-17-2024 End: 03-17-2024 Office outpatient visit 15 minutes Bryan D Dolce DPM FACFAS Work Phone: [facility] Comment on above: Sinus tarsi syndrome , left (Primary Dx); Other synovitis and tenosynovitis, left ankle and foot; Other enthesopathy of left foot and ankle [M77.52]; Left ankle pain, unspecified chronicity; Sprain of anterior talofibular ligament of left ankle, initial encounter Start: 03-03-2024 End: 03-03-2024 ambulatory BRYAN D DOLCE Not Available Start: 02-19-2024 End: 02-19-2024 ambulatory Lennie TRACEY Facility:[facility] Start: 02-19-2024 End: 02-19-2024 Patient encounter procedure Lennie TRACE[facility] Start: 08-21-2023 End: 08-21-2023 Lab Drop off Angella Mccallum [facility] Start: 08-21-2023 End: 08-21-2023 ambulatory DO Angella Jessika Mccallum Facility:[facility] Start: 08-21-2023 End: 08-21-2023 Patient encounter procedure Angella Mccallum [facility] Start: 02-26-2023 ambulatory Ms. Lennie Tracey Facility: Start: 02-26-2023 Office outpatient vi sit 25 minutes Lennie Tracey Work Phone: [facility] 250 DO Work Phone: Start: 02-20-2023 End: 02-20-2023 Patient encounter procedure Lennie TRACEY [facility] Start: 12-25-2022 Rx Renewal Lennie Tracey Work Phone: [facility] 250 DO Work Phone: Start: 12-24-2022 End: 12-24-2022 Patient encounter procedure Gina Perrin [facility] Start: 11-29-2022 End: 11-29-2022 Patient encounter procedure Gina Perrin [facility] Start: 11-19-2022 End: 11-20-2022 Pre-admission assessment Gina Perrin [facility] Start: 11-09-2022 Evaluation and manag ement of inpatient [facility] Start: 11-08-2022 Evaluation and manag ement of inpatient [facility] Start: 11-08-2022 End: 11-10-2022 Evaluation and management of inpatient GINA PERRIN [facility] Start: 11-08-2022 End: 11-08-2022 Emergency department patient visit Raffy Hernandez [facility] Start: 11-05-2022 End: 11-05-2022 Patient encounter procedure Nhan Roca [facility] Start: 10-24-2022 End: 10-24-2022 Patient encounter procedure Lennie LOGANLAUREL [facility] Start: 02-21-2022 Office outpatient vi sit 25 minutes Lenniekeya Tracey Work Phone: [facility] 600 DO Work Phone: Start: 01-30-2022 ambulatory Ms. Lennie Tracey Facility:[id number] Start: 01-26-2022 ambulatory Ms. Lennie Tracey Facility:[id number] Start: 01-17-2022 Office outpatient vi sit 25 minutes Lenniekeya Tracey Work Phone: [facility] 600 DO Work Phone: Start: 12-22-2021 Chart Update Lennie Tracey Work Phone: [facility] 250 DO Work Phone: Start: 12-19-2021 ambulatory Ms. Lennie Tracey Facility:[id number] Start: 12-19-2021 Patient encounter procedure Lenniekeya Tracey Work Phone: [facility] [facility] [place] Work Phone: Start: 11-20-2021 Office outpatient vi sit 25 minutes Lennie E Robuck Work Phone: [facility] 600 DO Work Phone: Procedures Date Procedure Procedure Detail Performing Clinician Start: 12-19-2021 Echocardiography Lennie Tracey Work Phone: Start: 05-24-2014 Right kknee arthrosc opy with partial medial meniscectomy, chondroplasy all 3 compartments Lennie TRACEY cardiac stents Lennie TRACEY Excision of basal ce ll carcinoma Lennie Tracey Work Phone: Comment on above: ON BACK; Excision of basal ce ll carcinoma Nhan Roca Comment on above: Outside Source Comme nt: Comment on above: ON BACK; Nasal sinus procedure Lennie Tracey Work Phone: Nasal sinus procedure Nhan valentine Operative procedure on knee Lennie Tracey Work Phone: Percutaneous translu maite coronary angioplasty Lennie Tracey Work Phone: Percutaneous translu maite coronary angioplasty Nhan Roca 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 Lennie Tracey Work Phone: STONE BASKET FOR KID VI STONE Lennie TRACEY Plan of Treatment Date Care Activity Detail Author Start: 05-05-2024 End: 05-05-2024 Patient encounter procedure 05/05/2024 9:20 AM EST Office Visit [facility] [place] [id number] Bryan Saunders, DPM [facility] [address] [facility] [place] [place] [address] [facility] Start: 04-08-2024 End: 04-08-2024 Patient encounter procedure 04/08/2024 9:10 AM EDT Office Visit [facility] [place] [id number] Bryan Saunders, DPM FACFAS [address] [place] [address] [facility] Start: 04-01-2024 End: 04-01-2024 Clinical Support 04/01/2024 8:50 AM EDT Clinical Support [facility] [address] [place] [id number] Bryan Saunders, DPM FACFAS [address] [place] [address] [facility] Start: 03-01-2024 Influenza vaccination Influenza Vacc ine (#1) [facility] Start: 02-25-2024 FUV, Provider: Wilder Lang, Status: Pen, Time: 9:10 AM FUV, Provider: Wilder Lang, Status: Pen, Time: 9:10 [facility] Work Phone: Start: 02-26-2023 FUV, Provider: Wilder Lang, Status: Pen, Time: 9:50 AM FUV, Provider: Wilder Lang, Status: Pen, Time: 9:50 AM [facility]: Start: 02-21-2022 FUV, Provider: Wilder Lang, Status: Pen, Time: 10:50 AM FUV, Provider: Wilder Lang, Status: Pen, Time: 10:50 AM [facility] Work Phone: Start: 01-30-2022 REST ONLY, Provider: YAZAN [facility] NUCLEAR 01,[id number], Status: Pen, Time: 12:30 PM REST ONLY, Provider: YAZAN [facility] NUCLEAR 01,[id number], Status: Pen, Time: 12:30 PM [facility] Work Phone: Start: 01-26-2022 STRESSNUC2, Provider : YAZAN [facility] NUCLEAR 01,[id number], Status: Pen, Time: 10:00 AM STRESSNUC2, Provider: YAZAN [facility] NUCLEAR 01,[id number], Status: Pen, Time: 10:00 AM [facility] 600 DO Work Phone: Start: 01-17-2022 FUV, Provider: Wilder Lang, Status: Pen, Time: 10:00 AM FUV, Provider: Wilder Lang, Status: Pen, Time: 10:00 AM [facility] 600 DO Work Phone: Start: 12-19-2021 ECHO, Provider: MISHA GREWAL [facility] ULTRASOUND ,[id number], Status: Pen, Time: 12:30 PM ECHO, Provider: YAZAN [facility] ULTRASOUND 01,[id number], Status: Pen, Time: 12:30 PM [facility] 600 DO Work Phone: Start: 1965 Screening for malign ant neoplasm of colon [facility] Immunizations Immunization Date Immunization Notes Care Provider Fa candy 04-19-2023 influenza virus vacc ine, unspecified formulation [facility] 04-20-2022 SARS-CoV-2 (COVID-19 ) [id number] [facility] 03-20-2022 influenza virus vacc ine, unspecified formulation [facility] 07-28-2021 Pfizer-BioNTech COVI D-19 Vacc 30 MCG/0.3ML Intramuscular Suspension Lennie Tracey Work Phone: [facility] Comment on above: Series: 07-06-2021 influenza virus vacc ine, unspecified formulation [facility] 07-06-2021 Influenza, injectabl e, Madin Zakia Canine Kidney, preservative free, quadrivalent Lennie Tracey Work Phone: [facility] 600 DO Work Phone: 07-06-2021 Pfizer-BioNTech COVI D-19 Vacc 30 MCG/0.3ML Intramuscular Suspension; Translations: [Pfizer-BioNTech COVID-19 Vacc 30 MCG/0.3ML Intramuscular Suspension] Lennie Tracey Work Phone: [facility] Comment on above: Series: 05-19-2021 SARS-CoV-2 (COVID-19 ) mRNA-1273 vaccine [facility] 04-06-2021 influenza virus vacc ine, unspecified formulation Ang[facility] 11-05-2020 SARS-CoV-2 (COVID-19 ) mRNA-1273 vaccine [place] 10-11-2020 SARS-CoV-2 (COVID-19 ) mRNA-1273 vaccine Angella [facility] 03-14-2020 influenza virus vacc ine, unspecified formulation [place] [facility] 03-14-2020 pneumococcal polysaccharide vaccine, 23 valent [facility] 03-09-2020 zoster vaccine recombinant Angella [facility] 01-06-2020 zoster vaccine recombinant [place] [facility] 04-12-2019 influenza virus vacc ine, unspecified formulation Angella [facility] 05-05-2018 influenza virus vacc ine, unspecified formulation [place] [facility] 03-14-2018 influenza virus vacc ine, unspecified formulation Angella [facility] 03-27-2017 influenza virus vacc ine, unspecified formulation Angella [facility] 02-06-2017 tetanus toxoid, redu hilario diphtheria toxoid, and acellular pertussis vaccine, adsorbed [place] [facility] 05-07-2016 pneumococcal conjuga te vaccine, 13 valent [place] [facility] 03-31-2016 influenza virus vacc ine, unspecified formulation [place] 10-10-2015 tetanus toxoid, unspecified formulation [place] Comment on above: Result Comment: Rout e: Unknown Outside Source Comment: Comment on above: Early/Late Reason: Nursing Judgment 10-10-2015 tetanus toxoid, redu hilario diphtheria toxoid, and acellular pertussis vaccine, adsorbed Lennie ROBLAUREL [facility] Comment on above: Early/Late Reason: N ursing Judgment 04-16-2015 influenza virus vacc ine, unspecified formulation Angella [facility] 03-01-2013 influenza virus vacc ine, unspecified formulation Lennie Tracey Work Phone: [facility] 600 DO Work Phone: 07-01-2012 pneumococcal conjuga te vaccine, 13 valent [place] [facility] Comment on above: Result Comment: Rout e: Unknown 07-01-2012 pneumococcal polysaccharide vaccine, 23 valent Lennie E Robuck Work Phone: [facility] 600 DO Work Phone: 05-04-2011 influenza virus vacc ine, unspecified formulation Angella [facility] 05-04-2011 influenza, seasonal, injectable Lennie E Robuck Work Phone: [facility] 600 DO Work Phone: influenza virus vacc ine, unspecified formulation Lennie E Robuck Work Phone: [facility] 600 DO Work Phone: Comment on above: 2010 2006 Payers Date Payer Category Payer Private Health Insurance [facility] [id number] 2015-Present [address] [place] [address] [id number] 2015 Unknown [id number] 1965 Unknown [id number]. 8 1965 Unknown [id number] [id number]. 8 1965 Unknown [id number] [id number]. 1068 1965 Unknown [id number] [id number]. 356 1965 Unknown [id number] [id number]. 727 1965 Unknown [id number] [id number]. 727 1965 Unknown [id number] [id number]. 727 1965 Unknown [id number] [id number]. 1259 1965 Unknown [id number] [id number]. 1259 1965 Unknown [id number] [id number]. 1259 1965 Unknown [id number] [id number]. 1259 1965 Unknown [id number] [id number]. 1259 Private Health Insurance [id number] Unknown Social History Date Type Detail Facility Start: 03-03-2024 End: 03-17-2024 Rarely consumes alcohol Rarely consumes alcohol [facility] 600 DO Work Phone: Comment on above: 1 CUP COFFEE OCCASIO MIGUEL - 1 CAN SODA OCCASIONALLY; Quit: 09/2013 ( 2-3 P PD ); Start: 10-24-2022 End: 03-03-2024 Tobacco smoking status Ex-smoker (finding) [facility] Tobacco smoking status Never [facility] Start: 03-03-2024 End: 03-17-2024 Sex Assigned At Male [facility] Start: 02-19-2024 Tobacco smoking status Never s moked tobacco (finding) [facility] History of tobacco use Current smoker [facility] History of tobacco use Cigarette Smoker [facility] Start: 03-03-2024 Tobacco use and exposure Former smokeless tobacco user [facility] History of tobacco use Snuff User [facility] History of tobacco use Chews Tobacco [facility] Start: 03-03-2024 End: 03-17-2024 Alcoholic beverage intake Current drinker of alcohol (finding) [facility] Start: 03-03-2024 Alcohol Comment Only on occasion [facility] Start: 1965 Sex assigned at Male [facility] Start: 02-26-2024 Gender identity Identifies as male gender (finding) [facility] Start: 02-26-2024 Sexual orientation Heterosexual (atif guerrier) [facility] Functional Status Date Assessment Result Facility 08-21-2023 Functional Status N/A [facility] 12-24-2022 Functional Status No [facility] 11-08-2022 Functional Status N/A [facility] 10-24-2022 Functional Status No [facility] Clinical Notes 01-18-2012 to 04-08-2024 Bryan Saunders DPM FACFAS - 04/08/2024 9:10 AM EDTMarc Tong Saunders, JORGE FACFAS - 04/01/2024 8:50 AM EDTMarc Tong Saunders, JORGE FACFAS - 03/17/2024 9:40 AM EDTLaboratory Note Date & Type Note Facility 04-08-2024 History of Present illness Narrative Images from the original note were not included. Patient: Lizzy Gonsalo Kelly Jr : 1965 PCP: [facility] Provider MD Julia SUBJECTIVE This is a 58 y.o. male that presents for follow-up swelling about the right leg and erythema as a small wound at the anterior aspect of the right leg secondary to venous stasis disease. He would Unna boot applied last visit and wound debridement the wound has completely healed he does suffer from significant +2 pitting edema to bilateral lower extremity secondary to severe venous stasis disease. His primary care physician has placed him on diuretics but has not helped. He has attempt compression stockings in the past and does elevated times but he does not wear them regularly. Allergies: No Known Allergies Past Medical History: Past Medical History: Diagnosis Date Ankle sprain Fracture of hand Heart disease Knee sprain Tear of meniscus of knee Tibia/fibula fracture Medications: Current Outpatient Medications: albuterol HFA 90 mcg/act inhaler, Inhale 2 puffs every 4 (four) hours if needed for wheezing, Disp: , Rfl: furosemide (Lasix) 20 MG tablet, Take 20 mg by mouth Daily, Disp: , Rfl: KLOR-CON 20 MEQ ER tablet, Take 20 mEq by mouth Daily, Disp: , Rfl: lisinopril 10 MG tablet, Take 10 mg by mouth, Disp: , Rfl: rosuvastatin (Crestor) 10 MG tablet, Take 10 mg by mouth at bedtime, Disp: , Rfl: Review of systems: Constitutional: Denies fever, chills, nausea, vomiting GI: Denies abdominal pain, cramping, loose stool, gastric ulcers Musculoskeletal: Denies low back pain, knee pain, systemic arthritis Neurologic: Denies burning, tingling, transient paralysis OBJECTIVE Physical Examination: DERM: Positive hair growth to b/l feet with good skin turgor noted. Negative openings in skin the significant venous stasis disease noted to the right leg with No erythema noted. Wound is completely resolved still has +2 pitting edema to bilateral lower extremities right greater left multiple varicosities noted mild dependent rubor noted. VASC: DP /PT were palpable bilateral. Capillary refill time < 3 seconds Digits 1-5 bilateral NEURO: [place] Shara 5.07 monofilament was intact B/L. Vibratory sensation was intact B/L Musculoskeletal: Muscle strength was +5 over 5 all intrinsic and extrinsic muscles tested. ASSESSMENT 1. Venous insufficiency (chronic) (peripheral) 2. Cellulitis of right leg PLAN I Educated the patient on venous stasis disease as well as his wound at the anterior lateral aspect of the right leg Wound has resolved. I discussed the etiology of venous disease I recommended referral to a vein specialist for evaluation of the lower extremity vein disease. I did recommended compression stockings as well as elevation on a regular basis he is to continue with the diuretics. I referral was placed Dr. Meza at the [facility]. JORGE Leonardo documented in this encounter [facility] 04-01-2024 History of Present illness Narrative Images from the original note were not included. Patient: Lizzy Kelly : 1965 PCP: [facility] Provider MD Julia SUBJECTIVE This is a 58 y.o. male that presents today with a chief complaint of painful lateral aspect of the left foot. The pain is located laterally at the level of the subtalar joint. He had a cortisone injection last visit which helped significantly no pain able to walk perform activities of daily living. He is developed significant swelling about the right leg and erythema as a small wound at the anterior aspect of the right leg secondary to venous stasis disease Allergies: No Known Allergies Past Medical History: Past Medical History: Diagnosis Date Ankle sprain Fracture of hand Heart disease Knee sprain Tear of meniscus of knee Tibia/fibula fracture Medications: Current Outpatient Medications: albuterol HFA 90 mcg/act inhaler, Inhale 2 puffs every 4 (four) hours if needed for wheezing, Disp: , Rfl: furosemide (Lasix) 20 MG tablet, Take 20 mg by mouth Daily, Disp: , Rfl: KLOR-CON 20 MEQ ER tablet, Take 20 mEq by mouth Daily, Disp: , Rfl: lisinopril 10 MG tablet, Take 10 mg by mouth, Disp: , Rfl: rosuvastatin (Crestor) 10 MG tablet, Take 10 mg by mouth at bedtime, Disp: , Rfl: Review of systems: Constitutional: Denies fever, chills, nausea, vomiting GI: Denies abdominal pain, cramping, loose stool, gastric ulcers Musculoskeletal: Denies low back pain, knee pain, systemic arthritis Neurologic: Denies burning, tingling, transient paralysis OBJECTIVE Physical Examination: DERM: Positive hair growth to b/l feet with good skin turgor noted. Negative openings in skin the significant venous stasis disease noted to the right leg with mild erythema noted. Small wound measuring 1 cm x 0.5 cm x 4 mm level subcutaneous tissue 80 percent fibrotic 20 percent granular ascending cellulitis or lymphangitis noted. VASC: DP /PT were palpable bilateral. Capillary refill time < 3 seconds Digits 1-5 bilateral NEURO: [place] Shara 5.07 monofilament was intact B/L. Vibratory sensation was intact B/L Musculoskeletal: Muscle strength was +5 over 5 all intrinsic and extrinsic muscles tested. There is no pain with direct palpation of the sinus tarsi pain with range of motion of the subtalar joint. Mild swelling noted over the sinus tarsi region. There is mild tenderness noted over the ATF and CF ligament left foot. Unable to elicit an anterior drawer test secondary to guarding. No crepitus noted with range of motion of the ankle or subtalar joint. Patient has a mild gastrocnemius-soleus equinus with mild tenderness noted at the level of the Achilles tendon. No palpable deficits noted within the Achilles tendon. No pain with range of motion of the ankle or subtalar joint. ASSESSMENT 1. Other synovitis and tenosynovitis, left ankle and foot 2. Left ankle pain, unspecified chronicity 3. Venous insufficiency (chronic) (peripheral) 4. Chronic ulcer of right leg with fat layer exposed (CMS/HCC) 5. Cellulitis of right leg PLAN The patient was educated on the etiology of sinus tarsi syndrome as well as capsulitis of the subtalar joint. He is doing significantly better. Educated the patient on venous stasis disease as well as his wound at the anterior lateral aspect of the right leg and debrided the wound follow up of the subcutaneous tissue via sharp debridement. Copiously lavaged sterile saline applied topical Silvadene and a multilayer compressive Unna boot he will follow up me in 1 week for dressing change. Compression was utilized for hemostasis anesthetic was necessary JORGE Leonardo documented in this encounter [facility] 03-17-2024 History of Present illness Narrative Images from the original note were not included. Patient: Lizzy Gonsalo Kelly Jr : 1965 PCP: [facility] Provider MD Julia SUBJECTIVE This is a 58 y.o. male that presents today with a chief complaint of painful lateral aspect of the left foot. The pain is located laterally at the level of the subtalar joint. They have noticed significant swelling and pain with ambulation. They deny history of trauma to the area. They have attempted numerous conservative therapies including shoe gear modifications anti-inflammatory medications rest ice and elevation to no avail. He had a cortisone injection last visit which did help but he is still having pain it is improved. Allergies: No Known Allergies Past Medical History: Past Medical History: Diagnosis Date Ankle sprain Fracture of hand Heart disease Knee sprain Tear of meniscus of knee Tibia/fibula fracture Medications: Current Outpatient Medications: albuterol HFA 90 mcg/act inhaler, Inhale 2 puffs every 4 (four) hours if needed for wheezing, Disp: , Rfl: furosemide (Lasix) 20 MG tablet, Take 20 mg by mouth Daily, Disp: , Rfl: KLOR-CON 20 MEQ ER tablet, Take 20 mEq by mouth Daily, Disp: , Rfl: lisinopril 10 MG tablet, Take 10 mg by mouth, Disp: , Rfl: rosuvastatin (Crestor) 10 MG tablet, Take 10 mg by mouth at bedtime, Disp: , Rfl: Review of systems: Constitutional: Denies fever, chills, nausea, vomiting GI: Denies abdominal pain, cramping, loose stool, gastric ulcers Musculoskeletal: Denies low back pain, knee pain, systemic arthritis Neurologic: Denies burning, tingling, transient paralysis OBJECTIVE Physical Examination: DERM: Positive hair growth to b/l feet with good skin turgor noted. Negative openings in skin VASC: DP /PT were palpable bilateral. Capillary refill time < 3 seconds Digits 1-5 bilateral NEURO: [place] Shara 5.07 monofilament was intact B/L. Vibratory sensation was intact B/L Musculoskeletal: Muscle strength was +5 over 5 all intrinsic and extrinsic muscles tested. There is Less pain with direct palpation of the sinus tarsi pain with range of motion of the subtalar joint. Mild swelling noted over the sinus tarsi region. There is mild tenderness noted over the ATF and CF ligament left foot. Unable to elicit an anterior drawer test secondary to guarding. No crepitus noted with range of motion of the ankle or subtalar joint. Patient has a mild gastrocnemius-soleus equinus with mild tenderness noted at the level of the Achilles tendon. No palpable deficits noted within the Achilles tendon. No pain with range of motion of the ankle or subtalar joint. Diagnostic ultrasound: Diagnostic ultrasound 12 megahertz linear probe Hypoechoic capsulitis of the sinus tarsi region. With significant fluid collection noted within the subtalar joint and within the joint capsule of the subtalar joint. Unable to visualize the interosseous talocalcaneal ligament ASSESSMENT 1. Other synovitis and tenosynovitis, left ankle and foot 2. Sinus tarsi syndrome, left 3. Other enthesopathy of left foot and ankle [M77.52] PLAN The patient was educated on the etiology of sinus tarsi syndrome as well as capsulitis of the subtalar joint. They are also instructed on rest and icing the on a regular basis as well. They are educated on the diagnostic ultrasound findings as well. The patient was given a 2nd injection consisting of 1 cc of 2% lidocaine plain and 1 cc of Kenalog 10 via ultrasonic guidance into the subtalar joint capsule left foot. Ultrasound was necessary to ensure exact placement into the bursa /capsule. He will continue rest ice and elevate and follow up with me in 2 weeks for reassessment he was made a 50 percent improvement since his last examination. JORGE Leonardo documented in this encounter [facility] 08-21-2023 Evaluation + Plan note Future Scheduled TestsCBC w/ Auto Diff 08/21/23Comprehensive Metabolic Panel 08/21/23Lipid Panel 08/21/23 [facility] 08-21-2023 Hospital Discharge instructions Follow Up Care 08/21/2023 10:45:14 With:Lennie TRACEY CNP Address: [address] [place] [address]- When:Within 6 Month(s) [facility] 08-21-2023 Hospital Discharge instructions Patient Education 08/21/2023 08:09:13 Angina Angina Angina is discomfort in the chest, neck, arm, jaw, or back. The discomfort is caused by a lack of blood in the middle layer of the heart wall (myocardium). There are four types of angina: Stable angina. This is triggered by vigorous activity or exercise. It goes away when you rest or take medicines that treat angina. This is diagnosed if you have had the symptom for more than 2 months. Unstable angina. This is a warning sign and can lead to a heart attack. This is a medical emergency. Symptoms come at rest and last a long time. Microvascular angina. This affects the small coronary arteries. Symptoms include chest pain, feeling tired, and being short of breath. The symptoms can last a long time or short time. Prinzmetal or variant angina. This is caused by a spasm of the arteries that go to your heart. What are the causes? This condition is usually caused by atherosclerosis. This is the buildup of fat and cholesterol (plaque) in your arteries. The plaque may narrow or block the artery. Other causes of angina include: Sudden spasms of the muscles of the arteries in the heart. Small artery disease (microvascular dysfunction). Problems with any of your heart valves. A tear in an artery in your heart (coronary artery dissection). Weakness of the heart muscle (cardiomyopathy). What increases the risk? You are more likely to develop this condition if you have: High cholesterol. High blood pressure. Diabetes. A family history of heart disease. A sedentary lifestyle, or a lifestyle in which you do not exercise enough. Depression. Had radiation treatment to the left side of your chest. Other risk factors include: Using tobacco. Being obese. Eating a diet high in saturated fats. Being exposed to high stress or triggers of stress. Using drugs, such as cocaine. Women have a greater risk for angina if they: Are older than age 55. Have gone through menopause. What are the signs or symptoms? Common symptoms of this condition in both men and women may include: Chest pain, which may: ?Feel like a crushing or squeezing in the chest, or a tightness, pressure, fullness, or heaviness in the chest. ?Last for more than a few minutes, or stop and come back over a few minutes. Pain in the neck, arm, jaw, or back. Unexplained heartburn or indigestion. Shortness of breath. Nausea. Sudden cold sweats. Women and people with diabetes may have unusual (atypical) symptoms, such as: Fatigue. Unexplained feelings of nervousness or anxiety. Unexplained weakness. Dizziness or fainting. How is this diagnosed? This condition may be diagnosed based on: Your symptoms and medical history. Electrocardiogram (ECG) to measure the electrical activity in your heart. Blood tests. Stress test to look for signs of blockage when your heart is stressed. CT angiogram to examine your heart and the blood flow to it. Coronary angiogram to check for arterial blockage. Echocardiogram (ultrasound) to assess the strength of your heartbeat. How is this treated? Angina may be treated with: Medicines to: ?Prevent blood clots and heart attack. ?Relax blood vessels and improve blood flow to the heart. ?Reduce blood pressure, improve heart pumping, and relax blood vessels spasms. ?Reduce cholesterol and help treat atherosclerosis. A procedure to widen a narrowed or blocked coronary artery (angioplasty). A mesh tube (stent) may be placed in a coronary artery to keep it open. Surgery to allow blood to go around a blocked artery (coronary artery bypass surgery). Follow these instructions at home: Medicines Take npgp-mfr-uyualyb and prescription medicines only as told by your health care provider. Do not take the following medicines unless your health care provider approves: ?NSAIDs, such as ibuprofen or naproxen. ?Vitamin supplements that contain vitamin A, vitamin E, or both. ?Hormone replacement therapy that contains estrogen with or without progestin. Eating and drinking Eat a heart-healthy diet. This includes plenty of fresh fruits and vegetables, whole grains, low-fat (lean) protein, and low-fat dairy products. Follow instructions from your health care provider about eating or drinking restrictions. Activity Follow an exercise program approved by your health care provider. Consider joining a cardiac rehabilitation program. Take a break when you feel fatigued. Plan rest periods in your daily activities. Lifestyle Do not use any products that contain nicotine or tobacco. These products include cigarettes, chewing tobacco, and vaping devices, such as e-cigarettes. If you need help quitting, ask your health care provider. If your health care provider says you can drink alcohol: ?Limit how much you have to: ?0 1 drink a day for women who are not . ?0 2 drinks a day for men. ?Be aware of how much alcohol is in your drink. In the [place] one drink equals one 12 oz bottle of beer (355 mL), one 5 oz glass of wine (148 mL), or one 1 oz glass of hard liquor (44 mL). General instructions Maintain a healthy weight. Learn to manage stress. Keep your vaccinations up to date. Get the flu (influenza) vaccine every year. Talk to your health care provider if you feel depressed. Take a depression screening test to see if you are at risk for depression. Work with your health care provider to manage other health conditions, such as hypertension or diabetes. Keep all follow-up visits. This is important. Get help right away if: You have pain in your chest, neck, arm, jaw, or back, and the pain: ?Lasts more than a few minutes. ?Is recurring. ?Is not relieved by taking medicines under the tongue (sublingual nitroglycerin). ?Increases in intensity or frequency. You have a lot of sweating without cause. You have unexplained: ?Heartburn or indigestion. ?Shortness of breath or difficulty breathing. ?Nausea or vomiting. ?Fatigue. ?Feelings of nervousness or anxiety. ?Weakness. You have sudden light-headedness or dizziness. You faint. These symptoms may represent a serious problem that is an emergency. Do not wait to see if the symptoms will go away. Get medical help right away. Call your local emergency services (431 in the [place] Do not drive yourself to the hospital. Summary Angina is discomfort in the chest, neck, arm, jaw, or back that is caused by a lack of blood in the arteries of the heart wall. There are many symptoms of angina. They include chest pain, unexplained heartburn or indigestion, sudden cold sweats, and fatigue. Angina may be treated with lifestyle changes, medicines, or surgery. Symptoms of angina may represent an emergency. Get medical help right away. Call your local emergency services (911 in the [place] Do not drive yourself to the hospital. This information is not intended to replace advice given to you by your health care provider. Make sure you discuss any questions you have with your health care provider. Document Revised: 12/09/2020 Document Reviewed: 12/09/2020 [employer] Patient Education 2022 picsell. Follow Up Care 02/20/2023 10:49:13 With:Angella Mccallum DO, [facility] Address: When:Within 6 Month(s) Comments:schedule a wellness exam [facility] 02-20-2023 Hospital Discharge instructions Patient Education 02/20/2023 10:33:15 Obesity, Adult, [id number] Obesity, Adult Obesity is having too much body fat. Being obese means that your weight is more than what is healthy for you. BMI (body mass index) is a number that explains how much body fat you have. If you have a BMI of 30 or more, you are obese. Obesity can cause serious health problems, such as: Stroke. Coronary artery disease (CAD). Type 2 diabetes. Some types of cancer. High blood pressure (hypertension). High cholesterol. Gallbladder stones. Obesity can also contribute to: Osteoarthritis. Sleep apnea. Infertility problems. What are the causes? Eating meals each day that are high in calories, sugar, and fat. Drinking a lot of drinks that have sugar in them. Being born with genes that may make you more likely to become obese. Having a medical condition that causes obesity. Taking certain medicines. Sitting a lot (having a sedentary lifestyle). Not getting enough sleep. What increases the risk? Having a family history of obesity. Living in an area with limited access to: ?[place], recreation centers, or sidewalks. ?Healthy food choices, such as grocery stores and [place]. What are the signs or symptoms? The main sign is having too much body fat. How is this treated? Treatment for this condition often includes changing your lifestyle. Treatment may include: Changing your diet. This may include making a healthy meal plan. Exercise. This may include activity that causes your heart to beat faster (aerobic exercise) and strength training. Work with your doctor to design a program that works for you. Medicine to help you lose weight. This may be used if you are not able to lose one pound a week after 6 weeks of healthy eating and more exercise. Treating conditions that cause the obesity. Surgery. Options may include gastric banding and gastric bypass. This may be done if: ?Other treatments have not helped to improve your condition. ?You have a BMI of 40 or higher. ?You have life-threatening health problems related to obesity. Follow these instructions at home: Eating and drinking Follow advice from your doctor about what to eat and drink. Your doctor may tell you to: ?Limit fast food, sweets, and processed snack foods. ?Choose low-fat options. For example, choose low-fat milk instead of whole milk. ?Eat five or more servings of fruits or vegetables each day. ?Eat at home more often. This gives you more control over what you eat. ?Choose healthy foods when you eat out. ?Learn to read food labels. This will help you learn how much food is in one serving. ?Keep low-fat snacks available. ?Avoid drinks that have a lot of sugar in them. These include soda, fruit juice, iced tea with sugar, and flavored milk. Drink enough water to keep your pee (urine) pale yellow. Do not go on fad diets. Physical activity Exercise often, as told by your doctor. Most adults should get up to 150 minutes of moderate-intensity exercise every week.Ask your doctor: ?What types of exercise are safe for you. ?How often you should exercise. Warm up and stretch before being active. Do slow stretching after being active (cool down). Rest between times of being active. Lifestyle Work with your doctor and a food expert (dietitian) to set a weight-loss goal that is best for you. Limit your screen time. Find ways to reward yourself that do not involve food. Do not drink alcohol if: ?Your doctor tells you not to drink. ?You are , may be , or are planning to become . If you drink alcohol: ?Limit how much you have to: ?0 1 drink a day for women. ?0 2 drinks a day for men. ?Know how much alcohol is in your drink. In the [place] one drink equals one 12 oz bottle of beer (355 mL), one 5 oz glass of wine (148 mL), or one 1 oz glass of hard liquor (44 mL). General instructions Keep a weight-loss journal. This can help you keep track of: ?The food that you eat. ?How much exercise you get. Take wsgd-khg-dxdxwlk and prescription medicines only as told by your doctor. Take vitamins and supplements only as told by your doctor. Think about joining a support group. Pay attention to your mental health as obesity can lead to depression or self esteem issues. Keep all follow-up visits. Contact a doctor if: You cannot meet your weight-loss goal after you have changed your diet and lifestyle for 6 weeks. You are having trouble breathing. Summary Obesity is having too much body fat. Being obese means that your weight is more than what is healthy for you. Work with your doctor to set a weight-loss goal. Get regular exercise as told by your doctor. This information is not intended to replace advice given to you by your health care provider. Make sure you discuss any questions you have with your health care provider. Document Revised: 01/23/2022 Document Reviewed: 01/23/2022 [employer] Patient Education 2022 picsell. Follow Up Care 11/21/2022 09:51:50 With:Lennie TRACEY CNP Address: [address] [place], [place] [id number]- When:Within 6 Month(s) [facility] 11-10-2022 Note Subjective POD 1, pt had no acute events overnight. Alert and awake, kulkarni and art line removed, pt tolerating diet. Reports mild pain to groin sites. Objective No data found. Physical Exam Vitals reviewed. Constitutional: Appearance: Normal appearance. HENT: Head: Normocephalic and atraumatic. Cardiovascular: Rate and Rhythm: Normal rate. Pulmonary: Effort: Pulmonary effort is normal. Skin: General: Skin is warm and dry. Comments: Groin sites soft and dressings dry and intact bilatereally Neurological: General: No focal deficit present. Mental Status: He is alert and oriented to person, place, and time. Mental status is at baseline. Psychiatric: Mood and Affect: Mood normal. Lab Results Component Value Date NA 135 (L) 11/10/2022 K 4.4 11/10/2022 CL 106 11/10/2022 ANIONGAP 10 11/10/2022 BUN 16 11/10/2022 CREATININE 0.84 11/10/2022 CALCIUM 8.4 (L) 11/10/2022 MG 1.9 11/08/2022 PHOS 3.5 11/08/2022 No results found for: BILITOT, BILIDIR, ALKPHOS, AST, ALT, PROT, ALBUMIN Lab Results Component Value Date WBC 10.35 11/10/2022 RBC 4.48 11/10/2022 HGB 12.1 (L) 11/10/2022 HCT 38.7 (L) 11/10/2022 MCV 86.4 11/10/2022 MCH 27.0 11/10/2022 MCHC 31.3 (L) 11/10/2022 RDW 14.5 11/10/2022 NEUTOPHILPCT 48.0 11/08/2022 LYMPHOPCT 33.6 11/08/2022 MONOPCT 14.0 (H) 11/08/2022 EOSPCT 3.4 11/08/2022 BASOPCT 0.5 11/08/2022 NEUTROABS 2.67 11/08/2022 LYMPHSABS 1.87 11/08/2022 MONOSABS 0.78 11/08/2022 EOSABS 0.19 11/08/2022 BASOSABS 0.03 11/08/2022 PLT 161 11/10/2022 NRBC 0.0 11/08/2022 No results found for this or any previous visit from the past 1 day. Nutrition Screen Assessment/Plan Active Problems: There are no active Hospital Problems. #AAA #EVAR Tolerated diet Keep groin sites dry and may remove dressing in 48 hours Plan to discharge home with Follow up at [facility] with Dr. 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 No Patient's goal for discharge Home Does the patient need discharge transport arranged? No ( providing transport) Met with patient at bedside for assessment. Patient comes from home with , parents, and 3 grandkids. Patient uses a CPAP machine at home and has no history of SNF/IPR/HHC. Patient declines needing anything at discharge and states his will provide transport. Patient lives about 2 hours away from the hospital so will be on her way soon. Suspect home no needs. OTM to follow up if needs arise. [facility] 11-09-2022 Note Patient: Lizzy Painter sage Jr. Procedure Summary Date: 11/09/22 Room / Location: [address] / [facility] Operating Room Anesthesia Start: 908 Anesthesia Stop: 1113 Procedures: PERCUTANEOUS ACCESS AND CLOSURE OF FEMORAL ARTERY PLACEMENT OF AORTA-BIILLIAC ENDOGRAFT TRANS CATH DELIVERY OF ENHANCED FIXATION DEVICE Aorta angiogram Diagnosis: AAA (abdominal aortic aneurysm) without rupture (CMS/HCC) (AAA (abdominal aortic aneurysm) without rupture (CMS/HCC) [I71.40]) Surgeons: Gina Perrin MD Responsible Provider: Madiha Sampson MD Anesthesia Type: general ASA Status: 4 Anesthesia Type: general Vitals Value Taken Time BP acceptable 11/09/22 1539 Temp 36.3 ???C (97.3 ???F) 11/09/22 1208 Pulse 64 11/09/22 1208 Resp 18 11/09/22 1208 SpO2 96 % 11/09/22 1208 Anesthesia Post Evaluation Patient location during evaluation: PACU Patient participation: complete - patient participated Level of consciousness: awake and awake and alert Pain management: adequate Airway patency: patent Two or more strategies used to mitigate risk of obstructive sleep apnea Cardiovascular status: acceptable Respiratory status: acceptable Hydration status: acceptable Patient is hemodynamically stable and is able to be discharged from PACU per anesthesia protocol. No notable events documented. [facility] 11-09-2022 Note Airway Date/Time: 11/09/2022 9:20 AM Urgency: elective General Information and Staff Patient location during procedure: OR Anesthesiologist: Madiha Sampson MD Resident/CITY CARRIER/CAA: Charlie Huynh MD Performed: resident/CITY CARRIER/CAA and other anesthesia staff Learner assisted: VELASQUEZ Medical Student Indications and Patient Condition Indications for airway management: anesthesia Spontaneous Ventilation: absent Sedation level: deep Preoxygenated: yes Mask difficulty assessment: 3 - difficult mask (inadequate, unstable or two providers) +/- NMBA Final Airway Details Final airway type: endotracheal airway Successful airway: ETT Cuffed: yes Successful intubation technique: video laryngoscopy Facilitating devices/methods: intubating stylet Endotracheal tube insertion site: oral Blade: Cullen Blade size: #3 ETT size (mm): 8.0 Cormack-Lehane Classification: grade I - full view of glottis Placement verified by: chest auscultation and capnometry Measured from: lips ETT to lips (cm): 22 Number of attempts at approach: 1 Number of other approaches attempted: 0 [facility] 11-09-2022 Note Arterial Line: Date/Time: 11/09/2022 8:46 AM An arterial line was placed in the pre-op for the following indication(s): continuous blood pressure monitoring and blood sampling needed. A 20 gauge (size), 1 and 3/4 inch (length), Arrow (type) catheter was placed, into the Left radial artery, secured by tape, Tegaderm and Biodisc/Biopatch. Events: patient tolerated procedure well with no complications. Medications Administered Midazolam (VERSED) IV, 2 mg lidocaine (XYLOCAINE) 1 % SubQ, 2 mL Staffing Performed: resident/FREDRICK/SHAZIA Anesthesiologist: Maidha Sampson MD Resident/CITY CARRIER: Charlie Huynh MD [facility] 11-09-2022 Note Patient: Lizzy Brush Biankasean sage Jr. Procedure Information Date/Time: 11/09/22 0830 Procedure: REPAIR, AAA, ENDOVASCULAR Location: [facility] OR [address] [facility] / [facility] Operating Room Surgeons: Gina Perrin MD Relevant Problems Anesthesia Uses CPAP at night (+) YAMILKA (obstructive sleep apnea) Cardio 3 Stents placed 20+ years ago (+) AAA (abdominal aortic aneurysm) without rupture (CMS/HCC) (+) CAD (coronary artery disease) (+) HTN (hypertension) Pulmonary Former smoker, quit 10 years ago Endocrine/Metabolic (+) Morbid obesity (CMS/HCC) Clinical information reviewed: Allergies Meds Past Surgical History: Procedure Laterality Date ??? CARDIAC CATHETERIZATION ??? CORONARY STENT PLACEMENT ??? MENISCECTOMY ??? NASAL SEPTUM SURGERY No Known Allergies Estimated Date of Delivery: None noted. Scheduled Meds:[MAR Hold] ceFAZolin, 2 g, intravenous, Once Continuous Infusions:heparin, 0-28 Units/kg/hr, Last Rate: 18 Units/kg/hr (11/09/22 0607) lactated Ringer's, 75 mL/hr, Last Rate: 75 mL/hr (11/09/22 0555) PRN Meds:.PRN medications: [MAR Hold] heparin (porcine), [MAR Hold] hydrALAZINE, [MAR Hold] labetaloL, [MAR Hold] ondansetron ODT OR [MAR Hold] ondansetron, Insert peripheral IV AND Saline lock IV AND [MAR Hold] sodium chloride BP 131/71 Pulse 61 Temp 36.1 ???C (97 ???F) (Temporal) Resp 18 Ht 1.82 m (5' 11.65 ) Wt (!) 155 kg (341 lb 11.4 oz) SpO2 97% BMI 46.79 kg/m??? Results from last 7 days Lab Units 11/09/22 0537 WBC AUTO 10*3/uL 4.76 HEMOGLOBIN g/dL 12.6* HEMATOCRIT % 40.5 PLATELETS AUTO 10*3/uL 147* Results from last 7 days Lab Units 11/09/22 0537 SODIUM mmol/L 138 POTASSIUM mmol/L 4.1 CHLORIDE mmol/L 108* CO2 mmol/L 23 BUN mg/dL 19 CREATININE mg/dL 0.80 CALCIUM mg/dL 8.1* GLUCOSE mg/dL 100 Date of Last Liquid: 11/08/22 Date of Last Solid: 11/08/22 Time of Last Liquid: 2199 Time of Last Solid: 219 Physical Exam Airway Mallampati: II TM distance: >3 FB Neck ROM: full Cardiovascular - normal exam Rhythm: regular Rate: normal Dental Comments: Multiple missing teeth, denies loose teeth Pulmonary - normal exam Abdominal (+) obese Comments: Hernia Present Anesthesia Plan ASA 4 general (GETA with standard ASA monitoring with arterial line. ) The patient is not a current smoker. Patient was previously instructed to abstain from smoking on day of procedure. Patient did not smoke on day of procedure. intravenous induction Postoperative administration of opioids is intended. Trial extubation is planned. Anesthetic plan and risks discussed with patient. Use of blood products discussed with patient who consented to blood products. Plan discussed with attending. Additional Equipment Requests [facility] 11-09-2022 Note Attestation signed by Gina Perrin MD at 11/09/2022 8:39 AM I personally saw and examined the patient on the same date of service as resident/fellow . I discussed the findings and therapeutic plan with the resident/fellow . I agree with the documentation, except for any edits/updates below. Teaching Physician's Revisions: CHANDRAKANT today [facility] Vascular Surgery DAILY PROGRESS NOTE Subjective Patient is awake and alert. No acute events overnight. Confirmed NPO since midnight. Denies symptoms related to the AAA. Endorses history of CAD for which he had 3 stents placed 20+ years ago. He takes daily 81 mg Aspirin. Endorses a past smoking history (non-smoker for 10 years) and 80% of my original lung volume from [employer]-19 . He uses a CPAP at night and has a prescription for a home inhaler which he doesn't use. Denies any renal disease. Objective Vitals: Vitals: 11/09/22 0632 BP: 118/71 Pulse: 61 Resp: 16 Temp: SpO2: 96% No intake/output data recorded. I/O this shift: In: 784.7 [I.V.:784.7] Out: 350 [Urine:350] Physical Exam General Appearance: AAOx3, NAD Neck: trachea midline, no JVD Pulmonary: good respiratory effort on room air, no audible wheezing Cardiac: RRR Abdomen: soft, non-distended, non-tender, no guarding, no rebound tenderness Extremity: no edema bilateral upper and lower extremities Skin: warm and dry without rash Eyes: no scleral icterus Labs: Results from last 7 days Lab Units 11/09/22 0537 11/08/222035 WBC AUTO 10*3/uL 4.76 5.57 HEMOGLOBIN g/dL 12.6* 12.9* HEMATOCRIT % 40.5 40.2 PLATELETS AUTO 10*3/uL 147* 174 Results from last 7 days Lab Units 11/09/22 0537 11/08/222035 SODIUM mmol/L 138 140 POTASSIUM mmol/L 4.1 3.7 CO2 mmol/L 23 25 BUN mg/dL 19 25 CREATININE mg/dL 0.80 1.01 Results from last 7 days Lab Units 11/08/222035 INR 1.12* Medications: ceFAZolin, 2 g, intravenous, Once heparin, 0-28 Units/kg/hr, Last Rate: 18 Units/kg/hr (11/09/22 0607) lactated Ringer's, 75 mL/hr, Last Rate: 75 mL/hr (11/09/22 0555) Imaging: Electrocardiogram, 12-lead Normal sinus rhythm Inferior infarct , age undetermined Abnormal ECG No previous ECGs available Assessment/Plan Lizzy Kelly Jr. is a 57 y.o. male with a 7 cm AAA Echocardiogram this AM; appreciate cardiology recommendations OR today for endovascular aortic aneurysm repair; NPO except medications Karla Oconnor MD Vascular Surgery Resident, PGY-5 [facility] 11-08-2022 Hospital Discharge instructions Patient Education 11/08/2022 15:19:57 Abdominal Aortic Aneurysm Abdominal Aortic Aneurysm An abdominal aortic aneurysm (AAA) is an aneurysm that occurs in the lower part of the aorta. The aorta is the main artery of the body, and it supplies blood from the heart to the rest of the body. An aneurysm is a bulge in an artery. An aneurysm happens when blood pushes against a weakened or damaged artery wall. Most aneurysms do not cause symptoms, but some do cause problems. An AAA can cause two serious problems: It can enlarge and burst. It can cause blood to flow between the layers of the wall of the aorta through a tear (aortic dissection). These problems are medical emergencies. They can cause bleeding inside the body. If they are not diagnosed and treated right away, they can be life-threatening. What are the causes? The exact cause of this condition is not known. What increases the risk? The following factors may make you more likely to develop this condition: Being male and 60 years of age or older. Being of [place] descent. Using or having used nicotine or tobacco products. Having a family history of aneurysms. Having any of these conditions: ?Hardening of your arteries (arteriosclerosis). ?Inflammation of the de [place] of an artery (arteritis). ?Certain genetic conditions. ?Obesity. ?An infection in the wall of your aorta (infectious aortitis) caused by bacteria. ?High cholesterol. ?High blood pressure (hypertension). What are the signs or symptoms? Symptoms of this condition vary depending on the size of your aneurysm and how fast it is growing. Most aneurysms grow slowly and do not cause symptoms. When symptoms do occur, they may include: Severe pain in your abdomen, side, or lower back. Feeling full after eating only small amounts of food. Feeling a throbbing lump in your abdomen. Painful feet or toes, or discolored skin or sores on feet or toes. Constipation or trouble urinating. Symptoms of an AAA that has burst include: Severe pain in your abdomen, side, or back that comes on suddenly. Nausea or vomiting. Feeling light-headed or fainting. How is this diagnosed? This condition may be diagnosed with: A physical exam to check for throbbing and to listen to blood flow in your abdomen. Tests, such as: ?Ultrasound. ?X-rays. ?CT scan. ?MRI. ?Angiograms. These tests check your arteries for damage or blockage. Because most AAAs that have not burst do not cause symptoms, they are often found during exams for other conditions. How is this treated? Treatment for this condition depends on: The size of your aneurysm. How fast your aneurysm is growing. Your age. Risk factors for a burst AAA. If your aneurysm is smaller than 2 inches (5 cm), your health care provider may: Monitor it regularly to see if it is getting bigger. Depending on the size of the aneurysm, how fast it is growing, and your other risk factors, you may have an ultrasound to monitor it every 3 6 months, every year, or every few years. Give you medicines to control blood pressure, treat pain, or fight infection. If your aneurysm is larger than 2 inches (5 cm), your health care provider may repair it with surgery. Follow these instructions at home: Eating and drinking Eat a heart-healthy diet. This includes plenty of fresh fruits and vegetables, whole grains, low-fat (lean) protein, and low-fat dairy products. Avoid foods that are high in saturated fat and cholesterol, such as red meat and some dairy products. Lifestyle Do not use any products that contain nicotine or tobacco, such as cigarettes, e-cigarettes, and chewing tobacco. If you need help quitting, ask your health care provider. Stay physically active and exercise regularly. Talk with your health care provider about how often to exercise and which types of exercise are safe for you. Maintain a healthy weight. Alcohol use Do not drink alcohol if: ?Your health care provider tells you not to drink. ?You are , may be , or are planning to become . If you drink alcohol: ?Limit how much you use to: ?0 1 drink a day for women. ?0 2 drinks a day for men. ?Be aware of how much alcohol is in your drink. In the [place] one drink equals one 12 oz bottle of beer (355 mL), one 5 oz glass of wine (148 mL), or one 1 oz glass of hard liquor (44 mL). General instructions Take [id number] and prescription medicines only as told by your health care provider. Keep your blood pressure within a normal range. Check it regularly, and ask your health care provider what your target blood pressure should be. Have your blood sugar (glucose) level and cholesterol levels checked regularly. Follow instructions on how to keep levels within normal limits. Avoid heavy lifting and activities that take a lot of effort. Ask what activities are safe for you. If you can, learn your family's health history. Keep all follow-up visits as told by your health care provider. This is important. Contact a health care provider if you have: Pain in your abdomen, side, or back. Throbbing in your abdomen. A fever. Get help right away if: You have sudden, severe pain in your abdomen, side, or back. You experience nausea or vomiting. You feel light-headed or you faint. Your heart beats fast when you stand. You have sweaty, clammy skin. You have shortness of breath. You have constipation or trouble urinating. These symptoms may represent a serious problem that is an emergency. Do not wait to see if the symptoms will go away. Get medical help right away. Call your local emergency services (911 in the [place] Do not drive yourself to the hospital. Summary An aneurysm is a bulge in an artery. An abdominal aortic aneurysm (AAA) is an aneurysm in the lower part of the aorta. An AAA can cause bleeding inside the body, and it can be life-threatening. Risk can increase if you are male, age 60 or older, and of [place] descent, or if you have used nicotine or tobacco products and have a family history of aneurysms. Get help right away if you have symptoms of a burst AAA. This information is not intended to replace advice given to you by your health care provider. Make sure you discuss any questions you have with your health care provider. Document Revised: 04/01/2020 Document Reviewed: 04/01/2020 [employer] Patient Education 2022 picsell. Follow Up Care 11/08/2022 10:50:49 With:Proceed directly to the [facility] emergency department. Address:Unknown When:11/11/2022 15:19:30 [facility] 11-08-2022 Evaluation + Plan note Extrac ryan from: Title:ED Note Author:Raffy Hernandez DO Date: Abdominal aortic aneurysm (I 71.40: Abdominal aortic aneurysm, without rupture, unspecified) Orders: Automated Diff Basic Metabolic Panel CBC w/ Auto Diff CTA Abdomen and Pelvis CTA Chest ECG 12 Lead Adult ED Cardiac Monitoring eGFR Extra SST Tube Oxygen Saturation Oxygen Therapy PT & PTT Saline Lock Insert Transfer Patient Addendum by Raffy Hernandez DO on November 08, 2022 15:21:33 EDT No beds available. Patient to go ER to ER. I updated Dr. Giron, ED attending. Patient again declines EMS transport after discussion of the risks and benefits. Future Appointments Appointment Date:11/19/2022 11:30:00 AM Scheduled Provider:Gina Perrin MD [facility] Appointment Type:Vascular New Patient (FT) Appointment Date:11/21/2022 09:20:00 AM Scheduled Provider:Lennie TRACEY CNP Location:[facility] Appointment Type:[facility]04[facility]10[facility]2023 Hospital Discharge instructions Follow Up Care 10/08/2022 14:31:48 With:Lennie TRACEY CNP Address: [address] [place] [id number]- When:Within 1 Month(s) [facility] 07-20-2012 History of Present illness NarrativePatient returns in follow-up of problems as before. He continues to be short of breath. He states now he is also experiencing chest pain with exertion. This in addition to profound fatigue makes him worried that he is having recurrence of occlusive coronary atherosclerosis. He underwent angioplastyand stenting more than 10 years ago and has not been evaluated since. He and his are anxious in this regard despite his tobacco abstinence and satisfactory control of hypertension and hyperlipidemia he, and I, our concern regarding progression of coronary artery disease and because of this I recommend stress testing. Coronary angiography was discussed but I advised him that a stress test would be more appropriate and he concurs. He is not able to walk on the treadmill but will try. We suspect, though, that we will have to revert to a pharmacologic stress test because of his obesity deconditioning and also his significant shortness of breath with mild exertion. The merits of weight lossand dieting were discussed. He will follow-up with me after stress test results become available.[facility] 600 DO Work Phone: Evaluation + Plan note Future Appointments Appointment Date:11/21/2022 09:20:00 AM Scheduled Provider:Lennie TRACEY CNP Location:[facility] Appointment Type: Open Future Scheduled Tests Laboratory* PSA Screen, Total 10/24/22 * PSA Screen, Total 10/24/22 * Basic Metabolic Panel 10/24/22 * Basic Metabolic Panel 10/24/22 * Lipid Panel 10/24/22 * Lipid Panel 10/24/22 Radiology* US Abdominal Aorta screening for AAA 10/24/22 [facility] Evaluation + Plan note Future Appointments Appointment Date:11/21/2022 09:20:00 AM Scheduled Provider:Lennie TRACEY CNP Location:[facility] Appointment Type:[facility] [place] Evaluation + Plan note Future Appointments Appointment Date:11/21/2022 09:20:00 AM Scheduled Provider:Lennie TRACEY CNP Location:[facility] Appointment Type: Open Appointment Date:11/29/2022 10:00:00 AM Scheduled Provider: Location:.[facility] Appointment Type:CT Angio () Future Scheduled Tests Radiology* CTA Abdomen and Pelvis 11/29/22 * [facility] Appointment Date:02/20/2023 10:20:00 AM Scheduled Provider:Lennie TRACEY CNP [facility] Future App[facility]ments Appointment Date:08/21/2023 10:20:00 AM Scheduled Provider:Lennie TRACEY CNP Location:[facility] Appointment Type:[facility] Evaluation + Plan note Future Appointments Appointment Date:02/19/2024 09:00:00 AM Scheduled Provider:Lennie TRACEY CNP Location:[facility] Appointment Type: Open Future Scheduled Tests Laboratory* CBC w/ Auto Diff 08/21/23 * Comprehensive Metabolic Panel 08/21/23 * Lipid Panel 08/21/23 [facility] Evaluation note* Diagnosis Other synovitis and tenosynovitis, left ankle and foot- Primary Left ankle pain, unspecified chronicity Venous insufficiency (chronic) (peripheral) Unspecified venous (peripheral) insufficiency Chronic ulcer of right leg with fat layer exposed (CMS/HCC) Cellulitis of right leg [facility] Diagnosis Venous insufficiency (chronic) (peripheral)- Primary Unspecified venous (peripheral) insufficiency Cellulitis of right leg Chronic ulcer of right leg with fat layer exposed (CMS/HCC) [facility] Diagnosis Sinus tarsi syndrome, left- Primary Other synovitis and tenosynovitis, left ankle and foot Other enthesopathy of left foot and ankle [M77.52] Left ankle pain, unspecified chronicity Sprain of anterior talofibular ligament of left ankle, initial encounter [facility]* Patient returns in follow- up of problems as noted. In the interim he is done well relatively well from a cardiology standpoint. He has none of the overt palpitation and/or diaphoresis that heralded his diagnosis of coronary disease and subsequent intervention. He does, though, have significant lifestyle limiting dyspnea with exertion. He states that he got much worse when he had COVID-pneumonia an d he actually was hospitalized for a week and on home oxygen for over 2 months. * I advised him that his dyspnea could be multifactorial. His is concerned and because of this we recommended an echocardiogram to exclude the development of a cardiomyopathy. In the past he used to have symptomatic relief of his myocardial ischemia with the self administration of nitrates and because of this I recommended a trial of topical nitroglycerin therapy to see if his symptomatology improves. If there is significant change and/or improvement we may consider evaluating for coronary disease but if there is no appreciable benefit from the nitrates we will presume his dyspnea to be non ischemic. * Is blood pressure and lipid management are reviewed and felt to be appropriate. He acknowledges significant obesity and understands the merits of diet and weight loss. -[facility] 600 DO Work Phone: History of Present illness Narrative* Patient returns in follow-up of problems as noted. In the interim he is done well relatively well from a cardiology standpoint. He has none of the overt palpitation and/or diaphoresis that heralded his diagnosis of coronary disease and subsequent intervention. He does, though, have significant lifestyle limiting dyspnea with exertion. He states that he got much worse when he had COVID-pneumonia an d he actually was hospitalized for a week and on home oxygen for over 2 months. * I advised him that his dyspnea could be multifactorial. His is concerned and because of this we recommended an echocardiogram to exclude the development of a cardiomyopathy. In the past he used to have symptomatic relief of his myocardial ischemia with the self administration of nitrates and because of this I recommended a trial of topical nitroglycerin therapy to see if his symptomatology improves. If there is significant change and/or improvement we may consider evaluating for coronary disease but if there is no appreciable benefit from the nitrates we will presume his dyspnea to be non ischemic. * Is blood pressure and lipid management are reviewed and felt to be appropriate. He acknowledges significant obesity and understands the merits of diet and weight loss. [facility] Work Phone: History of Present illness Narrative* Patient returns in follow-up of problems as noted. In the interim he is done well relatively well from a cardiology standpoint. He has none of the overt palpitation and/or diaphoresis that heralded his diagnosis of coronary disease and subsequent intervention. He does, though, have significant lifestyle limiting dyspnea with exertion. He states that he got much worse when he had COVID-pneumonia an d he actually was hospitalized for a week and on home oxygen for over 2 months. * I advised him that his dyspnea could be multifactorial. His is concerned and because of this we recommended an echocardiogram to exclude the development of a cardiomyopathy. In the past he used to have symptomatic relief of his myocardial ischemia with the self administration of nitrates and because of this I recommended a trial of topical nitroglycerin therapy to see if his symptomatology improves. If there is significant change and/or improvement we may consider evaluating for coronary disease but if there is no appreciable benefit from the nitrates we will presume his dyspnea to be non ischemic. * Is blood pressure and lipid management are reviewed and felt to be appropriate. He acknowledges significant obesity and understands the merits of diet and weight loss. [facility] Work Phone: History of Present illness NarrativePatient returns in follow-up of recent testing. We performed a stress test with isotope imaging because of concerns regarding progression of disease but a stress test demonstrated no ischemia, no scar or infarct, and no arrhythmia because of this we believe his cardiovascular status to be stable and he was educated and reassured in great detail. Review and/or management of risk factors which inclu de hyperlipidemia hypertension is assessed and appears in no change in therapy or adjustments will require our attention today. His body mass index was discussed in detail and the merits of exercise and weight loss were discussed. He denies overt anginal symptoms and because of this we suggest continued therapy as is although with diet and exercise. Because of all the above we suggest follow-up in a year.[facility] 600 DO Work Phone: History of Present illness Narrative* Patient returns in follow-up of problems as noted. In interim he is done well from a cardiology standpoint but he was found to have a large abdominal aortic aneurysm and he underwent percutaneous intervention in [place]. Details are not all available. Nonetheless he states he was recently evaluated and given the all clear and because of this he believes the matter is behind him. The concept of device migration was discussed with him I suggested that he maintain follow-up with vascular surgery for surveillance of his aortic stent graft. * In regards to his coronary disease he is doing well. He has none of the symptoms that preceded his diagnosis of coronary disease and subsequent angioplasty. Control and management of risk factors hyperlipidemia and hypertension is reviewed and control is acceptable. We did advocate the merits of diet and weight loss and he understands our recommendation. [facility] 250 DO Work Phone: Hospital course Narrative No data available for this section [facility] Hospital Discharge instructions No data available for this section [facility] [place] Progress note No data available for this section [facility] Reason for referral (narrative) Referred by: Lennie TRACEY CNP [facility] Reuwwm for referral (narrative)* Consultation (Routine) - Pending Review Specialty Diagnoses / Procedures Referred By Debbi watson Referred To Contact Vascular Surgery Diagnoses Venous insufficiency (chronic) (peripheral) Cellulitis of right leg Procedures GA OFFICE/OUTPATIENT [facility] 60 MINUTES Nam Meza MD [address] [facility] [address], [place] [address] Referral ID Status Reason Start Date Expiration Date Visits Requested Visits Authorized [id number] Pending Review Specialty Services Required 04/08/2024 10/05/2024 1 1 [facility] Chief Complaint LIZZY KELLY is being seen for an annual follow-up of.LIZZY KELLY is being seen for an annual follow-up of.LIZZY KELLY is being seen for an annual follow-up of. TESTING RESULTS.TESTING RESULTS.LIZZY KELLY is being seen for an annual follow- up of. Summary Purpose Family History Unknown Family Member Name Dates Details Family history of CABG: [facility](V17.49, Z82.49) Status:Active Family history of abdominal aortic aneurysm (AAA): Mother, Father(V17.49, Z82.49) Status:Active No Family History Records Found Advance Directives No Advanced Directives Records FoundNo Advanced Directives Records FoundNo Advanced Directives Records FoundNo Advanced Directives Records FoundNo Advanced Directives Records FoundNo Advanced Directives Records Found Additional Source Comments (unrecognized sect ion and content) No Status Records FoundNo Status Records FoundNo Status Records FoundNo Status Records FoundNo Status Records FoundNo Status Records Found INFORMATION SOURCE (unrecogn ized section and content) DATE CREATED AUTHOR 03/12/2022 [facility] DATE CREATED AUTHOR AUTHOR'S ORGANIZ ATION 02/11/2023 [facility] DATE CREATED AUTHOR AUTHOR'S ORGANIZ ATION 02/27/2023 [facility] DATE CREATED AUTHOR AUTHOR'S ORGANIZ ATION 02/27/2023 [email or web address] DATE CREATED AUTHOR AUTHOR'S ORGANIZ ATION 02/21/2024 [facility] DATE CREATED AUTHOR AUTHOR'S ORGANIZ ATION 04/10/2024 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 Start Date End Date Unallocated, Jacqueline Pavon MD [address] [place] [address] PCP - General Family Medicine 03/03/24 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 This clinical summary was aggregated from multiple sources. Caution should be exercised in using it in the provision of clinical care. This summary normalizes information from multiple sources, and as a consequence, information in this document may materially change the coding, format and clinical context of patient data. In addition, data may be omitted in some cases. CLINICAL DECISIONS SHOULD BE BASED ON THE PRIMARY CLINICAL RECORDS. [employer] provides no warranty or guarantee of the accuracy or completeness of information in this document.
== END 2024-06-18 11:13 | disposition home or self-care (01) ==
LOC: VC 10:52
PROVIDERS: PCP Radiology Diagnostic Radiology; Visit Provider Radiology Diagnostic Radiology
DX: I83.813 Varicose veins of bilateral lower extremities with pain (principal)
CPT/HCPCS: 36478

== ENCOUNTER 2024-06-25 08:42 | Outpatient (OUT) | payer OTHER, SELFPAY ==
--- NOTE | 2024-06-22 08:06 | W.VEIN ---
Discharge Plan Discharge Disposition: Home, Self-Care Discharge Medications: No Action nitroglycerin 0.4 mg tablet, sublingual 0.4 mg sublingual Q5M Rx Instructions: do not exceed 3 doses per episode lovastatin 10 mg tablet 10 mg PO DAILY lisinopril 10 mg tablet 10 mg PO DAILY furosemide 20 mg tablet 20 mg PO DAILY potassium chloride [Klor-Con] 20 mEq packet 20 meq PO DAILY albuterol 90 mcg/actuation aerosol inhalation aspirin [Adult Low Dose Aspirin] 81 mg tablet,delayed release (DR/EC) 81 mg PO DAILY Print Language: German
--- NOTE | 2024-06-25 07:35 | VEINCLINIC_ITS ---
Varicose Veins Patient in today for follow up ultrasound post EVLT of right GSV IWilliam MD personally performed the services described in this documentation, as scribed by Carmen Roque RVT, RDMS in my presence and it is both accurate and complete. Carmen Vargas RVT, RDMS, am scribing for, and in the presence of, Dr. William Mcintosh and in the presence of the patient. thigh: bilateral, knee: bilateral, calf: bilateral, ankle: bilateral and robert: bilateral tender 7 10 years Worsened in recent months: Yes standing elevating extremities and compression stockings Reports fatigue, heaviness, limb pain, edema and leg edema History of lower extremity trauma: Yes Superficial thrombophlebitis: No Family history of varicose veins: no Has patient had previous lower extremity venous surgery: No Patient has previously received the following treatment(s) for lower extremity varicose veins: Reports none Does patient have a history of : not applicable Does patient intend to have future pregnancies: not applicable Has patient had lower extremity venous scan with relux testing: Yes Support hose used: Yes Problems walking or doing physical activity: Yes How does it affect you: effects ADL and work life Do you walk much: Yes Do you stand much: Yes Review of Systems ROS Narrative Nam Vargas MD personally performed the services described in this documentation, as scribed by Carmen Roque RVT, RDMS in my presence and it is both accurate and complete. I, Carmen Roque RVT, RDMS, am scribing for, and in the presence of, Dr. Nam Meza and in the presence of the patient. Status of ROS 10 or more systems reviewed and unremark able except as noted in history and below Cardiovascular Reports: edema and swelling of feet/ankles Musculoskeletal Reports: extremity pain, extremity swelling, joint pain and joint swelling Integumentary/Breast Reports: skin tenderness PFSH PFSH Medical History (Updated 06/17/24 @ 16:20 by Dylan Ying) Thrombophlebitis of superficial veins of right lower extremity ?I80.01 - Phlebitis and thrombophlebitis of superficial vessels of right lower extremity (ICD-10) Thrombophlebitis of femoropopliteal vein of left lower extremity ?I80.02 - Phlebitis and thrombophlebitis of superficial vessels of left lower extremity (ICD-10) Pain due to varicose veins of both lower extremities ?I83.813 - Varicose veins of bilateral lower extremities with pain (ICD-10) Melanoma ?C43.9 - Malignant melanoma of skin, unspecified (ICD-10) Hypertension ?I10 - Essential (primary) hypertension (ICD-10) Vertigo ?R42 - Dizziness and giddiness (ICD-10) 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, unspecified (ICD-10) Myocardial infarct ?I21.9 - Acute myocardial infarction, unspecified (ICD-10) CAD (coronary artery disease) ?I25.10 - Atherosclerotic heart disease of [place] coronary artery without angina pectoris (ICD-10) Hypercholesteremia ?E78.00 - Pure hypercholesterolemia, unspecified (ICD-10) AAA (abdominal aortic aneurysm) ?I71.40 - Abdominal aortic aneurysm, without rupture, unspecified (ICD-10) Surgical History (Updated 06/18/24 @ 11:11 by Dylan Ying) Status post laser ablation of incompetent vein ?Z98.890 - Other specified postprocedural states (ICD-10) Status post laser ablation of incompetent vein ?Z98.890 - Other specified postprocedural states (ICD-10) S/P lateral meniscus repair of right knee ?Z98.890 - Other specified postprocedural states (ICD-10) H/O heart artery stent ?Z95.5 - Presence of coronary angioplasty implant and graft (ICD-10) History of endovascular stent graft for abdominal aortic aneurysm (AAA) ?Z95.828 - Presence of other vascular implants and grafts (ICD-10) Family History (Updated 04/21/24 @ 08:59 by Jena Garrett RN) Mother Family history of cancer Father Family history of myocardial infarction Family history of hypertension Family history of stroke Social History (Updated 04/21/24 @ 09:00 by Jena Garrett RN) Within the past year, how many standard drinks containing alcohol did you have on a typical day: 7 to 9 Smoking status: Former smoker Do you use any of these nicotine containing products: smokeless tobacco Nicotine containing products detail: smoked 3-4 PPD for 35 days. Quit 13 years ago. Non-prescribed substance use: denies use Meds Home Medications and Allergies Home Medications ?Medication ?Instructions ?Recorded ?Confirmed ?Type albuterol 90 mcg/actuation aerosol mcg inhalation 04/21/24 History inhaler aspirin 81 mg tablet,delayed 81 mg PO DAILY 04/21/24 04/21/24 History release (Adult Low Dose Aspirin) furosemide 20 mg tablet 20 mg PO DAILY 04/21/24 04/21/24 History lisinopril 10 mg tablet 10 mg PO DAILY 04/21/24 04/21/24 History lovastatin 10 mg tablet 10 mg PO DAILY 04/21/24 04/21/24 History nitroglycerin 0.4 mg sublingual 0.4 mg sublingual Q5M 04/21/24 04/21/24 History tablet potassium chloride 20 mEq oral 20 meq PO DAILY 04/21/24 04/21/24 History packet (Klor-Con) Allergies Allergy/AdvReac Type Severity Reaction Status Date / Time No Known Drug Allergies Allergy Unverified 04/21/24 09:00 Exam Narrative Exam Narrative: Nam Vargas MD personally performed the services described in this documentation, as scribed by Carmen Roque RVT, RDMS in my presence and it is both accurate and complete. Carmen Vargas RVT, RDMS, am scribing for, and in the presence of, Dr. Nam Meza and in the presence of the patient.. Constitutional Documenting provider has reviewed patient's vital signs: yes Common normals: oriented x3 Nutritional appearance: overweight Lymph Lymphatic: no lymphedema noted Cardio Peripheral pulses: posterior tibial pulses present and dorsalis pedis pulses present Extremity General: calf tenderness, edema and other findings Right lower extremity: lower leg Right lower leg: inspection and palpation Left lower extremity: lower leg Left lower leg: inspection and palpation Neuro Common normals: oriented x3 Results Imaging Venous US: Radiologist's impression: The ultrasound demonstrates Heat induced thrombus visualized 2.7cm from the SFJ. The heat induced thrombus extends from groin to prox calf. Assessment and Plan Assessment and Plan (1) Thrombophlebitis of superficial veins of right lower extremity: Plan Patient in today for follow up ultrasound of lower extremity following treatment of EVLT of right leg GSV completed on 06/18/24. William Vargas MD personally performed the services described in this documentation, as scribed by Carmen Elmlinger RVT, RDMS in my presence and it is both accurate and complete. I, Carmen Roque RVT, RDMS, am scribing for, and in the presence of, Dr. William Mcintosh and in the presence of the patient.
--- NOTE | 2024-06-25 07:37 | W.VEIN ---
Discharge Plan Discharge Disposition: Home, Self-Care Outpatient Diagnostics: VC Endovenous Perf Ablation RT (Routine) Timeframe: 2 Weeks Facility: [facility] - Location: [facility] Ordered By: William Mcintosh Follow Up Appointments: 07/03/24 Plan of Treatment: EVLT of right leg perforating veins Print Language: Citizen Of [place] Discharge Date/Time: 06/25/24 09:11
--- NOTE | 2024-06-25 08:43 | VEIN_ITS ---
Patient Name: LIZZY KELLY MR#: [id number] : 1965 Exam Date: 06/25/2024 Ordering Doctor: DR ALEX CHARLES M.D. RADIOLOGY REPORT PROCEDURE: VC EXT VENOUS RT LMTD COMPARISON: None. INDICATIONS: I80.01 - Phlebitis and thrombophlebitis of superficial ve... TECHNIQUE: Lower extremity hudson scale and Duplex Doppler evaluation of the deep venous system from the inguinal ligament through the calf veins. FINDINGS: REGION: Right lower extremity. THROMBI: Negative for DVT. Heat induced thrombus visualized 2.7cm from the SFJ. The heat induced thrombus extends from groin to prox calf. COMPRESSIBILITY: Non-compressible segments corresponding to thrombus FLOW: Areas of no flow corresponding to thrombus OTHER: CONCLUSION: 1. Successful post ablation occlusion of right great saphenous vein. Dictated by: William Mcintosh M.D. on 06/25/2024 at 09:15 Approved by: William Mcintosh M.D. on 06/25/2024 at 09:16
--- NOTE | 2024-06-25 08:43 | VEIN_ITS ---
Patient Name: LIZZY KELLY MR#: [id number] : 1965 Exam Date: 06/25/2024 Ordering Doctor: DR ALEX CHARLES M.D. RADIOLOGY REPORT PROCEDURE: [facility] - OFFICE VISIT FOLLOW UP [facility]. PROGRESS NOTES: The patient reports improvement in leg symptoms. There has been interval reduction in varicosities. The patient has followed our recommendations to walk 20-30 minutes once or twice per day since the procedure. Physical exam demonstrates decrease in varicosities of the leg. Persistent varicosities are identified along the legs bilaterally. Review of the ultrasound performed the same day demonstrates occlusive thrombus extending throughout the treated vein(s), see separate report, consistent with a successful ablation. No thrombus extending into or beyond the saphenofemoral junction. The patient expressed a desire to proceed with treatment of remaining incompetent varicosities. The patient was informed that treatment was a process and would require several procedures/sessions. [facility]: 1. Successful ablation of the right great saphenous vein(s). 2. Persistent varicose veins and lower extremity symptoms. PLAN: 1. 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 Nurse notes, history and physical were reviewed and confirmed, see attached forms. The nurse was present throughout the physical exam and consultation Dictated by: William Mcintosh M.D. on 06/25/2024 at 09:16 Approved by: William Mcintosh M.D. on 06/25/2024 at 09:17
--- OUTSIDE RECORDS SUMMARY | 2024-06-25 08:56 | XMS_ITS | CCD ---
Author Organization [facility] Care Team Providers Care Technical Expert Name Role Phone Lennie Tracey Unavailable Unavailable Unavailable Kyung, Ms. Lennie Bradford Primary Care Unav ailable MCGuinn II, Dr. Hdz Attending Unavaila ble MCGuinn II, Dr. Hdz Referring Unavaila ble Kyung, Ms. Lennie Bradford Primary Care Unav ailable MCGuinn II, Dr. Hdz Referring Unavaila ble MCGuinn II, Dr. Hdz Attending Unavaila ble Kyung, [facility]av ailable MCGuinn II, Dr. Hdz [...] II, Dr. Wilder Esparza Attending Unavailable Lennie TARCEY Attending Unavailable Wittenauer DO Angella SJermain Attending Unavaila ble Xena DO Loomis SJermain Attending Unavaila ble Xena DO Angella [...] Acetaminophen / HYDROcodone; Translations: [Vicodin] [facility] (1 source) Acetaminophen / oxyCODONE; Translations: [Percocet 5/325] [facility] Medications Current Medications Medication Drug Class(es) Dates Sig (Normalized) Sig (Original) [id number] 200 actuat albuterol 0.09 mg/actuat metered dose inhaler (11 sources) beta2-Adrenergic Agonist take 2 puff(s) by [...] Status: Ordered furosemide 20 mg oral tablet (20 sources) Loop Diuretic Start: 10-24-2022 take 1 tablet by mouth once daily furosemide 20 mg Tab 20 mg = 1 tab(s), Oral, Daily, # 90 tab(s), Refills(s) 4, Pharmacy: [facility], 182, cm, 02/20/23 10:23:00 [...] Daily, # 90 tab(s), Refills(s) 4, Pharmacy: [facility] 1986, 182, cm, 10/24/22 11:03:00 EDT, Height/Length Dosing, 154.8, kg, 10/24/22 10:48:00 EDT, Weight Dosing Start Date: 10/24/22 Status: Ordered methylPREDNISolone 4 mg oral tablet (2 sources) Corticosteroid Start: 03-03-2024 End: 03-03-2024 take 1 tablet by mouth once methylPREDNISolone (Medrol Dospak) 4 MG tablets Indications: Acute Bursitis Take 1 tablet (4 mg) by mouth 1 (one) time for 1 dose Follow schedule on package instructions 1 each 03/03/2024 03/03/2024 Active Nitro 0.4 mg Tab (4 sources) Start: 05-24-2014 Nitro 0.4 mg Tab = 1 tab(s), SubLingual, q5min, PRN Chest pain, If chest pain not relieved within 5 minutes of taking the 1st dose, seek immediate medical attention not to exceed 3 doses/15 min--if pain persists, seek medical attention, # 25 tab(s) Start Date: 05/24/14 Status: Ordered nitroglycerin 0.4 mg sublingual tablet (20 sources) Nitrate Vasodilator Start: 11-21-2022 nitroglycerin 0.4 mg sublingual Tab 0.4 mg = 1 tab(s), SubLingual, q5min, PRN for chest pain, # 100 tab(s), Refills(s) 1, Pharmacy: [facility] 1986, 182, cm, 11/21/22 9:23:00 [...] Quantity: 90 Refills: 3 Ordered: 20-Nov-2021 Wilder Elizabeth MD Start : 20-Nov-2021 Active new start [...] q6hr for wheezing, 1 EA, Refill(s) 1, [facility], 183, cm, 09/25/20 11:18:00 EDT, Height/Length Dosing, 143, kg, 09/25/20 11:18:00 EDT, Weight Dosing Start Date: 09/25/20 Status: Ordered Ventolin HFA 90 mcg/inh Aerosol-Adpt (6 sources) Start: 02-19-2024 take 2 puff(s) by inhalation every four hours for wheezing Ventolin HFA 90 mcg/inh Aerosol-Adpt 2 puff(s), Inhalation, q4hr for wheezing, 18 gram, Refill(s) 3, [facility], 182, cm, 02/19/24 9:08:00 EDT, Height/Length Dosing, 159.8, kg, 02/19/24 9:08:00 EDT, Weight Dosing Start Date: 02/19/24 Status: Ordered Start: 11-21-2022 take 2 puff(s) by in halation every four hours for wheezing Ventolin HFA 90 mcg/inh Aerosol-Adpt 2 puff(s), Inhalation, q4hr for wheezing, 18 gram, Refill(s) 3, [facility], 182, cm, 11/21/22 9:23:00 EDT, Height/Length [...] Quantity: 90 Refills: 3 Ordered: 26-Feb-2023 Wilder Elizabeth MD Active hydroCHLOROthiazide 25 mg / triamterene 37.5 mg oral capsule (8 sources) Potassium-sparing Diuretic, Thiazide Diuretic Start: 01-19-2021 take 1 capsule by mouth once daily Triamterene-HCTZ 37.5-25 MG Oral Capsule take 1 capsule by mouth once daily Quantity: 90 Refills: 3 Ordered: 27-Dec-2022 Wilder Elizabeth MD Start : 19-Jan-2021 Active potassium chloride 20 meq extended release oral tablet (20 sources) Start: 04-22-2023 take 1 tablet by mouth once daily potassium chloride 20 mEq ER Tab 20 mEq = 1 tab(s), Oral, Daily, # 90 tab(s), Refills(s) 4, Pharmacy: [facility] 1986, 182, cm, 02/20/23 10:23:00 EDT, Height/Length Dosing, 154.6, kg, 02/20/23 10:23:00 EDT, Weight Dosing Start Date: 04/22/23 Status: Ordered Start: 10-24-2022 take 1 tablet by anton th once daily potassium chloride 20 mEq ER Tab 20 mEq = 1 tab(s), Oral, Daily, # 90 tab(s), Refills(s) 1, Pharmacy: [facility] 1985, 182, cm, 10/24/22 11:03:00 EDT, Height/Length Dosing, [...] 05-14-2014 Chronic Comment on above: RIGHT Other acquired deformities (2 sources) Contracture of joint of left ankle; Translations: [Contracture, left ankle] 03-03-2024 Chronic Other aftercare (1 source) Follow-up status; Translations: [Encounter for follow-up examination after completed treatment for conditions other than malignant neoplasm] Onset: 12-24-2022 Episodic Other circulatory disease (10 sources) Patient post angioplasty; Translations: [Other postprocedural status] Episodic Other connective tissue disease (4 sources) Synovitis and tenosynovitis; Translations: [Other synovitis and tenosynovitis, left ankle and foot] 04-01-2024 Episodic Other connective tissue disease (3 sources) Enthesopathy of lower limb; Translations: [Other enthesopathy [...] Onset: 02-19-2024 Episodic Other non-traumatic joint disorders (5 sources) Ankle pain; Translations: [Pain in left ankle and joints of left foot] 02-19-2024 Episodic Other non-traumatic joint disorders (3 sources) Sinus tarsi syndrome of left ankle; Translations: [...] lower limb] 04-01-2024 Episodic Sprains and strains (6 sources) Sprain of left ankle; Translations: [Sprain [...] Test Name Value Interpretation Reference Range Facility XR Ankle - left 3 [facility] Result: AP/MO/LAT: Three views were taken today AP/MORT/LAT Ankle: No fractures or dislocations seen 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 in ankle joint [facility] Radiology Study observation (narrative) [facility] Ambulatory Visit Summaryon 0 02-19-2024 Ambulatory Visit [...] When: In 6 months Where: [address] [place] [address]- Someone Will Contact You Regarding These Appointments [facility] External Ambulatory Referral, Podiatry, 02/19/24 9:38:00 EDT, Left ankle pain [facility] External Ambulatory Referral, Service not offered at [facility], Podiatry, Bryan Saunders, 02/19/24 9:39:00 EDT, Left ankle pain Medications What How Much When Instructions Unchanged albuterol (Ventolin HFA 90 mcg/ inh Aerosol-Adpt) 2 Puffs Inhalation Every 4 hours as needed for for wheezing Pickup at [facility] Unchanged aspirin (Aspirin 81 [...] physician if questions or concerns Pharmacy Information [facility]: [address] [place], [place] [id number] [phone] Allergies No Known Allergies Problems Ongoing - [...] you for choosing us for your care. [facility] Office/Clini c Noteon 02-19-2024 Family [...] have a cardiology consult note from 02/26/2023, CONSTANCE Elizabeth. Blood pressure at that visit was 108/58 mmHg. No medications or testing was ordered at that time. They recommended weight loss. In regards to his AAA that he had repaired last year in [facility], he is to follow up with vascular on a routine basis to monitor the presence of his aortic stent graft. His cutter grinder operator, Dr. Elizabeth has recently retired, and he is scheduled to see a nurse practitioner next week. His procedures were performed by Dr. Hendrix. His last labs were done in 08/2023 and the cutter grinder operator is going to do them at next [...] Coronary arterioscle (more content not included)... [facility] Comment on above: Result Comment: Elec tronically [...] Coronary arteriosclerosis Invalid Interpretation Code Seborrheic keratoses [facility] CBC w/ Auto Diffon 4 Basophil Absolute 0.0 E9/L Normal 0.0-0.2 [facility] Comment on above: Performed By: #### 1 [id number], 6004982, 95145803, 8180417, 5979955 #### [facility] [address] [place] [address] Basophils/100 WBC (Bld) 0.7 % Normal 0.0-2.0 [facility] Comment on above: Performed By: #### 1 7759804, 7875189, 39554226, 0816307, 5979809 #### [facility] [address] [place] [address] Eos Absolute 0.1 E9/L Normal 0.0-0.5 [facility] Comment on above: Performed By: #### 1 1775073, 1764094, 09222300, 7645079, 8951911 #### [facility] [address] [place] [address] Eosinophils/100 WBC (Bld) 2.4 % Normal 0.0-8.0 [facility] Comment on above: Performed By: #### 1 8617824, 5493349, 51351751, 7073173, 5388954 #### [facility] [address] [place] [address] Erythrocyte distribution width (RBC) [Ratio] 16.1 % High 10.9-14.2 [facility] Comment on above: Performed By: #### 1 9861617, 6382253, 23392541, 0350432, 2185064 #### [facility] [address] [place] [address] Hematocrit (Bld) [Volume fraction] 42.0 % Normal 37.7-49.0 [facility] Comment on above: Performed By: #### 1 5591522, 6962195, 40942199, 2223459, 9881523 #### [facility] [address] [place] [address] Hemoglobin (Bld) [Mass/Vol] 13.5 g/dL Normal 13.5-17.5 [facility] Comment on above: Performed By: #### 1 9867934, 2419022, 55324417, 3531043, 6987131 #### [facility] [address] [place] [address] Lymph Absolute 1.6 E9/L Normal 1.0-4.0 [facility] Comment on above: Performed By: #### 1 7567733, 4647542, 41431312, 8162500, 4386367 #### [facility] [address] [place] [address] Lymphocytes/100 WBC (Bld) 31.8 % Normal 14.0-50.0 [facility] Comment on above: Performed By: #### 1 3310238, 9680995, 08870166, 2282458, 0205290 #### [facility] [address] [place] [address] MCH (RBC) [Entitic mass] 27.1 pg Normal 27.0-34.0 [facility] Comment on above: Performed By: #### 1 6128015, 9851805, 04149322, 5614115, 3205718 #### [facility] [address] [place] [address] MCHC (RBC) [Mass/Vol] 32.4 g/dL Normal 31.4-36.0 [facility] Comment on above: Performed By: #### 1 5255067, 2949503, 79127819, 7291447, 9774891 #### [facility] [address] [place] [address] MCV (RBC) [Entitic vol] 83.9 fL Normal 80.0-100.0 [facility] Comment on above: Performed By: #### 1 3781998, 0477838, 34431303, 2966881, 9107066 #### [facility] [address] [place], [place] [address] [place] Absolute 0.5 E9/L Normal 0.2-1.0 [facility] Comment on above: Performed By: #### 1 9648516, 8569121, 68191382, 2757154, 4375079 #### [facility] [address] [place], [place] [address] Monocytes/100 WBC (Bld) 10.2 % Normal 4.0-14.0 [facility] Comment on above: Performed By: #### 1 3093436, 9847001, 93445830, 4215350, 9367493 #### [facility] [address] [place] [address] Neutro Absolute 2.8 E9/L Normal 2.0-7.5 [facility] Comment on above: Performed By: #### 1 3675621, 2636872, 90483885, 0290597, 0686814 #### [facility] [address] [place] [address] Neutro Auto 54.9 % Normal 36.0-75.0 [facility] Comment on above: Performed By: #### 1 6903477, 2249172, 81693729, 6010117, 9864310 #### [facility] [address] [place] [address] Platelet 163.0 E9/L Normal 150.0-500.0 [facility] Comment on above: Performed By: #### 1 3561962, 8345094, 77225081, 5603260, 2959622 #### [facility] [address] [place] [address] Platelet mean volume (Bld) [Entitic vol] 9.1 fL Normal 6.4-10.8 [facility] Comment on above: Performed By: #### 1 3470497, 2292095, 31028273, 7872958, 1996531 #### [facility] [address] [place] [address] RBC 5.0 E12/L Normal 4.3-5.9 [facility] Comment on above: Performed By: #### 1 4572593, 4969353, 14406577, 7260703, 7327014 #### [facility] [address] [place] [address] WBC 5.1 E9/L Normal 4.0-11.0 [facility] Comment on above: Performed By: #### 1 8334429, 1875759, 11580485, 3694135, 8185470 #### [facility] [address] [place] [address] CHEMISTRYOrdered By: SYSTEM SYSTEM on 08-21-2023 Albumin [...] for this result was chemiluminescence using [employer]'s Access Hybritech PSA reagent. Sodium [Moles/Vol] 136 mmol/L Normal 135 - 145 mmol/L Rem[facility] Chem Triglyceride [Mass/Vol] 91 mg/dL Normal <=149mg/dL [facility] Urea nitrogen [Mass/Vol] 19 mg/dL Normal 5 - 21 mg/dL [facility] Urea nitrogen/Creatinine [Mass ratio] 21 mg/mg High - Remisol Chem CMPon 08-21-2023 Albumin [Mass/Vol] 4.1 g/dL Normal 3.3-5.0 [facility] Comment on above: Performed By: #### 1 8347775, 0609465, 24137349, 7744784, 2284664 #### [facility] [address] [place] [address] Albumin/Globulin [Mass ratio] 1.3 {ratio} Normal 1.1-2.2 [facility] Comment on above: Performed By: #### 1 4485930, 7321663, 87353588, 2049222, 1376132 #### [facility] [address] [place] [address] Alk Phos 119 Int._Unit/L High 21-98 [facility] Comment on above: Performed By: #### 1 7166110, 5653655, 36587973, 3397921, 0771358 #### [facility] [address] [place] [address] ALT 21 Int._Unit/L Normal 6-46 [facility] Comment on above: Performed By: #### 1 1159000, 6506303, 78440763, 8063415, 4585577 #### [facility] [address] [place] [address] Anion gap [Moles/Vol] 11 mmol/L Normal 6-16 [facility] Comment on above: Performed By: #### 1 8787264, 9073771, 88613791, 9634420, 4020787 #### [facility] [address] [place] [address] AST 20 Int._Unit/L Normal 5-43 [facility] Comment on above: Performed By: #### 1 6794685, 1080666, 60084610, 8151709, 8836597 #### [facility] [address] [place] [address] Bili Total 0.6 mg/dL Normal 0.0-1.1 [facility] Comment on above: Performed By: #### 1 8328521, 1874146, 54464917, 0049200, 2393001 #### [facility] [address] [place] [address] BUN/Creat Ratio 21 No Units High 10-20 [facility] Comment on above: Performed By: #### 1 7330388, 4141168, 09597550, 3322278, 8281181 #### [facility] [address] [place] [address] Calcium [Mass/Vol] 9.3 mg/dL Normal 8.9-11.1 [facility] Comment on above: Performed By: #### 1 0281163, 7536978, 79021449, 7983493, 7536035 #### [facility] [address] [place] [address] Chloride [Moles/Vol] 105 mmol/L Normal 101-111 [facility] Comment on above: Performed By: #### 1 4870349, 2212276, 13547383, 3941898, 1135184 #### [facility] [address] [place] [address] CO2 [Moles/Vol] 24 mmol/L Normal 21-31 [facility] Comment on above: Performed By: #### 1 6503029, 2312506, 85302219, 7727873, 2932447 #### [facility] [address] [place] [address] Creatinine [Mass/Vol] 0.9 mg/dL Normal 0.5-1.3 [facility] Comment on above: Performed By: #### 1 9512859, 8114180, 68695732, 0700815, 4918149 #### [facility] [address] [place] [address] Globulin (S) [Mass/Vol] 3.1 g/dL Normal 1.4-4.0 [facility] Comment on above: Performed By: #### 1 8723733, 1291416, 41044845, 1671707, 6747203 #### [facility] [address] [place] [address] Glucose [Mass/Vol] 92 mg/dL Normal 55-199 [facility] Comment on above: Performed By: #### 1 1107481, 8721754, 55390179, 2887749, 7034599 #### [facility] [address] [place] [address] Potassium [Moles/Vol] 4.2 mmol/L Normal 3.5-5.3 [facility] Comment on above: Performed By: #### 1 4847427, 8929606, 34881590, 5771342, 9163452 #### [facility] [address] [place] [address] Protein [Mass/Vol] 7.2 g/dL Normal 6.0-7.8 [facility] Comment on above: Performed By: #### 1 5730367, 7822742, 38563519, 8636536, 5162868 #### [facility] [address] [place] [address] Sodium [Moles/Vol] 136 mmol/L Normal 135-145 [facility] Comment on above: Performed By: #### 1 3511226, 5829057, 26655264, 4457638, 6391033 #### [facility] [address] [place] [address] Urea nitrogen [Mass/Vol] 19 mg/dL Normal 5-21 [facility] Comment on above: Performed By: #### 1 8538186, 3360879, 70225486, 4186539, 1379025 #### [facility] [address] [place] [address] Family Medicine Office/Clini c Noteon 08-21-2023 Family [...] migraines. He could not tolerate Percocet or [place] as caused him insomnia. Instead, he was [...] this conditi (more content not included)... [facility] Comment on above: Result Comment: Elec tronically [...] Normal 80.0 - 100.0 fL Remisol Heme [place] Absolute 0.5 E9/L Normal 0.2 - 1.0 [...] 08-21-2023 Cholesterol [Mass/Vol] 140 mg/dL Normal 120-200 [facility] Comment on above: Performed By: #### 1 8089605, 9484668, 44989277, 0791237, 8257746 #### [facility] [address] [place] [address] Cholesterol in HDL [Mass/Vol] 49 mg/dL Invalid Interpretation Code [facility] Comment on above: Result Comment: '>= 60 LOW RISK' '<= 40 HIGH RISK' Performed By: #### 1 4207089, 0889595, 31905919, 5983616, 2033758 #### [facility] [address] [place] [address] Cholesterol in LDL [Mass/Vol] 81 mg/dL Normal <=129 [facility] Comment on above: Performed By: #### 1 3440388, 5126623, 52663752, 1408503, 0372935 #### [facility] [address] [place] [address] Cholesterol in VLDL [Mass/Vol] 18 mg/dL Normal 7-40 [facility] Comment on above: Performed By: #### 1 0425202, 0472775, 93774840, 7180816, 4655499 #### [facility] [address] [place] [address] Triglyceride [Mass/Vol] 91 mg/dL Normal <=149 [facility] Comment on above: Performed By: #### 1 9149881, 0160715, 46273596, 5410617, 7990715 #### [facility] [address] [place] [address] PSA Screen, Totalon 08-21-19 24 PSA Scrn Tot. 1.6 ng/mL Normal 0.1-3.5 [facility] Comment on above: Result Comment: The concentration of PSA determined by different manufacturers can vary due to differences in assay methods and reagent specificity. Values obtained from different assay methods cannot be used interchangeably. The methodology used for this result was chemiluminescence using [employer]'s Access Hybritech PSA reagent. Performed By: #### 1 7983306, 6678946, 12916301, 5647867, 8163178 #### [facility] [address] [place] [address] Patient Educationon 08-21-19 Patient Education Cardiovascular Angina [...] these instructions at home: Medicines ? Take doyq-zun-bletzup and prescription medicines only as told by [...] can dri (more content not included)... [facility] eGFRon 08-21-2023 eGFR 98 mL/min/1.73 m2 Normal >=59 [facility] Comment on above: Order Comment: Order added by Discern Expert. 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, Status post angioplasty Renew: Aspirin Adult Low Dose 81 MG Oral Tablet Delayed Release; TAKE 1 TABLET DAILY Hyperlipidemia Renew: Rosuvastatin Calcium 10 MG Oral Tablet; TAKE 1 TABLET AT BEDTIME Morbid obesity with BMI of 45.0-49.9, adult Healthy Weight Tips; Status:Complete - Retrospective Authorization; Done: [id number] Some eating tips that can help you lose weight.; Status:Complete - Retrospective Authorization; Done: [id number] SocHx: Former smoker Tobacco Use Screening; Status:Complete; Done: [id number] Patient Instructions Please bring all medicines, vitamins, [...] aneurysm and he underwent percutaneous intervention in [place]. Details are not all available. Nonetheless he [...] negative for complaint. Vitals Vital Signs Recorded: [id number] 10:27AM Heart Rate66, R Radial Kivdyoki407, LUE, Sitting Niawdwjvd25, LUE, Sitting Height6 ft Cwuwij412 lb BMI Gxsaxgwzlu72.98 kg/m2 BSA Calculated2.67 Tobacco Useb) No PHQ-2 #1. Over the last 2 weeks have you felt down, depressed or hopeless? (If yes, answer PHQ-9 below)No PHQ-2 #2. Over the last 2 weeks have you felt little interest or pleasure in doing things? (If yes, answer PHQ (more content not included)... [facility] Tobacco Screening.on 023 Adult depression screening assessment No [facility] [address] DO Work Phone: Fall risk assessment c) Not medically indicated [facility] [address] DO Work Phone: Tobacco use status CP b) No [facility] 250 DO Work Phone: BASIC METABOLIC PANELon 05- Anion gap [Moles/Vol] 10 mmol/L Normal 7-20 [facility] Comment on above: Performed By: #### L AB15 ####[facility] ([employer])[address] [place] [address] Calcium [Mass/Vol] 8.4 mg/dL Low 8.6-10.3 [facility] Comment on above: Performed By: #### L AB15 ####[facility] ([employer])[address] [place] [address] Chloride [Moles/Vol] 106 mmol/L Normal 98-107 [facility] Comment on above: Performed By: #### L AB15 ####[facility] ([employer])[address] [place] [address] CO2 [Moles/Vol] 23 mmol/L Normal 21-31 [facility] Comment on above: Performed By: #### L AB15 ####[facility] ([employer])[address] [place] [address] Creatinine [Mass/Vol] 0.84 mg/dL Normal 0.70-1.30 [facility] Comment on above: Performed By: #### L AB15 ####[facility] ([facility] [place] [address] GLOMERULAR FILTRATION RATE ML/MIN/1.73 SQ M.PREDICTED 100.5 mL/min/1.73m*2 Normal >60.0 [facility] Comment on above: Result Comment: The [facility]???s estimated glomerular filtration rate (eGFR) will no [...] of individuals. Performed By: #### L AB15 ####[facility] ([facility])[address] [place] [address] Glucose [Mass/Vol] 142 mg/dL High 70-100 [facility] Comment on above: Performed By: #### L AB15 ####[facility] ([facility])[address] [place] [address] Potassium [Moles/Vol] 4.4 mmol/L Normal 3.5-5.1 [facility] Comment on above: Performed By: #### L AB15 ####[facility] ([facility])[address] [place] [address] Sodium [Moles/Vol] 135 mmol/L Low 136-145 [facility] Comment on above: Performed By: #### L AB15 ####[facility] ([facility])[address] [place] [address] Urea nitrogen [Mass/Vol] 16 mg/dL Normal 7-25 [facility] Comment on above: Performed By: #### L AB15 ####[facility] ([facility])[address] [place] [address] UREA NITROGEN/CREATININE (MASS RATIO) IN SER/PLAS 19.0 Normal [facility] Comment on above: Performed By: #### L AB15 ####[facility] ([employer])[address] [place] [address] CBCon 11-10-2022 Erythrocyte distribution width (RBC) [Ratio] 14.5 % Normal 11.5-15.0 [facility] Comment on above: Performed By: #### L AB294 ####[facility] ([facility])[address] [address] ERYTHROCYTE MEAN CORPUSCULAR HEMOGLOBIN CONCENTRATION (G/DL) BY AUTOMATED 31.3 g/dL Low 32.0-35.0 [facility] Comment on above: Performed By: #### L [id number] ####[facility] ([facility] [facility] [address] Hematocrit (Bld) [Volume fraction] 38.7 % Low 39.0-55.0 [facility] Comment on above: Performed By: #### L [id number] ####[facility] ([facility])[address] [address] Hemoglobin (Bld) [Mass/Vol] 12.1 g/dL Low 13.0-17.0 [facility] Comment on above: Performed By: #### L [id number] ####[facility] ([facility])[address] [place] [address] MCH (RBC) [Entitic mass] 27.0 pg Normal 27.0-33.0 [facility] Comment on above: Performed By: #### L [id number] ####[facility] ([facility])[address] [address] MCV (RBC) [Entitic vol] 86.4 fL Normal 82.0-98.0 [facility] Comment on above: Performed By: #### L [id number] ####[facility] ([facility])[address] [place] [address] PLATELETS (10*3/UL) IN BLOOD AUTOMATED COUNT 161 10*3/uL Normal 150-400 [facility] Comment on above: Performed By: #### L [id number] ####[facility] ([facility])[address] [place] [address] RBC (Bld) [#/Vol] 4.48 10*6/uL Normal 4.20-5.70 [facility] Comment on above: Performed By: #### L [id number] ####[facility] ([facility]ER)[address] [place] [address] WBC (Bld) [#/Vol] 10.35 10*3/uL Normal 4.00-10.60 [facility] Comment on above: Performed By: #### L [id number] ####[facility] ([facility]ER)[address] [place] [address] DSon 11-10-2022 DS Admission Admitted 11/08/2022 for [...] is a 57 y.o. male presenting to [facility] as a direct admit from [facility]. 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 Patient was transferred to [facility] for surgical management. Endorses history of CAD [...] statin, follow up with Dr. Perrin at [facility] in 1-2 weeks. Pertinent Physical Exam [...] orders wer (more content not included)... Normal [facility] APTTon 11-09-2022 ACTIVATED PARTIAL THROMBOPLASTIN TIME IN PPP BY COAGULATION ASSAY 47.7 Seconds High 25.0-35.0 [facility] Comment on above: Result Comment: Clin ical significance of the APTT is questionable in the presence of heparin. Performed By: #### S ODIUM, WHOLE BLOOD #### [facility] RESPIRATORY THERAPY [address] ARTERIAL BLOOD GAS WITH CO-O XIMETRYon 11-09-2022 Base excess Calc (Bld) [Moles/Vol] -2.5000 mmol/L Low -2.0-3.0 [facility] Comment on above: Order Comment: OR GA S Performed By: #### L [id number] ####[facility] RESPIRATORY [id number] CARBOXYHEMOGLOBIN/HEM OGLOBIN TOTAL % IN BLOOD 1.3 % Normal 0.0-3.0 [facility] Comment on above: Order Comment: OR GA S Performed By: #### L [id number] ####[facility] RESPIRATORY [id number] [place] [address] [facility] CO2 (Bld) [Partial pressure] 39 mm[Hg] Normal 35-48 [facility] Comment on above: Order Comment: OR GA S Performed By: #### L [id number] ####[facility] RESPIRATORY [id number] [place] [address] [facility] DEOXYGENATED HEMOGLOBIN IN BLOOD 2.9 % Normal 1-5 [facility] Comment on above: Order Comment: OR GA S Performed By: #### L [id number] ####[facility] RESPIRATORY [id number] [place] [address] [facility] HCO3 (Bld) [Moles/Vol] 22.5 mmol/L Normal 21.0-28.0 [facility] Comment on above: Order Comment: OR GA S Performed By: #### L [id number] ####[facility] RESPIRATORY [id number] [place] [address] [facility] Hemoglobin (Bld) [Mass/Vol] 13.7 g/dL Normal 11.7-17.4 [facility] Comment on above: Order Comment: OR GA S Performed By: #### L [id number] ####[facility] RESPIRATORY [id number] [place] [address] [place] METHEMOGLOBIN/100 IN BLOOD 0.3 % Normal 0.0-1.5 [facility] Comment on above: Order Comment: OR GA S Performed By: #### L [id number] ####[facility] RESPIRATORY [id number] [place] [address] [facility] Oxygen (Bld) [Partial pressure] 81 mm[Hg] Low 83-100 [facility] Comment on above: Order Comment: OR GA S Performed By: #### L [id number] ####[facility] RESPIRATORY [id number] [place] [address] [place] OXYGEN SATURATION (%) IN ARTERIAL BLOOD 97.0 % Normal 94.0-98.0 [facility] Comment on above: Order Comment: OR GA S Performed By: #### L [id number] ####[facility] RESPIRATORY [id number] [place] [address] [facility] OXYGENATED HEMOGLOBIN IN BLOOD 95.4 % High 90.0-95.0 [facility] Comment on above: Order Comment: OR GA S Performed By: #### L [id number] ####[facility] RESPIRATORY [id number] [place] [address] [facility] pH (Bld) 7.37 [pH] Normal 7.35-7.45 [facility] Comment on above: Order Comment: OR GA S Performed By: #### L [id number] ####[facility] RESPIRATORY [id number] [place] [address] [facility] SOURCE OF OXYGEN Vent Normal [facility] Comment on above: Order Comment: OR GA S Performed By: #### L [id number] ####[facility] RESPIRATORY [id number] [place] [address] [facility] BASIC METABOLIC PANELon 05-1 Anion gap [Moles/Vol] 11 mmol/L Normal 7-20 [facility] Comment on above: Performed By: #### L [id number] ####[facility] HOSPITAL LAB (BEAKER)[address] [place] [address] Calcium [Mass/Vol] 8.1 mg/dL Low 8.6-10.3 [facility] Comment on above: Performed By: #### L [id number] ####[facility] HOSPITAL LAB (BEAKER)[address] [place] [address] Chloride [Moles/Vol] 108 mmol/L High 98-107 [facility] Comment on above: Performed By: #### L [id number] ####[facility]OSPITAL LAB (BEAKER)[address] [place] [address] CO2 [Moles/Vol] 23 mmol/L Normal 21-31 [facility] Comment on above: Performed By: #### L [id number] ####[facility] (BEAKER)[address] [place] [address] Creatinine [Mass/Vol] 0.80 mg/dL Normal 0.70-1.30 [facility] Comment on above: Performed By: #### L [id number] ####[facility] ([facility])[address] [place] [address] GLOMERULAR FILTRATION RATE ML/MIN/1.73 SQ M.PREDICTED 101.9 mL/min/1.73m*2 Normal >60.0 [facility] Comment on above: Result Comment: [facility]???s estimated glomerular filtration rate (eGFR) will no [...] of individuals. Performed By: #### L [id number] ####[facility] ([facility])[address] [place] [address] Glucose [Mass/Vol] 100 mg/dL Normal 70-100 [facility] Comment on above: Performed By: #### L [id number] ####[facility] ([facility])[address] [place] [address] Potassium [Moles/Vol] 4.1 mmol/L Normal 3.5-5.1 [facility] Comment on above: Performed By: #### L [id number] ####[facility] ([facility])[address] [place] [address] Sodium [Moles/Vol] 138 mmol/L Normal 136-145 [facility] Comment on above: Performed By: #### L [id number] ####[facility] ([facility])[address] [place] [address] Urea nitrogen [Mass/Vol] 19 mg/dL Normal 7-25 [facility] Comment on above: Performed By: #### L [id number] ####[facility] ([facility])[address] [place] [address] UREA NITROGEN/CREATININE (MASS RATIO) IN SER/PLAS 23.8 Normal [facility] Comment on above: Performed By: #### L [id number] ####[facility] (BEAKER)[address] [place] [address] CALCIUM, IONIZEDon 3 CALCIUM IONIZED (MMOL/L) IN BLOOD 1.09 mmol/L Low 1.15-1.33 [facility] Comment on above: Performed By: #### C ALCIUM, IONIZED ####[facility] RESPIRATORY [id number] [place] [address] [place] CBCon 11-09-2022 Erythrocyte distribution width (RBC) [Ratio] 15.0 % Normal 11.5-15.0 [facility] Comment on above: Performed By: #### L [id number] ####[facility] (BEAKER)[address] [place] [address] ERYTHROCYTE MEAN CORPUSCULAR HEMOGLOBIN CONCENTRATION (G/DL) BY AUTOMATED 31.1 g/dL Low 32.0-35.0 [facility] Comment on above: Performed By: #### L [id number] ####[facility] (BEAKER)[address] [place] [address] Hematocrit (Bld) [Volume fraction] 40.5 % Normal 39.0-55.0 [facility] Comment on above: Performed By: #### L [id number] ####[facility] (BEAKER)[address] [place] [address] Hemoglobin (Bld) [Mass/Vol] 12.6 g/dL Low 13.0-17.0 [facility] Comment on above: Performed By: #### L [id number] ####[facility] (BEAKER)[address] [place] [address] MCH (RBC) [Entitic mass] 27.2 pg Normal 27.0-33.0 [facility] Comment on above: Performed By: #### L [id number] ####[facility] (BEAKER)[address] [place] [address] MCV (RBC) [Entitic vol] 87.3 fL Normal 82.0-98.0 [facility] Comment on above: Performed By: #### L [id number] ####[facility] (BEAKER)[address] [place] [address] PLATELETS (10*3/UL) IN BLOOD AUTOMATED COUNT 147 10*3/uL Low 150-400 [facility] Comment on above: Performed By: #### L [id number] ####[facility] ([facility])[address] [place] [address] RBC (Bld) [#/Vol] 4.64 10*6/uL Normal 4.20-5.70 [facility] Comment on above: Performed By: #### L [id number] ####[facility] ([facility])[address] [facility] [place] [facility] [place] [address] WBC (Bld) [#/Vol] 4.76 10*3/uL Normal 4.00-10.60 [facility] Comment on above: Performed By: #### L [id number] ####[facility] ([facility])[address] [place] [address] HPon 11-09-2022 HP History Of Present Illness Lizzy Kelly Jr. is a 57 y.o. male presenting to [facility] as a direct admit from [facility]. 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 Patient was transferred to [facility] for surgical management Past Medical History HTN, [...] management of AAA Plan -Discussed with Dr. Perrin -[place] -Stat echo, ecg -Plan for EVAR 11/09 Based on my medical assessment, after consideration of the patient???s risk factors (age, co-morbidities, patient presenting symptoms and acuity), it is determined that the services needed warrant inpatient care. [facility] NURSNOTEon 11-09-2022 NURSNOTE Report given to josee sierra micu [facility] NURSNOTE PRE OP PULSES RIGHT DP + RIGHT PT + LEFT DP + RIGHT PT + ACT 188 0950 ACT 299 1004 ACT 279 1030 ACT 151 1055 MIN: 17.4 MGY 1935 CONTRAST 100ML [facility] OPNOTEon 11-09-2022 OPNOTE - Attestation signed by Gina Perrin MD at 11/10/2022 11:59 AM I was present for the entire procedure. REPAIR, AAA, ENDOVASCULAR Operative Note Date: 11/08/2022 - 11/09/2022 Location: [facility] OR Name: Lizzy Gonsalo Kelly Jr., : 1965, Diagnosis Pre-op Diagnosis [...] Drains: * None in log * Staff: Molding Manager: Parviz Cristina RN Scrub Person: Lennie Burt Scientific Linguist: Paras Quintana CSA [employer] Molding Manager: Norman Shaw [employer] Scrub: Rosa Elena Hernandez Indications: Lizzy Kelly [...] The patient was then system[place] [address] units of IV heparin and an ACT [...] patient keith (more content not included)... Normal [facility] POCT ACTIVATED CLOTTING TIME UNSOLICITED RESULTSon 11-09-2022 POC ACTIVATED CLOTTING TIME 151 sec Normal 82-152 [facility] Comment on above: Performed By: #### S ODIUM, WHOLE BLOOD #### [facility] RESPIRATORY THERAPY [address] [place], [place] [address] POC ACTIVATED CLOTTING TIME 279 sec High 82-152 [facility] Comment on above: Performed By: #### S ODIUM, WHOLE BLOOD #### [facility] RESPIRATORY THERAPY [address] [place] [address] [place] POC ACTIVATED CLOTTING TIME 299 sec High 82-152 [facility] Comment on above: Performed By: #### S ODIUM, WHOLE BLOOD #### [facility] RESPIRATORY THERAPY [address] [place] [address] [place] POC ACTIVATED CLOTTING TIME 188 sec High 82-152 [facility] Comment on above: Performed By: #### S ODIUM, WHOLE BLOOD #### [facility] RESPIRATORY THERAPY [address] [place] [address] [facility] POCT GLUCOSE METER UNSOLICIT ED RESULTSon 11-09-2022 Glucose [Mass/Vol] 231 mg/dL High 70-105 [facility] Comment on above: Result Comment: lpet [email or web address] Performed By: #### L [id number] ####[facility] (BEAKER)[address] [place] [address] Glucose [Mass/Vol] 108 mg/dL High 70-105 [facility] Comment on above: Result Comment: ltol les Performed By: #### L [id number] ####[facility] (BEAKER)[address] [place] [address] POTASSIUM, WHOLE BLOODon Potassium [Moles/Vol] 3.9 mmol/L Normal 3.5-5.1 [facility] Comment on above: Performed By: #### P OTASSIUM, WHOLE BLOOD ####[facility] RESPIRATORY [id number] [place] [address] [facility] SODIUM, WHOLE BLOODon 2022 SODIUM, WHOLE BLOOD 135 Low 136-145 [facility] Comment on above: Performed By: #### S ODIUM, WHOLE BLOOD #### [facility] RESPIRATORY THERAPY [address] [place] [address] [place] TYPE AND SCREENon 11-09-2022 AB SCREEN Negative Normal [facility] Comment on above: Performed By: #### L [id number] ####[facility] BLOOD BANK, ABO group Nom (Bld) O Normal [facility] Comment on above: Performed By: #### L [id number] ####[facility] BLOOD BANK, RH TYPE IN BLOOD Positive Normal [facility] Comment on above: Performed By: #### L [id number] ####[facility] BLOOD BANK, APTTon 11-08-2022 ACTIVATED PARTIAL THROMBOPLASTIN TIME IN PPP BY COAGULATION ASSAY 30.8 Seconds Normal 25.0-35.0 [facility] Comment on above: Result Comment: Clin ical significance of the APTT is questionable in the presence of heparin. Performed By: #### L [id number] ####[facility] HOSPITAL LAB (BEAKER)[address] [facility] [place] [place] [address] BASIC METABOLIC PANELon 10-29 Anion gap [Moles/Vol] 11 mmol/L Normal 7-20 [facility] Comment on above: Performed By: #### S ODIUM, WHOLE BLOOD #### [facility] RESPIRATORY THERAPY [address] [place] [address] [place] Calcium [Mass/Vol] 8.9 mg/dL Normal 8.6-10.3 [facility] Comment on above: Performed By: #### S ODIUM, WHOLE BLOOD #### [facility] RESPIRATORY THERAPY [address] [place] [address] [place] Chloride [Moles/Vol] 108 mmol/L High 98-107 [facility] Comment on above: Performed By: #### S ODIUM, WHOLE BLOOD #### [facility] RESPIRATORY THERAPY [address] [place] [address] [place] CO2 [Moles/Vol] 25 mmol/L Normal 21-31 [facility] Comment on above: Performed By: #### S ODIUM, WHOLE BLOOD #### [facility] RESPIRATORY THERAPY [address] [place] [address] [place] Creatinine [Mass/Vol] 1.01 mg/dL Normal 0.70-1.30 [facility] Comment on above: Performed By: #### S ODIUM, WHOLE BLOOD #### [facility] RESPIRATORY THERAPY [address] [place] [address] [place] GLOMERULAR FILTRATION RATE ML/MIN/1.73 SQ M.PREDICTED 85.7 mL/min/1.73m*2 Normal >60.0 [facility] Comment on above: Result Comment: [facility]???s estimated glomerular filtration rate (eGFR) will no [...] By: #### S ODIUM, WHOLE BLOOD #### [facility] RESPIRATORY THERAPY [address] [place] [address] [facility] Glucose [Mass/Vol] 75 mg/dL Normal 70-100 [facility] Comment on above: Performed By: #### S ODIUM, WHOLE BLOOD #### [facility] RESPIRATORY THERAPY [address] [place] [address] [facility] Potassium [Moles/Vol] 3.7 mmol/L Normal 3.5-5.1 [facility] Comment on above: Performed By: #### S ODIUM, WHOLE BLOOD #### [facility] RESPIRATORY THERAPY [address] [place] [address] [facility] Sodium [Moles/Vol] 140 mmol/L Normal 136-145 [facility] Comment on above: Performed By: #### S ODIUM, WHOLE BLOOD #### [facility] RESPIRATORY THERAPY [address] [place] [address] [facility] Urea nitrogen [Mass/Vol] 25 mg/dL Normal 7-25 [facility] Comment on above: Performed By: #### S ODIUM, WHOLE BLOOD #### [facility] RESPIRATORY THERAPY [address] [place] [address] [place] UREA NITROGEN/CREATININE (MASS RATIO) IN SER/PLAS 24.8 Normal [facility] Comment on above: Performed By: #### S ODIUM, WHOLE BLOOD #### [facility] RESPIRATORY THERAPY [address] [place] [address] [facility] CBC WITH AUTO DIFFERENTIALon 11-08-2022 Basophils (Bld) [#/Vol] 0.03 10*3/uL Normal 0.00-0.20 [facility] Comment on above: Performed By: #### L [id number] #### [facility] (BEAKER) [address] [place] [address] Basophils/100 WBC (Bld) 0.5 % Normal 0.0-1.0 [facility] Comment on above: Performed By: #### L [id number] #### [facility] ([facility]) [address] [place] [address] Eosinophils (Bld) [#/Vol] 0.19 10*3/uL Normal 0.00-0.50 [facility] Comment on above: Performed By: #### L [id number] #### [facility] ([facility]) [address] [place] [address] Eosinophils/100 WBC (Bld) 3.4 % Normal 0.0-6.0 [facility] Comment on above: Performed By: #### L [id number] #### [facility] ([facility]) [address] [place] [address] Erythrocyte distribution width (RBC) [Ratio] 15.2 % High 11.5-15.0 [facility] Comment on above: Performed By: #### L [id number] #### [facility] (BEAKER) [address] [place] [address] ERYTHROCYTE MEAN CORPUSCULAR HEMOGLOBIN CONCENTRATION (G/DL) BY AUTOMATED 32.1 g/dL Normal 32.0-35.0 [facility] Comment on above: Performed By: #### L [id number] #### [facility] (BEAKER) [address] [place] [address] Hematocrit (Bld) [Volume fraction] 40.2 % Normal 39.0-55.0 [facility] Comment on above: Performed By: #### L [id number] #### [facility] (BEAKER) [address] [place] [address] Hemoglobin (Bld) [Mass/Vol] 12.9 g/dL Low 13.0-17.0 [facility] Comment on above: Performed By: #### L [id number] #### [facility] ([facility]) [address] [place] [address] Immature granulocytes (Bld) [#/Vol] 0.03 10*3/uL Normal 0.00-0.20 [facility] Comment on above: Performed By: #### L [id number] #### [facility] ([facility]) [address] [facility] [address] Immature granulocytes/100 WBC (Bld) 0.5 % Normal 0.0-1.0 [facility] Comment on above: Performed By: #### L [id number] #### [facility] ([facility]) [address] [place] [address] Lymphocytes (Bld) [#/Vol] 1.87 10*3/uL Normal 1.20-4.00 [facility] Comment on above: Performed By: #### L [id number] #### [facility] ([facility]) [address] [place] [address] Lymphocytes/100 WBC (Bld) 33.6 % Normal 20.0-45.0 [facility] Comment on above: Performed By: #### L [id number] #### [facility] ([facility] [address] [place] [address] MCH (RBC) [Entitic mass] 27.6 pg Normal 27.0-33.0 [facility] Comment on above: Performed By: #### L [id number] #### [facility] ([facility]) [address] [facility] [address] MCV (RBC) [Entitic vol] 86.1 fL Normal 82.0-98.0 [facility] Comment on above: Performed By: #### L [id number] #### [facility] (BEAKER) [address] [place] [address] Monocytes (Bld) [#/Vol] 0.78 10*3/uL Normal 0.10-1.00 [facility] Comment on above: Performed By: #### L [id number] #### [facility] ([facility]) [address] [place], [place] [address] Monocytes/100 WBC (Bld) 14.0 % High 5.0-12.0 [facility] Comment on above: Performed By: #### L [id number] #### [facility] ([facility]) [address] [place], [place] [address] Neutrophils (Bld) [#/Vol] 2.67 10*3/uL Normal 1.60-7.60 [facility] Comment on above: Performed By: #### L [id number] #### [facility] ([facility]) [address] [place], [place] [address] Neutrophils/100 WBC (Bld) 48.0 % Normal 40.0-72.0 [facility] Comment on above: Performed By: #### L [id number] #### [facility] ([facility]) [address] [place], [place] [address] NRBC (PER 100 WBCS) BY AUTOMATED COUNT 0.0 % Normal 0 [facility] Comment on above: Performed By: #### L [id number] #### [facility] [facility] [address], [place] [address] PLATELETS (10*3/UL) IN BLOOD AUTOMATED COUNT 174 10*3/uL Normal 150-400 [facility] Comment on above: Performed By: #### L [id number] #### [facility] ([facility]) [address] [place], [place] [address] RBC (Bld) [#/Vol] 4.67 10*6/uL Normal 4.20-5.70 [facility] Comment on above: Performed By: #### L [id number] #### [facility] ([facility]) [address] [place] [address] WBC (Bld) [#/Vol] 5.57 10*3/uL Normal 4.00-10.60 [facility] Comment on above: Performed By: #### L [id number] #### [facility] ([facility]) [address] [place] [address] CHEMISTRYOrdered By: SYSTEM SYSTEM on 11-08-2022 Anion gap [Moles/Vol] 11 mmol/L Normal 6 - 16 mEq/L F C Remisol Calcium [Mass/Vol] 9.1 mg/dL Normal 8.9 - 11. 1 mg/dL [facility] Remisol Chloride [Moles/Vol] 105 mmol/L Normal 101 - 1 11 mmol/L [facility] Remisol CO2 [Moles/Vol] 25 mmol/L Normal 21 - 31 mmol/L FT Remisol Creatinine [Mass/Vol] 1.0 mg/dL Normal 0.5 - 1.3 mg/dL [facility] Remisol GFR/1.73 sq M.predicted among non-blacks MDRD (S/P/Bld) [Vol rate/Area] 87 mL/min/1.73 m2 Normal >=59mL/min/1. 73 m2 [facility] Chem S Glucose [Mass/Vol] 184 mg/dL Normal [...] 8.8 fL Normal 6.4 - 10.8 fL [facility] HemeAutoSS Platelets (Bld) [#/Vol] 157.0 E9/L Normal 150.0 - 500.0 E9/L [facility] HemeAutoSS RBC (Bld) [#/Vol] 4.8 E12/L Normal 4.3 - 5.9 E12/L [facility] HemeAutoSS WBC corrected for nucl RBC Auto (Bld) [#/Vol] 4.9 E9/L Normal 4.0 - 11.0 E9/L [facility] HemeAutoSS MAGNESIUMon 11-08-2022 Magnesium [Mass/Vol] 1.9 mg/dL Normal 1.9-2.7 [facility] Comment on above: Performed By: #### L [id number] ####[facility] (MELINA)[address] [place] [address] PHOSPHORUSon 11-08-2022 Magnesium [Mass/Vol] 3.5 mg/dL Normal 2.5-5.0 [facility] Comment on above: Performed By: #### L [id number] ####[facility] (BEKE[facility]IN)[address] [place] [address] PROTIME-INRon 11-08-2022 INR IN PPP BY COAGULATION ASSAY 1.12 High 0.90-1.10 [facility] Comment on above: Result Comment: ACCC P [...] CLINICAL EFFECTIVENESS, AND OPTIMAL THERAPEUTIC RANGE. CHEST 1994;108:231S-246S. Performed By: #### L [id number] ####[facility] ([facility])[address] [place] [address] PROTHROMBIN TIME (PT) IN PPP BY COAGULATION ASSAY 14.3 Seconds Normal 12.3-14.8 [facility] Comment on above: Performed By: #### L [id number] ####[facility] ([facility])[address] [place] [address] TROPONIN Ion 11-08-2022 Troponin I.cardiac [Mass/Vol] 0.01 ng/mL Normal 0.00-0.04 [facility] Comment on above: Performed By: #### L [id number] ####[facility] ([facility])[address] [place] [address] Tobacco Screening.on 022 Tobacco use status [facility] b) [facility] [employer] DO Work Phone: [facility] CARDIAC STRESS/REST INJE CTIONon 01-26-2022 [facility] CARDIAC STRESS/REST INJECTION Patient Name: LIZZY KELLY STUDY: MYOCARDIAL PERFUSION STRESS TEST WITH LEXISCAN Performing facility: [facility], [address] [place] [address], [address], [address] Provider: Dharmesh Elizabeth MD, FACC PCP: Dr. Lacy Tracey Supervising provider: Dharmesh Elizabeth MD, FACC INDICATION: CAD; Chest Pain; Dyspnea Fatigue HISTORY: Gender: M; Age: 56 y/o ; Height: 0 cm; Weight: 758.8919856 kg. CAD; High Cholesterol; Previous IN; HTN; Chest Pain; SOB; Fatigue; Quit smoking 8 years ago. Cardiac catheterization on 2012. PTCA on 2012. COMPARISON: Previous nuclear testing completed [id number] at [facility]. ACCESSION NUMBER(S): [id number]; [id number]; [id number] ORDERING CLINICIAN: WILDER ELIZABETH TECHNIQUE: TWO DAY protocol. Stress injection: Date:01-26-22, [...] Electronically signed by: AYLEEN DIAL MD Normal [facility] No Panel Informationon 01-26 Normal -[facility] 600 DO Work Phone: Tobacco Screening.on 022 Tobacco use status HS b) No [facility] 600 DO Work Phone: Echocardiogramon 12-19-[address], Suite [facility] [place] [address] TRANSTHORACIC ECHOCARDIOGRAM REPORT Patient Name: LIZZY KELLY Reading Physician: [id number] Elizabeth MD Study Date: 12/19/2021 Referring Physician: Betty ELIZABETH MRN/PID: [id number] PCP: Adi Macias MD Accession/Order#: [id number] Department Location: [facility] Yazan Date of : 1965 Fellow: Gender: M Nurse: Admit Date: Social Sciences Instructor: Maida Ochoa RDCS, RVT Height: 182.88 cm CC Report to: Weight: 150.60 kg Study Type: Echocardiogram BSA: 2.64 m2 Blood Pressure: 126 /78 mmHg Diagnosis/ICD: R06.00-Dyspnea, unspecified Indication: CAD, PTCA, HTN, Hyperlipidemia, Former Smoker. Morbid Obesity, COVID-19 Pneumonia Procedure/CPT: Echo Complete w Full Doppler-[id number] Study Detail: The following Echo studies were [...] 0.9 m/s (0.6-0.9m/s) PV Max P.6 mmHg [id number] Wilder Elizabeth MD Electronically signed on 12/22/2021 at 3:00:54 PM Final Normal [facility] Tobacco Screening.on 022 Adult depression screening assessment No [facility] 600 DO Work Phone: Tobacco use status [facility] b) No [facility] 600 DO Work Phone: Vital Signs Date Time Vital Sign Value Performing Clinician Facility 04-08-2024 09:23-0400 Body height 180.3 cm Bryan Dolce DPM FACFAS Work Phone: [facility] 04-08-2024 09:23-0400 Body mass index (BMI) [Ratio] 45.19 kg/m2 Bryan Dolce DPM FACFAS Work Phone: [facility] 04-08-2024 09:23-0400 Body weight 146.97 kg Bryan Dolce DPM FACFAS Work Phone: [facility] 04-08-2024 09:23-0400 Diastolic blood pressure 79 mm[Hg] Bryan Dolce DPM FACFAS Work Phone: [facility] 04-08-2024 09:23-0400 Heart rate 74 /min Bryan Dolce DPM FACFAS Work Phone: [facility] 04-08-2024 09:23-0400 Systolic blood pressure 125 mm[Hg] Bryan Dolce DPM FACFAS Work Phone: [facility] 04-01-2024 09:10-0400 Body height 180.3 cm Bryan Dolce DPM FACFAS Work Phone: [facility] 04-01-2024 09:10-0400 Body mass index (BMI) [Ratio] 45.19 kg/m2 Bryan Dolce DPM FACFAS Work Phone: [facility] 04-01-2024 09:10-0400 Body weight 146.97 kg Bryan Dolce DPM FACFAS Work Phone: [facility] 04-01-2024 09:10-0400 Diastolic blood pressure 76 mm[Hg] Bryan Dolce DPM FACFAS Work Phone: [facility] 04-01-2024 09:10-0400 Heart rate 81 /min Bryan Dolce DPM FACFAS Work Phone: [facility] 04-01-2024 09:10-0400 Systolic blood pressure 128 mm[Hg] Bryan Dolce DPM FACFAS Work Phone: [facility] 03-17-2024 10:07-0400 Body height 180.3 cm Bryan Dolce DPM FACFAS Work Phone: [facility] 03-17-2024 10:07-0400 Body mass index (BMI) [Ratio] 45.19 kg/m2 Bryan Dolce DPM FACFAS Work Phone: [facility] 03-17-2024 10:07-0400 Body weight 146.97 kg Bryan Dolce DPM FACFAS Work Phone: [facility] 03-17-2024 10:07-0400 Diastolic blood pressure 77 mm[Hg] Bryan Dolce DPM FACFAS Work Phone: [facility] 03-17-2024 10:07-0400 Heart rate 74 /min Bryan Dolce DPM FACFAS Work Phone: [facility] 03-17-2024 10:07-0400 Systolic blood pressure 126 mm[Hg] Bryan Dolce DPM FACFAS Work Phone: [facility] 03-03-2024 08:23-0400 Body height 180.3 cm Bryan Dolce DPM FACFAS Work Phone: [facility] 03-03-2024 08:23-0400 Body mass index (BMI) [Ratio] 46.58 kg/m2 Bryan Dolce DPM FACFAS Work Phone: [facility] 03-03-2024 08:23-0400 Body weight 151.5 kg Bryan Dolce DPM FACFAS Work Phone: [facility] 03-03-2024 08:23-0400 Diastolic blood pressure 75 mm[Hg] Bryan Dolce DPM FACFAS Work Phone: [facility] 09-03-2024 08:23-0400 Heart rate 73 /min Bryan Saunders DPM FACFAS Work Phone: [facility] 03-03-2024 08:23-0400 Systolic blood pressure 125 mm[Hg] Bryan Saunders DPM FACFAS Work Phone: [facility] 02-19-2024 09:05-0400 Blood Pressure Location Lennie ROBUCK [facility] 02-19-2024 09:05-0400 Diastolic blood pressure 73 mm[Hg] Lennie ROBUCK [facility] 02-19-2024 09:05-0400 Heart rate 64 /min Lennie ROBUCK [facility] 02-19-2024 09:05-0400 Respiratory rate 17 /min Lennie ROBUCK [facility] 02-19-2024 09:05-0400 SaO2% (BldA) [Mass fraction] 96 % Lennie ROBUCK [facility] 02-19-2024 09:05-0400 Systolic blood pressure 130 mm[Hg] Lennie ROBUCK [facility] 08-21-2023 09:57-0500 Blood Pressure Location Loomis Wittenauer [facility] 08-21-2023 09:57-0500 Diastolic blood pressure 79 mm[Hg] Angella Wittenauer [facility] 08-21-2023 09:57-0500 Heart rate 60 /min Angella Wittenauer [facility] 08-21-2023 09:57-0500 SaO2% (BldA) [Mass fraction] 93 % Loomis Wittenauer [facility] 08-21-2023 09:57-0500 Systolic blood pressure 133 mm[Hg] Angella Wittenauer [facility] 02-26-2023 10:27-0400 Body height 182.88 cm Lennie E Robuck Work Phone: [facility] 250 DO Work Phone: 02-26-2023 10:27-0400 Body mass index (BMI) [Ratio] 45.98 kg/m2 Lennie E Robuck Work Phone: [facility] 250 DO Work Phone: 02-26-2023 10:27-0400 Body surface area Derived from formula 2.67 m2 Lennie E Robuck Work Phone: [facility] 250 DO Work Phone: 02-26-2023 10:27-0400 Body weight 153.77 kg Lennie E Robuck Work Phone: [facility] 250 DO Work Phone: 02-26-2023 10:27-0400 Diastolic blood pressure 58 mm[Hg] Lennie E Robuck Work Phone: [facility] 250 DO Work Phone: 02-26-2023 10:27-0400 Heart rate 66 /min Lennie E Robuck Work Phone: [facility] 250 DO Work Phone: 02-26-2023 10:27-0400 Systolic blood pressure 108 mm[Hg] Lennie E Robuck Work Phone: [facility] 250 DO Work Phone: 02-20-2023 10:20-0400 Diastolic blood pressure 83 mm[Hg] Lennie ROBUCK [facility] 02-20-2023 10:20-0400 Heart rate 89 /min Lennie TRACEY [facility] 02-20-2023 10:20-0400 SaO2% (BldA) [Mass fraction] 96 % Lennie TRACEY [facility] 02-20-2023 10:20-0400 Systolic blood pressure 118 mm[Hg] Lennie TRACEY [facility] 12-24-2022 10:50-0400 Blood Pressure Location Gina Perrin [facility] 12-24-2022 10:50-0400 Diastolic blood pressure 79 mm[Hg] Gina Aydin [facility] 12-24-2022 10:50-0400 Heart rate 71 /min Gina Aydin [facility] 12-24-2022 10:50-0400 SaO2% (BldA) [Mass fraction] 95 % Gina Aydin [facility] 12-24-2022 10:50-0400 Systolic blood pressure 121 mm[Hg] Gina Brownan [facility] 11-08-2022 15:00-0400 Heart rate 72 /min Raffy Hernandez [facility] 11-08-2022 15:00-0400 Mean blood pressure 105 mm[Hg] Raffy Hernandez [facility] 11-08-2022 15:00-0400 Respiratory rate 20 /min Raffy Hernandez [facility] 11-08-2022 15:00-0400 SaO2% (BldA) [Mass fraction] 95 % Raffy Hernandez [facility] 11-08-2022 15:00-0400 Systolic blood pressure 146 mm[Hg] Raffy David [facility] 11-08-2022 14:30-0400 Diastolic blood pressure 84 mm[Hg] Raffy David [facility] 11-08-2022 14:30-0400 Heart rate 67 /min Raffy David [facility] 11-08-2022 14:30-0400 Mean blood pressure 104 mm[Hg] Raffy David [facility] 11-08-2022 14:30-0400 Respiratory rate 18 /min Raffy David [facility] 11-08-2022 14:30-0400 SaO2% (BldA) [Mass fraction] 98 % Raffy David [facility] 11-08-2022 14:30-0400 Systolic blood pressure 145 mm[Hg] Raffy David [facility] 11-08-2022 14:00-0400 Diastolic blood pressure 86 mm[Hg] Raffy David [facility] 11-08-2022 14:00-0400 Heart rate 77 /min Raffy David [facility] 11-08-2022 14:00-0400 Respiratory rate 16 /min Raffy David [facility] 11-08-2022 14:00-0400 Systolic blood pressure 143 mm[Hg] Raffy David [facility] 11-08-2022 10:53-0400 Body temperature 98.06 [degF] Raffy David [facility] 11-08-2022 10:53-0400 Heart rate 87 /min Raffy David [facility] 11-08-2022 10:53-0400 Respiratory rate 18 /min Raffy Hernandez [facility] 10-24-2022 10:45-0400 Blood Pressure Location Lennie TRACEY [facility] 10-24-2022 10:45-0400 Diastolic blood pressure 68 mm[Hg] Lennie TRACEY [facility] 10-24-2022 10:45-0400 Heart rate 82 /min Lennie TRACEY [facility] 10-24-2022 10:45-0400 SaO2% (BldA) [Mass fraction] 95 % Lennie TRACEY [facility] 10-24-2022 10:45-0400 Systolic blood pressure 107 mm[Hg] Lennie TRACEY [facility] 02-21-2022 10:56-0400 Body height 182.88 cm Lennie Tracey Work Phone: [facility] 600 DO Work Phone: 02-21-2022 10:56-0400 Body mass index (BMI) [Ratio] 45.16 kg/m2 Lennie Tracey Work Phone: [facility] [employer] 600 DO Work Phone: 02-21-2022 10:56-0400 Body surface area Derived from formula 2.65 m2 Lennie Tracey Work Phone: [facility] [employer] 600 DO Work Phone: 02-21-2022 10:56-0400 Body weight 151.05 kg Lennie Tracey Work Phone: [facility] 600 DO Work Phone: 02-21-2022 10:56-0400 Diastolic blood pressure 72 mm[Hg] Lennie E Robuck Work Phone: [facility] 600 DO Work Phone: 02-21-2022 10:56-0400 Heart rate 72 /min Lennie E Robuck Work Phone: [facility] 600 DO Work Phone: 02-21-2022 10:56-0400 Systolic blood pressure 112 mm[Hg] Lennie E Robuck Work Phone: [facility] 600 DO Work Phone: 01-26-2022 10:00-0400 61 1 Lennie E Robuck Work Phone: [facility] 600 DO Work Phone: Comment on above: [id number] 01-17-2022 10:08-0400 Body height 182.88 cm Lennie E Robuck Work Phone: [facility] 600 DO Work Phone: 01-17-2022 10:08-0400 Body mass index (BMI) [Ratio] 44.89 kg/m2 Lennie E Robuck Work Phone: [facility] 600 DO Work Phone: 01-17-2022 10:08-0400 Body surface area Derived from formula 2.64 m2 Lennie E Robuck Work Phone: [facility] 600 DO Work Phone: 01-17-2022 10:08-0400 Body weight 150.14 kg Lennie E Robuck Work Phone: [facility] 600 DO Work Phone: 01-17-2022 10:08-0400 Diastolic blood pressure 70 mm[Hg] Lennie E Robuck Work Phone: [facility] 600 DO Work Phone: 01-17-2022 10:08-0400 Heart rate 68 /min Lennie E Robuck Work Phone: [facility] 600 DO Work Phone: 01-17-2022 10:08-0400 Systolic blood pressure 122 mm[Hg] Lennie E Robuck Work Phone: [facility] 600 DO Work Phone: 12-19-2021 12:30-0400 70 1 Lennie E Robuck Work Phone: [facility] [address] [place] Work Phone: Comment on above: [id number] 11-20-2021 09:51-0400 Body height 182.88 cm Lennie E Robuck Work Phone: [facility] 600 DO Work Phone: 11-20-2021 09:51-0400 Body mass index (BMI) [Ratio] 45.03 kg/m2 Lennie E Robuck Work Phone: [facility] 600 DO Work Phone: 11-20-2021 09:51-0400 Body surface area Derived from formula 2.64 m2 Lennie E Robuck Work Phone: [facility] 600 DO Work Phone: 11-20-2021 09:51-0400 Body weight 150.6 kg Lennie E Robuck Work Phone: [facility] 600 DO Work Phone: 11-20-2021 09:51-0400 Diastolic blood pressure 68 mm[Hg] Lennie E Robuck Work Phone: [facility] 600 DO Work Phone: 11-20-2021 09:51-0400 Heart rate 67 /min Lennie Tracey Work Phone: [facility] 600 DO Work Phone: 11-20-2021 09:51-0400 Systolic blood pressure 120 mm[Hg] Lennie Tracey Work Phone: [facility] 600 DO Work Phone: Encounters Encounter Date Encounter Type Care Provider Facility Start: 04-08-2024 End: 04-08-2024 Bamboo flowsheet Bryan D Dolce DPM FACFAS Work Phone: [facility] Start: 04-08-2024 End: 04-08-2024 Bamboo flowsheet Bryan D Dolce DPM FACFAS Work Phone: [facility] Start: 04-08-2024 End: 04-08-2024 ambulatory BRYAN D DOLCE Not Available Start: 04-08-2024 End: 04-08-2024 Office outpatient visit 25 minutes Bryan D Dolce DPM FACFAS Work Phone: [facility] Comment on above: Venous insufficiency (chronic) (peripheral) (Primary Dx); Cellulitis of right leg; Chronic ulcer of right leg with fat layer exposed (CMS/HCC) Start: 04-01-2024 End: 04-01-2024 Bamboo flowsheet Bryan D Dolce DPM FACFAS Work Phone: [facility] Start: 04-01-2024 End: 04-01-2024 Bamboo flowsheet Bryan D Dolce DPM FACFAS [...] Start: 03-17-2024 End: 03-17-2024 Bamboo flowsheet Bryan Tong Saunders DPM FACFAS Work Phone: [facility] Start: 03-17-2024 End: 03-17-2024 Bamboo flowsheet Bryan Tong Saunders DPM FACFAS Work Phone: [facility] Start: 03-17-2024 End: 03-17-2024 ambulatory BRYAN SAUNDERS Not Available Start: 03-17-2024 End: 03-17-2024 Office outpatient visit 15 minutes Bryan Saunders DPM FACFAS Work Phone: [facility] Comment on above: Sinus tarsi syndrome , left (Primary Dx); Other synovitis and tenosynovitis, left ankle and foot; Other enthesopathy of left foot and ankle [M77.52]; Left ankle pain, unspecified chronicity; Sprain of anterior talofibular ligament of left ankle, initial encounter Start: 03-03-2024 End: 03-03-2024 Bamboo flowsheet Bryan Saunders DPM FACFAS Work Phone: [facility] Start: 03-03-2024 End: 03-03-2024 Bamboo flowsheet Bryan Saunders DPM FACFAS Work Phone: [facility] Start: 03-03-2024 End: 03-24-2024 Telephone encounter Bryan Saunders DPM FACFAS Work Phone: [facility] Comment on above: Foot Orthotics (Scan devni 03/03/24) Start: 03-03-2024 End: 03-03-2024 Office outpatient visit 25 minutes Bryan Saunders DPM FACFAS Work Phone: [facility] Comment on above: Sprain of anterior t alofibular ligament of left ankle, initial encounter (Primary Dx); Left ankle pain, unspecified chronicity; Other synovitis and tenosynovitis, left ankle and foot; Sinus tarsi syndrome, left; Other enthesopathy of left foot and ankle [M77.52]; Contracture, ankle, left [M24.572] Start: 03-03-2024 End: 03-03-2024 ambulatory BRYAN SAUNDERS Not Available Start: 02-19-2024 End: 02-19-2024 ambulatory Lennie TRACEY Facility:[facility] Start: 02-19-2024 End: 02-19-2024 Patient encounter procedure Lennie TRACEY [facility] Start: 08-21-2023 End: 08-21-2023 Lab Drop off Angella Rosen Xena [facility] Start: 08-21-2023 End: 08-21-2023 ambulatory DO Angella Jessika Xena Facility:[facility] Start: 08-21-2023 End: 08-21-2023 Patient encounter procedure Loomis Jessika Trinithai [facility] Start: 02-26-2023 ambulatory Ms. Lennie Tracey Facility: Start: 02-26-2023 Office outpatient vi sit 25 minutes Lennie Tracey Work Phone: [facility] 250 DO Work Phone: Start: 02-20-2023 End: 02-20-2023 Patient encounter procedure Lennie TRACEY [facility] Start: 12-25-2022 Rx Renewal [facility] Work Phone: Start: 12-24-2022 End: 12-24-2022 Patient encounter procedure Gina Perrin [facility] Start: 11-29-2022 End: 11-29-2022 Patient encounter procedure Gina Perrin [facility] Start: 11-19-2022 End: 11-20-2022 Pre-admission assessment Gina Perrin [facility] Start: 11-09-2022 Evaluation and manag ement of inpatient [facility] Start: 11-08-2022 Evaluation and manag ement of inpatient [facility] Start: 11-08-2022 End: 11-10-2022 Evaluation and management of inpatient [facility] Start: 11-08-2022 End: 11-08-2022 Emergency department patient visit Raffy Hernandez [facility] Start: 11-05-2022 End: 11-05-2022 Patient encounter procedure Nhan Roca [facility] General Surgery [place] Start: 10-24-2022 End: 10-24-2022 Patient encounter procedure Lennie TRACEY [facility] Family Medicine [place] Start: 02-21-2022 Office outpatient vi sit 25 minutes Lennie Tracey Work Phone: [facility] 600 DO Work Phone: Start: 01-30-2022 ambulatory Ms. Lennie beach Sundayvick Facility:[id number] Start: 01-26-2022 ambulatory Ms. Lennie beach Kyung Facility:[id number] Start: 01-17-2022 Office outpatient vi sit 25 minutes Lennie Tracey Work Phone: [facility] 600 DO Work Phone: Start: 12-22-2021 Chart Update Lennie Tracey Work Phone: [facility] 250 DO Work Phone: Start: 12-19-2021 ambulatory Ms. Lennie Tracey Facility:[id number] Start: 12-19-2021 Patient encounter procedure Lennie Tracey Work Phone: [facility] [place] Work Phone: Start: 11-20-2021 Office outpatient vi sit 25 minutes [facility] Tracey [facility] Work Phone: Procedures Date Procedure Procedure Detail Performing Clinician Start: 03-03-2024 Radex ankle complete minimum 3 views Bryan Saunders DPM FACFAS Work Phone: Start: 12-19-2021 Echocardiography Lennie Tracey Work Phone: [...] Work Phone: [facility] TRACEY Plan of Treatment Date Care Activity Detail Author Start: 05-05-2024 End: 05-05-2024 Patient encounter procedure 05/05/2024 9:20 AM EST [facility] Visit [facility] [address] [facility] [place] [phone] Bryan Saunders, DPM FACFAS [address] [place], [place] [id number] [facility] Start: 04-08-2024 End: 04-08-2024 Patient encounter procedure 04/08/2024 9:10 AM EDT Office Visit [facility] [address] [facility] [place] [address] Bryan Saunders, DPM FACFAS [address] [place] [address] [facility] Start: 04-01-2024 End: 04-01-2024 Clinical Support 04/01/2024 8:50 AM EDT Clinical Support [facility] [address] [facility] [address] Bryan Saunders, DPM FACFAS [address] [place] [address] [facility] Start: 03-17-2024 End: 03-17-2024 Clinical Support 03/17/2024 9:40 AM EDT Clinical Support [facility] [address] [place] [phone] Bryan Saunders, DPM FACFAS [address] [place] [address] [facility] Start: 03-03-2024 End: 03-03-2024 Patient encounter procedure 03/03/2024 8:10 AM EDT Office Visit [facility] [address] [place] [id number] Bryan Saunders, DPM FACFAS [address] [place] [address] Arrived [facility] Comment on above: Arrived Start: 03-01-2024 Influenza vaccination Influenza Vacc ine (#1) [facility] Start: 02-25-2024 FUV, Provider: Wilder Elizabeth, Status: Pen, Time: 9:10 AM FUV, Provider: Wilder Elizabeth, Status: Pen, Time: 9:10 AM -[facility] [employer] 250 DO Work Phone: Start: 02-26-2023 FUV, Provider: Wilder Elizabeth, Status: Pen, Time: 9:50 AM FUV, Provider: Wilder Elizabeth, Status: Pen, Time: 9:50 AM -[facility] 600 DO Work Phone: Start: 02-21-2022 FUV, Provider: Wilder Elizabeth, Status: Pen, Time: 10:50 AM FUV, Provider: Wilder Elizabeth, Status: Pen, [facility]: 10:50 [facility]: Start: 01-30-2022 REST ONLY, Provider: YAZAN HHVI NUCLEAR 01,[id number], Status: Pen, Time: 12:30 PM REST ONLY, Provider: YAZAN HHVI NUCLEAR 01,[id number], Status: Pen, Time: 12:30 PM [facility] Work Phone: Start: 01-26-2022 STRESSNUC2, Provider : YAZAN HHVI NUCLEAR 01,[id number], Status: Pen, Time: 10:00 AM STRESSNUC2, Provider: YAZAN HHVI NUCLEAR 01,[id number], Status: Pen, Time: 10:00 AM [facility] Work Phone: Start: 01-17-2022 FUV, Provider: Wilder Elizabeth, Status: Pen, Time: 10:00 AM FUV, Provider: Wilder Elizabeth, Status: Pen, Time: 10:00 AM [facility] Work Phone: Start: 12-19-2021 ECHO, Provider: YAZAN HHVI ULTRASOUND 01,[id number], Status: Pen, Time: 12:30 PM ECHO, Provider: YAZAN HHVI ULTRASOUND 01,[id number], Status: Pen, Time: 12:30 PM [facility] Work Phone: Start: 1965 Screening for malign ant neoplasm of colon [facility] Immunizations Immunization Date Immunization Notes Care Provider Macy summers 04-19-2023 influenza virus vacc ine, unspecified formulation [facility] 04-20-2022 SARS-CoV-2 (COVID-19 ) [id number] [facility] 03-20-2022 influenza virus vacc ine, unspecified formulation [facility] 07-28-2021 Pfizer-BioNTech COVI D-19 Vacc 30 MCG/0.3ML Intramuscular Suspension Lennie Tracey Work Phone: [facility] Comment on above: Series: 07-06-2021 influenza virus vacc ine, unspecified formulation [facility] 07-06-2021 Influenza, injectabl e, Madin [place] Canine Kidney, preservative free, quadrivalent Lennie E Robvick Work Phone: [facility] 600 DO Work Phone: 07-06-2021 Pfizer-BioNTSpire Sensibo COVI D-19 Vacc 30 MCG/0.3ML Intramuscular Suspension; Translations: [Pfizer-BioNTech COVID-19 Vacc 30 MCG/0.3ML Intramuscular Suspension] Lennie Tracey Work Phone: [facility] Comment on above: Series: 05-19-2021 SARS-CoV-2 (COVID-19 ) mRNA-1273 vaccine Loomis Wittenauer [facility] 04-06-2021 influenza virus vacc ine, unspecified formulation Angella Wittenauer [facility] 11-05-2020 SARS-CoV-2 (COVID-19 ) mRNA-1273 vaccine Angella Wittenauer [facility] 10-11-2020 SARS-CoV-2 (COVID-19 ) mRNA-1273 vaccine Angella Wittenauer [facility] 03-14-2020 influenza virus vacc ine, unspecified formulation Angella Snaptracstenauer [facility] 03-14-2020 pneumococcal polysaccharide vaccine, 23 valent Angella Wittenauer [facility] 03-09-2020 zoster vaccine recombinant Angella Wittenauer [facility] 01-06-2020 zoster vaccine recombinant Angella Wittenauer [facility] 04-12-2019 influenza virus vacc ine, unspecified formulation Angella Wittenauer [facility] 05-05-2018 influenza virus vacc ine, unspecified formulation Loomis Wittenauer [facility] 03-14-2018 influenza virus vacc ine, unspecified formulation Angella Wittenauer [facility] 03-27-2017 influenza virus vacc ine, unspecified formulation Loomis Wittenauer [facility] 02-06-2017 tetanus toxoid, redu hilario diphtheria toxoid, and acellular pertussis vaccine, adsorbed Loomis Wittenauer [facility] 05-07-2016 pneumococcal conjuga te vaccine, 13 valent Angella Wittenauer [facility] 03-31-2016 influenza virus vacc ine, unspecified formulation Loomis Wittenauer [facility] 10-10-2015 tetanus toxoid, unspecified formulation Loomis Wittenauer [facility] Comment on above: Result Comment: Rout e: Unknown Outside Source Comment: Comment on above: Early/Late Reason: Nursing Judgment 10-10-2015 tetanus toxoid, redu hilario diphtheria toxoid, and acellular pertussis vaccine, adsorbed Lennie ROBDemibooks [facility] Comment on above: Early/Late Reason: N ursing Judgment 04-16-2015 influenza virus vacc ine, unspecified formulation Angella Shilatenauer [facility] 03-01-2013 influenza virus vacc ine, unspecified formulation Lennie E Robuck Work Phone: [facility] 600 DO Work Phone: 07-01-2012 pneumococcal conjuga te vaccine, 13 valent Angella Wittenauer [facility] Comment on above: Result Comment: Rout e: Unknown 07-01-2012 pneumococcal polysaccharide vaccine, 23 valent Lennie E Robuck Work Phone: [facility] 600 DO Work Phone: 05-04-2011 influenza virus vacc ine, unspecified formulation Angella Wittenauer [facility] 05-04-2011 influenza, seasonal, injectable Lennie E Robuck Work Phone: -[facility] 600 DO Work Phone: influenza virus vacc ine, unspecified formulation Lennie E Robuck Work Phone: -[facility] 600 DO Work Phone: Comment on above: 2010 2006 Payers Date Payer Category Payer Private Health Insurance [place]OLIS [place] [facility] [id number] 2015-Present [address] JAMES MENENDEZ [id number] 2015 Unknown [id number] 1965 Unknown [id number] [id number]. 1068 1963 Unknown [id number] [id number]. 1068 1963 Unknown [id number] [id number]. 1068 1963 Unknown [id number] [id number]. 356 1965 Unknown [id number] [id number]. 727 1963 Unknown [id number] [id number]. 727 1963 Unknown [id number] 2.16.840.1.517256.3.579.2. 727 1963 Unknown [id number] 2.16.840.1.287453.3.579.2. 1259 1963 Unknown [id number] 2.16.840.1.539008.3.579.2. 1259 1963 Unknown [id number] 2.16.840.1.578717.3.579.2. 1259 1963 Unknown [id number] 2.16.840.1.692027.3.579.2. 1259 1965 Unknown [id number] [id number]. 1259 Private Health Insurance [id number] Unknown Social History Date Type Detail Facility Start: 03-03-2024 End: 03-17-2024 Rarely consumes alcohol Rarely consumes alcohol [facility] 600 DO Work Phone: Comment on above: 1 CUP COFFEE OCCASIO MIGUEL - 1 CAN SODA OCCASIONALLY; Quit: 09/2013 ( 2-3 P PD ); Start: 10-24-2022 End: 03-03-2024 Tobacco smoking status Ex-smoker (finding) [facility] Tobacco smoking status Never [facility] Start: 03-03-2024 End: 03-17-2024 Sex Assigned At Male [facility] Start: 02-19-2024 Tobacco smoking status Never s moked tobacco (finding) [facility] History of tobacco use Current smoker [facility] [...] [facility] Start: 02-26-2024 Sexual orientation Heterosexual (fin ding) [facility] unknown [facility] Functional Status Date Assessment Result Facility 08-21-2023 Functional Status N/A [facility] 12-24-2022 Functional Status No [facility] 11-08-2022 Functional Status N/A [facility] 10-24-2022 Functional Status No [facility] Clinical [place] 01-18-2012 to 04-08-2024 Bryan Saunders, DPSamantha FACFAS - 04/08/2024 9:10 AM EDTMarc D Dolmiguel angel, DPM FACFAS - 04/01/2024 8:50 AM EDTMarc D Dolmiguel angel, DPM FACFAS - 03/17/2024 9:40 AM EDTMarc D Dolce, DPM FACFAS - 03/03/2024 8:10 AM EDT Note Date & Type Note Facility 04-08-2024 History of Presen t illness Narrative Images from the original note were not included. Patient: Lizzy Kelly : 1965 PCP: [facility] Provider MD Julia SUBJECTIVE This is a [...] < 3 seconds Digits 1-5 bilateral NEURO: [place] Shara 5.07 monofilament was intact B/L. Vibratory [...] referral was placed Dr. Meza at the [facility]. JORGE Leonardo documented in this encounter [facility] 04-01-2024 History of Presen t illness Narrative Images from the original note were not included. Patient: Lizzy Kelly : 1965 PCP: [facility] Provider MD Julia SUBJECTIVE This is [...] < 3 seconds Digits 1-5 bilateral NEURO: [place] Shara 5.07 monofilament was intact B/L. Vibratory [...] necessary JORGE Leonardo documented in this encounter [facility] 03-17-2024 History of Presen t illness Narrative Images from the original note were not included. Patient: Lizzy Brush Andrez Anderson : 1965 PCP: [facility] Provider MD Julia SUBJECTIVE This is [...] < 3 seconds Digits 1-5 bilateral NEURO: [place] Shara 5.07 monofilament was intact B/L. Vibratory [...] examination. JORGE Leonardo documented in this encounter [facility] 03-05-2024 Telephone encounter Note Pt notified of benefits, he is not interested in purchasing at this time Per Sanita with [employer] Covered @ 80% after ded DED: $550 0 applied OOP: $660 0 applied PA # [id number] [facility] 03-05-2024 Miscellaneous Notes Pt notified of benefits, he is not interested in purchasing at this time Per Sanita with [employer] Covered @ 80% after ded DED: $550 0 applied OOP: $660 0 applied PA # [id number] Sent office notes to [facility] to see if it needs PA [facility] documented in this encounter [facility] 03-05-2024 Telephone encounter Note [facility] 03-04-2024 Telephone encounter Note [facility] 03-03-2024 History of Presen t illness Narrative Images from the original note were not included. Patient: Lizzy Kelly Jr : 1965 PCP: [facility] Provider MD Julia SUBJECTIVE This is a [...] rest ice and elevation to no avail. Allergies: No Known Allergies Past Medical History: Past Medical History: Diagnosis Date Ankle sprain Fracture of hand Heart disease Knee sprain Tear of meniscus of knee Tibia/fibula fracture Medications: Current Outpatient Medications: lisinopril 10 MG tablet, Take 10 mg by mouth, Disp: , Rfl: rosuvastatin (Crestor) 10 MG tablet, Take 10 mg by mouth at bedtime, Disp: , Rfl: albuterol HFA 90 mcg/act inhaler, Inhale 2 puffs every 4 (four) hours if needed for wheezing, Disp: , Rfl: furosemide (Lasix) 20 MG tablet, Take 20 mg by mouth Daily, Disp: , Rfl: KLOR-CON 20 MEQ ER tablet, Take 20 mEq by mouth Daily, Disp: , Rfl: methylPREDNISolone (Medrol Dospak) 4 MG tablets, Take 1 tablet (4 mg) by mouth 1 (one) time for 1 dose Follow schedule on package instructions, Disp: 1 each, Rfl: 0 Review of systems: Constitutional: Denies fever, chills, [...] < 3 seconds Digits 1-5 bilateral NEURO: [place] Shara 5.07 monofilament was intact B/L. Vibratory sensation was intact B/L Musculoskeletal: Muscle strength was +5 over 5 all intrinsic and extrinsic muscles tested. There is significant pain with direct palpation of the sinus [...] motion of the ankle or subtalar joint. 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 With significant fluid collection noted within the subtalar joint and within the joint capsule of the subtalar joint. Unable to visualize the interosseous talocalcaneal ligament ASSESSMENT 1. Other synovitis and tenosynovitis, left ankle and foot 2. Left ankle pain, unspecified chronicity 3. Sinus tarsi syndrome, left 4. Sprain of anterior talofibular ligament of left ankle, initial encounter PLAN The patient was educated on the etiology of sinus tarsi syndrome as well as capsulitis of the subtalar joint. They are also instructed on rest and icing the on a regular basis as well. They are educated on the diagnostic ultrasound findings as well. The patient was given injection consisting of 1 cc of 2% lidocaine plain and 1 cc of Kenalog 10 via ultrasonic guidance into the subtalar joint capsule left foot. Ultrasound was necessary to ensure exact placement into the bursa /capsule. I discussed with the patient shoe gear modifications. As well as anti-inflammatory medications. Dispensed a prescription for Medrol Dosepak. Also dispensed an ASO brace The patient was dispensed 1 ASO ankle gauntlet brace prefabricated ([id number]). They are instructed on the use of the brace. The brace was adjusted to ensure proper fit. The brace will be utilized perform immobilization and compression during the process. Patient was digitally scan today for custom-molded orthotic devices. Care was taken to place the subtalar joint in neutral position. The patient was informed that the orthotics will take 3 weeks to arrive from the laboratory. JORGE Leonardo documented in this encounter [facility] 08-21-2023 Evaluation + Plan note Future Scheduled TestsCBC w/ Auto Diff 08/21/23Comprehensive Metabolic Panel 08/21/23Lipid Panel 08/21/23 [facility] 08-21-2023 Hospital Discharg e instructions Follow Up Care 08/21/2023 10:45:14 With:Lennie TRACEY CNP Address: [address] [place] [address]- When:Within 6 Month(s) [facility] 08-21-2023 Hospital Discharg e instructions Patient Education 08/21/2023 08:09:13 Angina Angina [...] Follow these instructions at home: Medicines Take hiev-lon-rstoimr and prescription medicines only as told by [...] provider. Document Revised: 12/09/2020 Document Reviewed: 12/09/2020 [employer] Patient Education 2022 Wikirin. Follow Up Care 02/20/2023 10:49:13 With:Angella Mccallum DO, FAM Address: When:Within 6 Month(s) Comments:schedule a wellness exam [facility] 02-20-2023 Hospital Discharg e instructions Patient Education 02/20/2023 10:33:15 Obesity, Adult, Jlgt-sd-Qfez Obesity, Adult Obesity is having too much [...] food choices, such as grocery stores and [employer]. What are the signs or symptoms? The [...] eat. ?How much exercise you get. Take vzli-pct-leoyfpu and prescription medicines only as told by [...] provider. Document Revised: 01/23/2022 Document Reviewed: 01/23/2022 [employer] Patient Education 2022 [employer]. Follow Up Care 11/21/2022 09:51:50 With:Lennie TRACEY CNP Address: [address] [place], [place] [id number]- When:Within 6 Month(s) [facility] 11-10-2022 Note Subjective POD 1, pt had [...] to discharge home with Follow up at [facility] with Dr. 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 [facility] 11-09-2022 Note Patient: Lizzy Gonsalo cazares Jr. Procedure Summary Date: 11/09/22 Room / Location: [address] / [facility] Operating Room Anesthesia Start: 908 Anesthesia Stop: [...] per anesthesia protocol. No notable events documented. [facility] 11-09-2022 Note Airway Date/Time: 11/09/2022 9:20 AM Urgency: elective General Information and Staff Patient location during procedure: OR Anesthesiologist: Madiha Sampson MD Resident/BRANCH OFFICE MANAGER/CAA: Charlie Huynh MD Performed: resident/BRANCH OFFICE MANAGER/CAA and other anesthesia staff Learner assisted: VELASQUEZ [...] 1 Number of other approaches attempted: 0 [facility] 11-09-2022 Note Arterial Line: Date/Time: 11/09/2022 8:46 [...] 1 % SubQ, 2 mL Staffing Performed: resident/BRANCH OFFICE MANAGER/CAA Anesthesiologist: Madiha Sampson MD Resident/BRANCH OFFICE MANAGER: Charlie Huynh MD [facility] 11-09-2022 Note Patient: Lizzy Painter sage Jr. Procedure Information Date/Time: 11/09/22 0830 Procedure: REPAIR, AAA, ENDOVASCULAR Location: [facility] OR HYBRID / [facility] Operating Room Surgeons: Gina Perrin MD Relevant [...] Last Solid: 11/08/22 Time of Last Liquid: 2200 Time of Last Solid: 0220 Physical Exam Airway Mallampati: II TM distance: [...] Plan discussed with attending. Additional Equipment Requests [facility] 11-09-2022 Note Attestation signed by Gina Perrin MD at 11/09/2022 8:39 AM I personally saw and examined the patient on the same date of service as resident/fellow . I discussed the findings and therapeutic plan with the resident/fellow . I agree with the documentation, except for any edits/updates below. Teaching Physician's Revisions: CHANDRAKANT today [facility] Vascular Surgery DAILY PROGRESS NOTE Subjective Patient [...] from last 7 days Lab Units 11/09/22 0511/08/222035 WBC AUTO 10*3/uL 4.76 5.57 HEMOGLOBIN g/dL 12.6* 12.9* HEMATOCRIT % 40.5 40.2 PLATELETS AUTO 10*3/uL 147* 174 Results from last 7 days Lab Units 11/09/22 0511/08/222035 SODIUM mmol/L 138 140 POTASSIUM mmol/L 4.1 [...] Karla Oconnor MD Vascular Surgery Resident, PGY-5 [facility] 11-08-2022 Hospital Discharg e instructions Patient Education 11/08/2022 15:19:57 Abdominal Aortic [...] hard liquor (44 mL). General instructions Take atbv-esc-cxnpdcx and prescription medicines only as told by [...] provider. Document Revised: 04/01/2020 Document Reviewed: 04/01/2020 [employer] Patient Education 2022 Wikirin. Follow Up Care 11/08/2022 10:50:49 With:Proceed directly to the [facility] emergency department. Address:Unknown When:11/11/2022 15:19:30 [facility] 11-08-2022 Evaluation + Plan note Extrac ryan [...] Date:11/21/2022 09:20:00 AM Scheduled Provider:Lennie TRACEY CNP Location:[facility] Appointment Type:[facility]04-10-2023 Hospital Discharge instructions Follow Up Care 10/08/2022 14:31:48 With:Lennie TRACEY CNP Address: [address] [id number]- When:Within 1 Month(s) [facility] 07-20-2012 History of Present illness NarrativePatient returns [...] with me after stress test results become available.-[facility] 600 DO Work Phone: Evaluation + Plan note Future Appointments Appointment Date:11/21/2022 09:20:00 AM Scheduled Provider:Lennie TRACEY CNP Location:[facility] Appointment Type:[facility] Future Scheduled Tests Laboratory* PSA Screen, Total 10/24/22 * PSA Screen, Total 10/24/22 * Basic Metabolic Panel 10/24/22 * Basic Metabolic Panel 10/24/22 * Lipid Panel 10/24/22 * Lipid Panel 10/24/22 Radiology* US Abdominal Aorta screening for AAA 10/24/22 [facility] Evaluation + Plan note Future Appointments Appointment Date:11/21/2022 09:20:00 AM Scheduled Provider:Lennie TRACEY CNP Location:[facility] Appointment Type: Open [facility] General Surgery [place] Evaluation + Plan note Future Appointments Appointment Date:11/21/2022 09:20:00 AM Scheduled Provider:Lennie TRACEY CNP Location:[facility] Appointment Type: Open Appointment Date:11/29/2022 10:00:00 AM Scheduled Provider[facility] Angio () Future Scheduled Tests Radiology* CTA Abdomen and Pelvis 11/29/22 * [facility] Chest [facility] Future Appointments Appointment Date:02/20/2023 10:20:00 AM Scheduled Provider:Lennie TRACEY CNP Location:[facility] Future Appointments Appointment Date:08/21/2023 10:20:00 AM Scheduled Provider:Lennie TRACEY CNP Location:[facility] Appointment Type: Open [facility] Evaluation + Plan note Future Appointments Appointment Date:02/19/2024 09:00:00 AM Scheduled Provider:Lennie TRACEY CNP Location:[facility] Appointment Type: Open Future Scheduled Tests Laboratory* CBC w/ Auto Diff 08/21/23 * Comprehensive Metabolic Panel 08/21/23 * Lipid Panel 08/21/23 [facility] evaluation note* Diagnosis Other synovitis and tenosynovitis, left [...] initial encounter [facility] Diagnosis Sprain of anterior talofibular ligament of left ankle, initial encounter- Primary Left ankle pain, unspecified chronicity Other synovitis and tenosynovitis, left ankle and foot Sinus tarsi syndrome, left Other enthesopathy of left foot and ankle [M77.52] Contracture, ankle, 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 -[facility] 600 DO Work Phone: History of [...] the merits of diet and weight loss. [facility] Work Phone: History of Present illness Narrative* [...] the merits of diet and weight loss. [facility] Work Phone: History of Present illness NarrativePatient [...] the above we suggest follow-up in a year.[facility] 600 DO Work Phone: History of Present illness Narrative* Patient returns in follow-up of problems as noted. In interim he is done well from a cardiology standpoint but he was found to have a large abdominal aortic aneurysm and he underwent percutaneous intervention in [place]. Details are not all available. Nonetheless he [...] Narrative No data available for this section [facility] Hospital Discharge instructions No data available for this section [facility] General Surgery [place] Progress note No data available for this section [facility] Reason for referral (narrative) Referred by: Lennie TRACEY CNP [facility] Reason for referral (narrative)* Consultation (Routine) - Pending Review Specialty Diagnoses / Procedures Referred By Contac t Referred To Contact Vascular Surgery Diagnoses Venous insufficiency (chronic) (peripheral) Cellulitis of right leg Procedures [place] OFFICE/OUTPATIENT [facility] 60 MINUTES Nam Meza MD [address] [facility], [place] [address] Referral ID Status Reason Start Date Expiration Date Visits Requested Visits Authorized [id number] Pending Review Specialty Services Required 04/08/2024 10/05/2024 [...] Name Dates Details Family history of CABG: Fath er(V17.49, Z82.49) Status:Active Family history of abdominal [...] section and content) DATE CREATED AUTHOR 03/12/2022 [facility] DATE CREATED AUTHOR AUTHOR'S ORGANIZ ATION 02/11/2023 [facility] DATE CREATED AUTHOR AUTHOR'S ORGANIZ ATION 02/27/2023 [facility] DATE CREATED AUTHOR AUTHOR'S ORGANIZ ATION 02/27/2023 [facility] DATE CREATED AUTHOR AUTHOR'S ORGANIZ ATION 02/21/2024 [facility] DATE CREATED AUTHOR AUTHOR'S ORGANIZ ATION 04/10/2024 [facility] d[facility] Specialists EPIC Patient Care team informatio n (unrecognized section and content) Technical Expert Relationship Specialty Start Date End Date Unallocated, Jacqueline Pavon MD [facility] [place] [place] [address] PCP - General Family Medicine 03/03/24 Technical Expert Relationship Specialty Start Date End Date Unallocated, Jacqueline [place] [address] PCP - General Family Medicine 03/03/24 Technical Expert Relationship Specialty Start Date End Date Unallocated, Jacqueline Pavon MD [facility] [address] [facility] [facility] [address] PCP - General Family Medicine 03/03/24 Technical Expert Relationship Specialty Start Date End Date Unallocated, Jacqueline Pavon MD [facility] [place] [address] PCP - General Family Medicine 03/03/24 Technical Expert Relationship Specialty Start Date End Date Unallocated, Jacqueline Pavon MD [facility] [address] [facility] [facility] [address] PCP - General Family Medicine 03/03/24 Technical Expert Relationship Specialty Start Date End Date Unallocated, Jacqueline Pavon MD [facility] [place] [address] PCP - General Family Medicine 03/03/24 Technical Expert Relationship Specialty Start Date End Date Unallocated, Jacqueline Pavon MD [facility] [address] [facility] [place] [address] PCP - General Family Medicine 03/03/24 Technical Expert Relationship Specialty Start Date End Date Unallocated, Jacqueline Pavon MD [address] [place], [place] [address] [address] PCP - General Family Medicine 03/03/24 Reason for Visit (unrecogniz ed section and content) Reason Comments Foot Wound Check RT leg wound Injections FU LT Sinus tarsi in jection Reason Comments Foot Wound Check F/U RT lower leg wou nd Reason Comments Ankle Pain F/U LT ankle sinus t arsi injection x1 Reason Comments Ankle Pain LT ankle pain Reason Onset Date Comments Foot Orthotics 03/03/2024 Scanned 03/03/24 FOR RECORDS PERTAINING TO PATIENTS WHO ARE [...] BE BASED ON THE PRIMARY CLINICAL RECORDS. [facility] provides no warranty or guarantee of the accuracy or completeness of information in this document.
== END 2024-06-25 09:11 | disposition home or self-care (01) ==
LOC: VC 08:42
PROVIDERS: PCP Radiology Diagnostic Radiology; Visit Provider Radiology Diagnostic Radiology
DX: I80.01 Phlebitis and thrombophlebitis of superficial vessels of right lower extremity (principal)
CPT/HCPCS: 93971; G0463